=== PATIENT | female | born 1950 | race Caucasian/White ===

== ENCOUNTER 2022-10-18 10:18 | Emergency (ER) | payer MEDICARE, SELFPAY ==
[2022-10-18 10:34] VITALS: BP 179/65; PULSE 60; RESP 18; TEMP 36.6; O2SAT 99; BMI 28.8
--- NOTE | 2022-10-18 10:38 | PC.NURSE ---
72 y/o F pw concerns for elevated blood pressure this AM. pt with hx of HTN. VSS, aox3, santosh hudson recs
[2022-10-18 11:14] VITALS: BP 153/51; PULSE 51; RESP 16; TEMP 36.8; O2SAT 93
--- NOTE | 2022-10-18 11:55 | ECG_ITS ---
Test Reason : CP Blood Pressure : / mmHG Vent. Rate : 048 BPM Atrial Rate : 048 BPM P-R Int : 164 ms QRS Dur : 078 ms QT Int : 476 ms P-R-T Axes : 048 000 008 degrees QTc Int : 425 ms Sinus bradycardia Otherwise normal ECG No previous ECGs available Referred By: Romero Stokes Electronically Signed By:HARMONY LARRY MD
--- NOTE | 2022-10-18 11:56 | ED.GENADULT ---
HPI - General Adult General Chief complaint: General Medical Stated complaint: high bp lightheaded Time Seen by Provider: 10/18/22 11:22 Source: patient Mode of arrival: ambulatory Limitations: no limitations History of Present Illness HPI narrative: 72-year-old female with history of hypertension presents from dermatology office with elevated blood pressure. She has history of hypertension for which he takes triamterene-hydrochlorothiazide and atenolol. She denies any chest pain, shortness breath, palpitations. She does have intermittent lightheadedness. The symptoms started approximately 3 months ago. She has reported that her blood pressure has been more on the elevated side as of recent. She has been on her same medications for quite some time. This patient denies any headache, nausea, vomiting, vision changes or any additional other complaints at this time Related Data Home Medications Medication Instructions Recorded Confirmed ascorbate calcium (vitamin C) 500 500 mg PO DAILY 05/28/22 08/09/22 mg tablet cholecalciferol (vitamin D3) 25 25 mcg PO DAILY 05/28/22 08/09/22 mcg (1,000 unit) capsule citalopram 20 mg tablet 20 mg PO DAILY 05/28/22 08/09/22 docusate sodium 100 mg capsule 100 mg PO DAILY 05/28/22 08/09/22 (Colace) potassium citrate 10 mEq (1,080 10 meq PO DAILY 05/28/22 08/09/22 mg) tablet,extended release simvastatin 40 mg tablet 40 mg PO QPM 05/28/22 08/09/22 triamterene 75 1 tab PO DAILY 05/28/22 08/09/22 mg-hydrochlorothiazide 50 mg tablet Previous Rx's Medication Instructions Recorded blood pressure monitor (Blood #1 ea 05/28/22 Pressure Kit) triamcinolone acetonide 0.5 % 1 appl topical BID #15 grams 05/28/22 topical cream alprazolam 0.25 mg tablet 0.25 mg PO BEDTIME PRN sleep #10 08/09/22 tabs blood pressure monitor (Blood #1 ea 08/09/22 Pressure Kit) omeprazole 20 mg capsule,delayed 20 mg PO DAILY #30 caps 08/09/22 release cephalexin 500 mg capsule 500 mg PO BID #14 caps 10/18/22 lisinopril 10 mg tablet 10 mg PO DAILY #14 tabs 10/18/22 lisinopril 10 mg tablet 10 mg PO DAILY #30 tabs 10/18/22 Allergies Allergy/AdvReac Type Severity Reaction Status Date / Time Sulfa (Sulfonamide Allergy Severe Anaphylaxis Verified 08/09/22 14:54 Antibiotics) atenolol AdvReac Intermediate bradycardia Verified 10/18/22 13:18 Review of Systems Review of Systems: Yes all other systems are reviewed and are negative Constitutional: Constitutional: Reports no additional constitutional complaints Eyes: Eyes: Reports no additional eye complaints ENT: Reports system reviewed and no additional complaints, except as documented Cardiovascular: Cardiovascular: Reports no additional cardiovascular complaints and Reports lightheadedness Respiratory: Respiratory: Reports no additional respiratory complaints Gastrointestinal: Gastrointestinal: Reports no additional gastrointestinal complaints Genitourinary: Genitourinary: Reports no additional female genitourinary complaints Musculoskeletal: Musculoskeletal: Reports no additional musculoskeletal complaints Integumentary/Breasts: Skin/Breast: Reports system reviewed and no additional complaints, except as docu Neurologic: Reports system reviewed and no additional complaints, except as documented Psychiatric: Psychiatric: Reports no additional psychiatric complaints Endocrine: Endocrine: Reports no additional endocrine complaints Hematologic/Lymphatic: Hematologic/Lymphatic: Reports no additional hematologic/lymphatic complaints Allergic/Immunologic: Allergic/Immunologic: Reports no additional allergic/immunologic complaints REPLACED BY [facility] Past Medical History Attestation statement: The following information was validated with the patient. (Hypertension, squamous cell carcinoma) Surgical History H/O eye surgery H/O rectocele repair Hx of tonsillectomy Family History Family History Father No problems noted. Mother No problems noted. Sister No problems noted. Daughter No problems noted. Daughter No problems noted. Social History Social History Housing: House Alcohol intake: current Patient Tobacco Use Status: Former Tobacco user Tobacco use type: Cigarette Years Smoked: quit 1984 e-Cigarette/Vaping Use: Never Used Second Hand Smoke Exposure: No Advance Directives: No Current occupational status: retired Cognitive needs: No Hearing needs: No Vision needs: Yes Physical Exam ED Vital Signs: Vital Signs - 24 hr 10/18/22 10:34 10/18/22 11:14 Temperature 97.9 F 98.2 F Pulse Rate 60 51 Respiratory Rate 18 16 Blood Pressure 179/65 H 153/51 H Pulse Oximetry 99 93 Oxygen Delivery Method Room Air Room Air BMI result Body Mass Index 28.8 Const General: cooperative, healthy appearing, comfortable, no acute distress, well developed, alert, awake and Physically active Orientation/consciousness: oriented to person, oriented to place, oriented to time and patient oriented x3 HENMT Head: Yes normal to inspection Eyes General: appearance normal, both eyes and all related structures Neck Neck: Yes no JVD Resp Effort & Inspection: normal respiratory effort and able to speak in complete sentences Auscultation: clear to auscultation bilaterally Cardio Rate: regular rate Rhythm: regular rhythm Heart sounds: no gallops, no murmurs and no rubs GI Palpation (GI): nontender Skin Lesions: lesion noted (right leg) Neuro General: oriented to person, oriented to place, oriented to time, patient oriented x3, moves all extremities, no focal motor deficits and CN's II-XI intact bilaterally Psych Appearance: grossly normal Course Course Course Narrative: 72-year-old female with history of hypertension presents for evaluation of hypertension. She does have some intermittent lightheadedness over the past 3 months. Her examination is unremarkable. Obtain EKG, , CBC, metabolic panel, urinalysis. Differential diagnosis could include anemia, electrolyte abnormality, hypokalemia, hyponatremia, UTI with, central hypertension, renal insufficiency, under medication. Discussed plan with patient. She understands the reason for workup. Patient at this time does not require blood pressure management acutely. She is not hypertensive urgency or emergency. Patient can follow up with primary care provider for medication adjustments. Reevaluation(s) Reevaluation #1: Discussed results with patient as well as her primary care provider Dr. Jenkins. It is likely that she may be lightheaded from symptomatic bradycardia. Will stop her atenolol and we will start her on lisinopril 10 mg to follow-up with her primary care provider. In addition, she has slight evidence for urinary tract infection. Will put her on Keflex 500 mg twice a day for Time: 13:59 Medical Decision Making Medical Decision Making MDM Narrative: 72-year-old female presents for asymptomatic hypertension. Patient has a longstanding history of hypertension currently on 3 medications. She does report 3 month history of intermittent lightheadedness. Evaluation was unremarkable. She was mildly hypertensive. She is compliant with her medications. I suspect patient will be able to be discharged home following workup. I will obtain an EKG given her history of lightheadedness to rule out cardiac dysrhythmia. I will also obtain a laboratory analysis to rule out anemia, electrolyte abnormality. She does not need any cardiac enzymes as her symptoms have been going on for 3 months, denies any chest pain or other significant cardiac symptoms at this time. Patient was referred by her primary care doctor's office. Differential Diagnosis Differential Diagnoses: The differential diagnosis associated with the presentation includes (Hypertension, hypertensive urgency, hypertensive emergency, electrolyte abnormality, anemia, cardiac dysrhythmia, renal insufficiency) Hypertension Admission/Observation Consideration of admission/observation: Escalation of care including admission/observation considered (However, patient's blood pressure is appropriately controlled at this time that she could follow up for medication adjustment as an outpatient.) Consult Healthcare Provider Management of the patient was discussed with: Primary Care Provider (Dr. Winkler) Lab Data MDM Lab Attestation statement: I reviewed the patient's lab results. 10/18/22 12:08 10/18/22 12:08 Labs: Lab Results 10/18/22 10/18/22 10/18/22 Range/Units 12:08 12:08 13:07 WBC 8.5 (4.8-10.8) X10*3/uL RBC 4.58 (4.20-5.50) X10*6/uL Hgb 13.5 (12.0-16.0) g/dl Hct 40.6 (37.0-47.0) % MCV 88.6 (80.0-98.0) fL MCH 29.5 (27.0-33.0) pg MCHC 33.3 (31.0-35.0) g/dl RDW 12.7 (11.0-16.0) % Plt Count 277 (160-400) X10*3/uL MPV 9.7 (9.4-12.3) fL Immature Gran % (Auto) 0.4 (0.0-0.4) % Neut % (Auto) 69.0 (45-73) % Lymph % (Auto) 20.6 (20-40) % [place] % (Auto) 8.9 (2-11) % Eos % (Auto) 0.6 (0-4) % Baso % (Auto) 0.5 (0-2) % Lymph # (Auto) 1.8 (1.2-4.9) X10*3/uL [place] # (Auto) 0.8 (0.1-1.2) X10*3/uL Eos # (Auto) 0.1 (0.0-0.4) X10*3/uL Baso # (Auto) 0.0 (0.0-0.2) X10*3/uL Abs Immat Gran (auto) 0.03 (0.00-0.03) X10*3/uL Absolute Neuts (auto) 5.9 (2.0-8.3) x10*3/uL Absolute Nucleated RBC 0.000 (0.0-0.012) X10*3/uL Nucleated RBC % (auto) 0.0 (0.0-0.2) /100WBC Sodium 135 (135-145) mmol/L Potassium 4.1 (3.3-5.1) mmol/L Chloride 102 (96-108) mmol/L Carbon Dioxide 25 (22-29) mmol/L Anion Gap 12 (12-20) BUN 19 H (9-16) mg/dL Creatinine 0.79 (0.5-1.4) mg/dL Estim Creat Clear Calc 71.7 Estimated GFR > 60 Random Glucose 98 (60-115) mg/dL Calcium 9.3 (8.4-10.2) mg/dL Urine Color Yellow Urine Appearance Turbid Urine pH 8.0 (5.0-9.0) Ur Specific [place] 1.010 (1.005-1.025) Urine Protein Negative (Neg-Trace) mg/dL Urine Glucose (UA) Negative (Negative) mg/dL Urine Ketones Negative (Negative) mg/dL Urine Blood Negative (Negative) Urine Nitrite Negative (Negative) Ur Leukocyte Esterase Small (1+) H (Negative) Urine RBC 0-2 (0-2) /HPF Urine WBC 11-20 H (0-5) /HPF Ur Squamous Epith Cells >20 (0-2) /HPF Urine Bacteria 4+ (None Seen) Hyaline Casts 0-2 (0-2) /LPF Independent Interpretation I performed an independent interpretation of an: EKG (Sinus bradycardia heart rate 48, normal intervals, nonspecific T-wave changes, no acute ST elevations or depressions.) External Record Review External record reviewed: Office record ( Po) Tests considered The following testing was considered but not selected: Troponin, however, patient does not have any active ischemic symptoms her symptoms appear to be stable and chronic in nature. Doubt acute coronary syndrome. Chronic Conditions Patient?s care impacted by: Hypertension Core Measures Measure exclusions: not indicated Discharge Plan Discharge Clinical Impression: Hypertension, Acute UTI Patient Disposition: Home, Self-Care Instructions: Urinary Tract Infection in Women (ED), Hypertension (ED) Additional Instructions: Stop taking your atenolol until you speak with your primary care provider Prescriptions: New cephalexin 500 mg capsule 500 mg PO BID Qty: 14 0RF lisinopril 10 mg tablet 10 mg PO DAILY Qty: 14 0RF No Action lisinopril 10 mg tablet 10 mg PO DAILY Qty: 30 0RF simvastatin 40 mg tablet 40 mg PO QPM citalopram 20 mg tablet 20 mg PO DAILY triamterene-hydrochlorothiazid 75-50 mg tablet 1 tab PO DAILY docusate sodium [Colace] 100 mg capsule 100 mg PO DAILY (DME) blood pressure monitor [Blood Pressure Kit] Kit See Rx Instructions .ROUTE .MEDSUPPLY Qty: 1 0RF Rx Instructions: As directed cholecalciferol (vitamin D3) 25 mcg (1,000 unit) capsule 25 mcg PO DAILY potassium citrate 10 mEq (1,080 mg) tablet extended release 10 meq PO DAILY ascorbate calcium (vitamin C) 500 mg tablet 500 mg PO DAILY triamcinolone acetonide 0.5 % cream 1 appl topical BID Qty: 15 0RF alprazolam 0.25 mg tablet 0.25 mg PO BEDTIME PRN (Reason: sleep) Qty: 10 0RF omeprazole 20 mg capsule,delayed release(DR/EC) 20 mg PO DAILY Qty: 30 0RF (DME) blood pressure monitor [Blood Pressure Kit] Kit See Rx Instructions .ROUTE .MEDSUPPLY Qty: 1 0RF Rx Instructions: As directed Interventions: ED Discharge Assessment Last Done: 10/18/22 14:00 Discharge Date/Time: 10/18/22 14:01
[2022-10-18 12:18] LABS: MANUAL DIFF FLAG NO
[2022-10-18 12:20] LABS: Basophils Percent Auto 0.5 % (0-2); Eosinophils Absolute Auto 0.1 X10*3/uL (0.0-0.4); Eosinophils Percent Auto 0.6 % (0-4); Hematocrit 40.6 % (37.0-47.0); Hemoglobin 13.5 g/dl (12.0-16.0); Imm Gran Abs Auto 0.03 X10*3/uL (0.00-0.03); Imm Gran Pct Auto 0.4 % (0.0-0.4); Lymphocytes Absolute Auto 1.8 X10*3/uL (1.2-4.9); Lymphocytes Percent Auto 20.6 % (20-40); Mean Corpuscular HGB Conc 33.3 g/dl (31.0-35.0); Mean Corpuscular Hemoglobin 29.5 pg (27.0-33.0); Mean Corpuscular Volume 88.6 fL (80.0-98.0); Mean Platelet Volume 9.7 fL (9.4-12.3); Monocytes Absolute Auto 0.8 X10*3/uL (0.1-1.2); Monocytes Percent Auto 8.9 % (2-11); Neutrophils Absolute Auto 5.9 x10*3/uL (2.0-8.3); Platelet Count 277 X10*3/uL (160-400); Red Blood Count 4.58 X10*6/uL (4.20-5.50); Red Cell Distribution Width 12.7 % (11.0-16.0); White Blood Count 8.5 X10*3/uL (4.8-10.8)
[2022-10-18 12:44] LABS: Anion Gap 12 (12-20); Blood Urea Nitrogen 19 mg/dL (9-16); Calcium 9.3 mg/dL (8.4-10.2); Carbon Dioxide 25 mmol/L (22-29); Chloride 102 mmol/L (96-108); Creatinine Clr Calc Pharmacy 71.7; Estimated Glomerular Filt Rate > 60; Glucose Random 98 mg/dL (60-115); Potassium 4.1 mmol/L (3.3-5.1); Sodium 135 mmol/L (135-145)
[2022-10-18 13:18] LABS: Appearance Urine Turbid; Color Urine Yellow; Glucose Urine UA Negative (Negative); Leukocyte Esterase Urine Small (1+) (Negative); Nitrite Urine Negative (Negative); UMIC TRIGGER UACC YES; Urine Blood Negative (Negative); Urine Ketones Negative (Negative); Urine Protein Negative (Neg-Trace)
[2022-10-18 13:52] LABS: Bacteria Urine 4+ (None Seen); Hyaline Casts Urine 0-2 /LPF (0-2); RBC Urine 0-2 /HPF (0-2); Squamous Epithelial Cell Urine >20 /HPF (0-2); UACC Culture Trigger YES
== END 2022-10-18 14:01 | disposition home or self-care (01) ==
PROVIDERS: Emergency Provider Emergency Medicine; PCP Internal Medicine
DX: I10 Essential (primary) hypertension (principal); R42 Dizziness and giddiness; N39.0 Urinary tract infection, site not specified
CPT/HCPCS: 36415; 80048; 81001; 85025; 87086; 93005; 99283; 99284

== ENCOUNTER 2023-02-21 09:27 | Outpatient (REF) | payer MEDICARE, SELFPAY ==
[2023-02-21 11:23] LABS: MANUAL DIFF FLAG NO
[2023-02-21 11:37] LABS: Basophils Percent Auto 0.4 % (0-2); Eosinophils Absolute Auto 0.1 X10*3/uL (0.0-0.4); Eosinophils Percent Auto 1.2 % (0-4); Hematocrit 40.3 % (37.0-47.0); Hemoglobin 13.4 g/dl (12.0-16.0); Imm Gran Abs Auto 0.02 X10*3/uL (0.00-0.03); Imm Gran Pct Auto 0.4 % (0.0-0.4); Lymphocytes Absolute Auto 1.3 X10*3/uL (1.2-4.9); Lymphocytes Percent Auto 23.4 % (20-40); Mean Corpuscular HGB Conc 33.3 g/dl (31.0-35.0); Mean Corpuscular Hemoglobin 30.2 pg (27.0-33.0); Mean Platelet Volume 10.2 fL (9.4-12.3); Monocytes Absolute Auto 0.6 X10*3/uL (0.1-1.2); Monocytes Percent Auto 11.2 % (2-11); Neutrophils Absolute Auto 3.6 x10*3/uL (2.0-8.3); Neutrophils Percent Auto 63.4 % (45-73); Platelet Count 304 X10*3/uL (160-400); Red Blood Count 4.43 X10*6/uL (4.20-5.50); Red Cell Distribution Width 13.7 % (11.0-16.0); White Blood Count 5.7 X10*3/uL (4.8-10.8)
[2023-02-21 12:00] LABS: Alanine Aminotransferase 14 U/L (0-31); Albumin Level 4.3 g/dL (3.5-5.0); Alkaline Phosphatase 53 U/L (39-117); Anion Gap 14 (12-20); Aspartate Amino Transferase 18 U/L (5-31); Bilirubin Total 0.7 mg/dL (0.0-1.0); Blood Urea Nitrogen 20 mg/dL (9-16); Calcium 9.9 mg/dL (8.4-10.2); Carbon Dioxide 27 mmol/L (22-29); Chloride 102 mmol/L (96-108); Cholesterol 264 mg/dL; Estimated Glomerular Filt Rate > 60; Glucose Random 102 mg/dL (60-115); HDL Cholesterol 70 mg/dL; LDL Cholesterol Calculated 171 mg/dl; Potassium 3.9 mmol/L (3.3-5.1); Sodium 139 mmol/L (135-145); Triglycerides 118 mg/dL
[2023-02-21 12:31] LABS: Folate 9.4 ng/mL (> or = 4.0); Free T4 (Free Thyroxine) 1.12 ng/dL (0.71-1.85); Thyroid Stimulating Hormone 3.91 uIU/mL (0.32-4.0); Vitamin B12 276 pg/mL (200-900)
== END 2023-02-21 09:28 | disposition home or self-care (01) ==
LOC: HO.HMGCLDS 09:27
PROVIDERS: PCP Internal Medicine; Visit Provider Internal Medicine
DX: E78.00 Pure hypercholesterolemia, unspecified (principal); E55.9 Vitamin D deficiency, unspecified
CPT/HCPCS: 36415; 80053; 80061; 82306; 82607; 82746; 84439; 84443; 85025

== ENCOUNTER 2023-03-03 10:23 | Outpatient (REF) | payer MEDICARE, SELFPAY ==
[2023-03-03 12:27] LABS: Influenza A PCR NEGATIVE (Negative); Influenza B PCR NEGATIVE (Negative); Resp Syncy Virus RNA Qual PCR NEGATIVE (Negative); SARS COV2 PCR INHOUSE NEGATIVE (Negative)
== END 2023-03-03 10:24 | disposition home or self-care (01) ==
LOC: HO.LAB 10:23
PROVIDERS: Visit Provider Physician Assistant
DX: Z20.822 Contact with and (suspected) exposure to COVID-19 (principal); R09.89 Other specified symptoms and signs involving the circulatory and respiratory systems
CPT/HCPCS: 0241U

== ENCOUNTER 2023-03-13 07:40 | Emergency (ER) | payer MEDICARE, SELFPAY ==
--- NOTE | ~2023-03-13 | CT_ITS ---
EXAMINATION: CT ABDOMEN AND PELVIS WITH CONTRAST CLINICAL INFORMATION: Acute gastrointestinal bleeding. Suspect colitis. COMPARISON: None available. TECHNIQUE: Multidetector volumetric images were obtained from the superior aspect of the liver through the pubic symphysis following administration 85 mL of Isovue 370 intravenous contrast. Sagittal and coronal reformatted images were obtained on the technologist's workstation. Oral contrast: No This CT examination was performed using dose optimization techniques as appropriate, variously including the following: *Automated exposure control *Adjustment of mA and/or kV according to patient size (this includes techniques or standardized protocols for targeted exams where dose is matched to indication/reason for exam; i.e. extremities or head) *Use of iterative reconstruction technique DLP: 519 mGy-cm FINDINGS: LUNG BASES: Nonspecific distal esophageal wall thickening. Moderate hiatal hernia. LIVER, GALLBLADDER, AND BILIARY TREE: The liver is normal in size and contour. 2.9 cm posterior right hepatic cyst. Additional hypodensities are too small to characterize. No suspicious hepatic lesion or biliary ductal dilatation is present. The gallbladder is unremarkable with no evidence of radiopaque gallstones, gallbladder wall thickening, or obvious pericholecystic inflammatory changes. PANCREAS: No ductal dilatation. SPLEEN: Not enlarged. Few hypodensities too small to characterize. ADRENAL GLANDS: Nodular thickening at the apex of the left adrenal gland. KIDNEYS AND URETERS: The kidneys are symmetric in size. There is a lobulated contour to the kidneys. The kidneys enhance somewhat heterogeneously with possible striated nephrograms. No hydronephrosis or hydroureter. BLADDER: Unremarkable. GASTROINTESTINAL TRACT: Wall thickening of the rectosigmoid colon small and large bowel loops are of normal caliber. Inadequate distention of the hepatic flexure and proximal transverse colon limits evaluation. No small bowel obstruction. ABDOMINAL WALL: No significant hernia is appreciated. LYMPH NODES: No bulky abdominal or pelvic lymphadenopathy. VASCULAR: Marked atherosclerotic changes of the distal abdominal aorta. No abdominal aortic aneurysm. PELVIC VISCERA: The uterus and adnexa are unremarkable. OSSEOUS STRUCTURES: No destructive bone lesions. CT/CT abdomen pelvis w IV con IMPRESSION: Wall thickening of the rectosigmoid colon. Correlation should be made with direct visualization. Heterogeneous enhancement of bilateral kidneys with possible striated nephrograms. Advise correlation with urinalysis to exclude infection.
[2023-03-13 07:48] VITALS: BP 136/66; PULSE 80; RESP 16; TEMP 36.8; O2SAT 97; BMI 29.9
[2023-03-13 07:54] VITALS: BP 136/66; PULSE 80; RESP 16; TEMP 36.8; O2SAT 97
[2023-03-13 08:35] LABS: MANUAL DIFF FLAG NO
[2023-03-13] MEDS: 0.9 % Sodium Chloride 1,000 ML 999 ML IV (08:35)
[2023-03-13 08:37] LABS: Basophils Percent Auto 0.3 % (0-2); Eosinophils Absolute Auto 0.1 X10*3/uL (0.0-0.4); Eosinophils Percent Auto 0.8 % (0-4); Hematocrit 39.8 % (37.0-47.0); Hemoglobin 13.2 g/dl (12.0-16.0); Imm Gran Abs Auto 0.04 X10*3/uL (0.00-0.03); Imm Gran Pct Auto 0.4 % (0.0-0.4); Lymphocytes Absolute Auto 1.7 X10*3/uL (1.2-4.9); Lymphocytes Percent Auto 17.9 % (20-40); Mean Corpuscular HGB Conc 33.2 g/dl (31.0-35.0); Mean Corpuscular Hemoglobin 29.6 pg (27.0-33.0); Mean Corpuscular Volume 89.2 fL (80.0-98.0); Mean Platelet Volume 9.3 fL (9.4-12.3); Monocytes Absolute Auto 0.8 X10*3/uL (0.1-1.2); Monocytes Percent Auto 8.3 % (2-11); Neutrophils Absolute Auto 6.7 x10*3/uL (2.0-8.3); Neutrophils Percent Auto 72.3 % (45-73); Platelet Count 316 X10*3/uL (160-400); Red Blood Count 4.46 X10*6/uL (4.20-5.50); Red Cell Distribution Width 13.2 % (11.0-16.0); White Blood Count 9.3 X10*3/uL (4.8-10.8)
[2023-03-13 08:48] LABS: Prothrombin Time 10.9 SEC (10.0-13.1)
[2023-03-13 08:49] LABS: Anion Gap 14 (12-20); Blood Urea Nitrogen 32 mg/dL (9-16); C Reactive Protein 0.21 mg/dL (< or = 0.50); Calcium 9.6 mg/dL (8.4-10.2); Carbon Dioxide 25 mmol/L (22-29); Chloride 105 mmol/L (96-108); Creatinine Clr Calc Pharmacy 41.4; Estimated Glomerular Filt Rate 50; Glucose Random 106 mg/dL (60-115); Potassium 3.7 mmol/L (3.3-5.1); Sodium 140 mmol/L (135-145)
[2023-03-13 09:14] LABS: Erythrocyte Sedimentation Rate 20 MM/HR (0-20)
[2023-03-13] MEDS: iohexoL 350 MG/ML 75 ML INFUS..BTL 85 ML IV (09:37)
--- NOTE | 2023-03-13 10:06 | ED.GIBLEED ---
HPI - GI Bleed General Chief complaint: GI Bleed Stated complaint: bloody diarrhea Time Seen by Provider: 03/13/23 07:55 Source: patient Mode of arrival: ambulatory Limitations: no limitations History of Present Illness HPI Narrative: 72-year-old female presents with GI bleed. Symptoms started today. Her symptoms are preceded with 2 weeks of diarrhea. Patient's was been watery nonbloody, no melena. She denies any significant abdominal pain, fever chills. There is no relieving or exacerbating features. Yesterday she noted a small amount of blood on toilet tissue. Today, she had a dry a real episode with significant amount of blood in the stool. She feels slightly lightheaded but no nausea vomiting. Patient describes her symptoms as moderate to severe. She denies a history of this. Related Data Home Medications Medication Instructions Recorded Confirmed ascorbate calcium (vitamin C) 500 500 mg PO DAILY 05/28/22 02/06/23 mg tablet cholecalciferol (vitamin D3) 25 25 mcg PO DAILY 05/28/22 02/06/23 mcg (1,000 unit) capsule docusate sodium 100 mg capsule 100 mg PO DAILY 05/28/22 02/06/23 (Colace) potassium citrate 10 mEq (1,080 10 meq PO DAILY 05/28/22 02/06/23 mg) tablet,extended release Previous Rx's Medication Instructions Recorded triamcinolone acetonide 0.5 % 1 appl topical BID #15 grams 05/28/22 topical cream blood pressure monitor (Blood #1 ea 08/09/22 Pressure Kit) omeprazole 20 mg capsule,delayed 20 mg PO DAILY #30 caps 08/09/22 release citalopram 20 mg tablet 20 mg PO DAILY #90 tabs 12/18/22 alprazolam 0.5 mg tablet 0.25 mg PO BEDTIME PRN sleep #10 02/21/23 tabs azithromycin 250 mg tablet 250 mg PO DAILY 5 days #6 tabs 03/03/23 (Zithromax Z-Dylan) cetirizine 10 mg tablet (All Day 10 mg PO DAILY #90 tabs 03/12/23 Allergy (cetirizine)) lisinopril 10 mg tablet 10 mg PO DAILY 90 days #90 tabs 03/12/23 simvastatin 40 mg tablet 40 mg PO QPM #90 tabs 03/12/23 triamterene 75 1 tab PO DAILY 90 days #90 tabs 03/12/23 mg-hydrochlorothiazide 50 mg tablet Allergies Allergy/AdvReac Type Severity Reaction Status Date / Time Sulfa (Sulfonamide Allergy Severe Anaphylaxis Verified 03/03/23 09:57 Antibiotics) atenolol AdvReac Intermediate bradycardia Verified 03/03/23 09:57 Review of Systems Review of Systems: CONSTITUTIONAL: Denies weight loss, fever and chills. HEENT: Denies changes in vision and hearing. RESPIRATORY: Denies SOB and cough. CV: Denies palpitations no CP. GI: See HPI : Denies dysuria and urinary frequency. MSK: Denies myalgia and joint pain. SKIN: Denies rash and pruritus. NEUROLOGICAL: Denies headache and syncope. PSYCHIATRIC: Denies recent changes in mood. Denies anxiety and depression. All other ROS are negative unless in HPI PMFSH Past Medical History Surgical History H/O eye surgery H/O rectocele repair Hx of tonsillectomy Family History Family History Father No problems noted. Mother No problems noted. Sister No problems noted. Daughter No problems noted. Daughter No problems noted. Social History Social History Housing: House Alcohol intake: current Alcohol intake frequency: 0-2 drinks per day Patient Tobacco Use Status: Former Tobacco user Tobacco use type: Cigarette Years Smoked: quit 1985 Smoked in Last 30 Days: No e-Cigarette/Vaping Use: Never Used Second Hand Smoke Exposure: No Use of substances other than those prescribed or required for medical reasons: No Advance Directives: No Advance Directives Information Provided: Yes Current occupational status: retired Cognitive needs: No Hearing needs: No Vision needs: Yes Physical Exam Vital Signs: Vital Signs: Last Vital Signs Temp 98.3 F 03/13/23 07:54 Pulse 80 03/13/23 07:54 Resp 16 03/13/23 07:54 BP 136/66 03/13/23 07:54 Pulse Ox 97 03/13/23 07:54 O2 Del Method Room Air 03/13/23 07:54 BMI result Body Mass Index 29.9 GEN: Well developed, no acute distress, alert, oriented HEENT: Normocephalic, atraumatic, normal external ears, nose appears normal, no oropharyngeal edema or exudates Eyes: Normal to appearance Neck: Supple, no lymphadenopathy Respiratory: Talks in complete sentences, no respiratory distress, clear to auscultation bilaterally Cardiovascular: Regular rate and rhythm, no murmurs rubs or gallops Abdomen: Soft, nontender, nondistended, no guarding, no rebound Back: No CVA tenderness Extremities: No clubbing cyanosis or edema Neurologic: No focal neurologic deficits, cranial nerves 2-12 intact, strength is 5/5 bilaterally Skin: No rash Course Course Course Narrative: 72-year-old female presents with lower GI bleed. Examination was benign. She is not orthostatic. CT scan shows a focal area of colitis. Will treat with antibiotics. Gave strict return instructions pressure regarding the GI bleeding. Her hemoglobin hematocrit were stable. She has no evidence of bleeding diathesis. Patient understands all discharge instructions and all questions were addressed and answered. Medications Administered Discontinued Medications Generic Name Dose Route Start Last Admin Trade Name Freq PRN Reason Stop Dose Admin Sodium Chloride 1,000 mls @ 999 mls/hr 03/13/23 08:15 03/13/23 08:35 Ns IV 03/13/23 09:15 999 mls/hr .Q1H1M PREM Administration Iohexol 85 ml 03/13/23 09:36 03/13/23 09:37 Iohexol 350 Mg/Ml 75 Ml Infus..Btl IV 03/13/23 09:37 85 ml ONCE ONE Administration Medical Decision Making Medical Decision Making [facility] Narrative: 72-year-old female presents with lower GI bleed and diarrhea for 2 weeks. Differential diagnosis: Hemorrhoidal, diverticular, colitis, vascular Plan CT scan of the abdomen pelvis, laboratory analysis, orthostatic vital signs frequent re-evaluation. Doubt cause traffic pathology such as aorta enteric fistula, AAA, dissection, massive GI hemorrhage Differential Diagnosis Differential Diagnoses: The differential diagnosis associated with the presentation includes (See above) Colitis, GI bleed Lab Data 03/13/23 08:28 03/13/23 08:28 Labs: Lab Results 03/13/23 03/13/23 03/13/23 Range/Units 08:28 08:28 08:28 WBC 9.3 (4.8-10.8) X10*3/uL RBC 4.46 (4.20-5.50) X10*6/uL Hgb 13.2 (12.0-16.0) g/dl Hct 39.8 (37.0-47.0) % MCV 89.2 (80.0-98.0) fL MCH 29.6 (27.0-33.0) pg MCHC 33.2 (31.0-35.0) g/dl RDW 13.2 (11.0-16.0) % Plt Count 316 (160-400) X10*3/uL MPV 9.3 L (9.4-12.3) fL Immature Gran % (Auto) 0.4 (0.0-0.4) % Neut % (Auto) 72.3 (45-73) % Lymph % (Auto) 17.9 L (20-40) % [place] % (Auto) 8.3 (2-11) % Eos % (Auto) 0.8 (0-4) % Baso % (Auto) 0.3 (0-2) % Lymph # (Auto) 1.7 (1.2-4.9) X10*3/uL [place] # (Auto) 0.8 (0.1-1.2) X10*3/uL Eos # (Auto) 0.1 (0.0-0.4) X10*3/uL Baso # (Auto) 0.0 (0.0-0.2) X10*3/uL Abs Immat Gran (auto) 0.04 H (0.00-0.03) X10*3/uL Absolute Neuts (auto) 6.7 (2.0-8.3) x10*3/uL Absolute Nucleated RBC 0.000 (0.0-0.012) X10*3/uL Nucleated RBC % (auto) 0.0 (0.0-0.2) /100WBC ESR 20 (0-20) MM/HR PT 10.9 (10.0-13.1) SEC INR 1.0 (0.9-1.1) APTT 40.0 H (26.0-36.4) SEC Sodium (135-145) mmol/L Potassium (3.3-5.1) mmol/L Chloride (96-108) mmol/L Carbon Dioxide (22-29) mmol/L Anion Gap (12-20) BUN (9-16) mg/dL Creatinine (0.5-1.4) mg/dL Estim Creat Clear Calc Estimated GFR Random Glucose (60-115) mg/dL Calcium (8.4-10.2) mg/dL C-Reactive Protein (< or = 0.50) mg/dL 03/13/23 Range/Units 08:28 WBC (4.8-10.8) X10*3/uL RBC (4.20-5.50) X10*6/uL Hgb (12.0-16.0) g/dl Hct (37.0-47.0) % MCV (80.0-98.0) fL MCH (27.0-33.0) pg MCHC (31.0-35.0) g/dl RDW (11.0-16.0) % Plt Count (160-400) X10*3/uL MPV (9.4-12.3) fL Immature Gran % (Auto) (0.0-0.4) % Neut % (Auto) (45-73) % Lymph % (Auto) (20-40) % [place] % (Auto) (2-11) % Eos % (Auto) (0-4) % Baso % (Auto) (0-2) % Lymph # (Auto) (1.2-4.9) X10*3/uL [place] # (Auto) (0.1-1.2) X10*3/uL Eos # (Auto) (0.0-0.4) X10*3/uL Baso # (Auto) (0.0-0.2) X10*3/uL Abs Immat Gran (auto) (0.00-0.03) X10*3/uL Absolute Neuts (auto) (2.0-8.3) x10*3/uL Absolute Nucleated RBC (0.0-0.012) X10*3/uL Nucleated RBC % (auto) (0.0-0.2) /100WBC ESR (0-20) MM/HR PT (10.0-13.1) SEC INR (0.9-1.1) APTT (26.0-36.4) SEC Sodium 140 (135-145) mmol/L Potassium 3.7 (3.3-5.1) mmol/L Chloride 105 (96-108) mmol/L Carbon Dioxide 25 (22-29) mmol/L Anion Gap 14 (12-20) BUN 32 H (9-16) mg/dL Creatinine 1.08 (0.5-1.4) mg/dL Estim Creat Clear Calc 41.4 Estimated GFR 50 Random Glucose 106 (60-115) mg/dL Calcium 9.6 (8.4-10.2) mg/dL C-Reactive Protein 0.21 (< or = 0.50) mg/dL Independent Interpretation I performed an independent interpretation of an: CT Scan (Abdomen pelvis focal area of colitis) Radiology Impression Discussion of test interpretation with radiology: I have reviewed the radiologist's reading. Radiologist Impression: IMPRESSION: Wall thickening of the rectosigmoid colon. Correlation should be made with direct visualization. ? Heterogeneous enhancement of bilateral kidneys with possible striated nephrograms. Advise correlation with urinalysis to exclude infection. Dictated By: Ashley Baird MD Signed By: <Electronically signed by Ashley Baird MD in [place]> 03/13/23 0953 DD/ 0830 TD/TT:? [employer]: Prescription Management I considered prescription management with: Antibiotic Discharge Plan Discharge Clinical Impression: Lower gastrointestinal hemorrhage, Colitis Patient Disposition: Home, Self-Care Instructions: Gastrointestinal Bleeding (ED), Colitis (ED) Prescriptions: No Action citalopram 20 mg tablet 20 mg PO DAILY Qty: 90 1RF alprazolam 0.5 mg tablet 0.25 mg PO BEDTIME PRN (Reason: sleep) Qty: 10 0RF cetirizine [All Day Allergy (cetirizine)] 10 mg tablet 10 mg PO DAILY Qty: 90 0RF lisinopril 10 mg tablet 10 mg PO DAILY 90 Days Qty: 90 3RF triamterene-hydrochlorothiazid 75-50 mg tablet 1 tab PO DAILY 90 Days Qty: 90 3RF simvastatin 40 mg tablet 40 mg PO QPM Qty: 90 3RF docusate sodium [Colace] 100 mg capsule 100 mg PO DAILY cholecalciferol (vitamin D3) 25 mcg (1,000 unit) capsule 25 mcg PO DAILY potassium citrate 10 mEq (1,080 mg) tablet extended release 10 meq PO DAILY ascorbate calcium (vitamin C) 500 mg tablet 500 mg PO DAILY triamcinolone acetonide 0.5 % cream 1 appl topical BID Qty: 15 0RF omeprazole 20 mg capsule,delayed release(DR/EC) 20 mg PO DAILY Qty: 30 0RF (DME) blood pressure monitor [Blood Pressure Kit] Kit See Rx Instructions .ROUTE .MEDSUPPLY Qty: 1 0RF Rx Instructions: As directed azithromycin [Zithromax Z-Dylan] 250 mg tablet 250 mg PO DAILY 5 Days Qty: 6 0RF Rx Instructions: 2 pills day one then 1 pill per day x 4 days Referrals: Po,Jesenia Lawler MD [Primary Care Provider] - 5 days
[2023-03-13 10:27] VITALS: BP 127/52; PULSE 56
[2023-03-13 10:28] VITALS: BP 143/59; PULSE 59
[2023-03-13 10:31] VITALS: BP 154/64; PULSE 63
[2023-03-13 10:33] VITALS: BP 143/59; PULSE 59; RESP 16; TEMP 36.6; O2SAT 100
== END 2023-03-13 10:45 | disposition home or self-care (01) ==
PROVIDERS: Emergency Provider Emergency Medicine; PCP Internal Medicine
DX: K92.2 Gastrointestinal hemorrhage, unspecified (principal); K52.9 Noninfective gastroenteritis and colitis, unspecified; Z79.899 Other long term (current) drug therapy
CPT/HCPCS: 36415; 74177; 80048; 85025; 85610; 85652; 85730; 86140; 86850; 86900; 86901; 87507; 96360; 96361; 99284; 99285; Q9967

== ENCOUNTER 2023-04-28 09:24 | Outpatient (AMB) | payer MEDICARE, SELFPAY ==
--- NOTE | 2023-04-28 09:26 | MHC.PC.OV ---
Vital Signs 04/28/23 09:27 Height 5 ft 1 in Weight 157 lb BMI 29.7 BP 136/80 Blood Pressure Location Lt brachial Position Sitting Intake Visit Reasons: Dizziness Intake Note: Patient here for a follow up dizziness Manager Of Recruiting Required: No Accompanied by: Self / Same As Patient Allergies Sulfa (Sulfonamide Antibiotics) Allergy (Severe, Verified 04/28/23 09:30) Anaphylaxis atenolol Adverse Reaction (Intermediate, Verified 04/28/23 09:30) bradycardia Tobacco use date assessed: 11/04/22 Fall risk assessment: No Falls in past year Last assessed Fall Risk: 04/28/23 Dental Screening Dental Screen Date: 04/28/23 Did you have a dental visit in the last 12 months?: No Did you have a dental problem in the last 6 months where you did not have access to dental care?: No Was dental information given to patient?: Patient declined HPI HPI Comments History of Present Illness Details 72-year-old female past medical history significant for GERD, hypothyroidism,WILLY, hypercholesteremia, HTN. Patient Dr. Winkler presents today fro ER follow up. Patient reported [facility] ER in February for watery diarrhea denied melena denies significant abdominal pain and a small amount of blood noted on the toilet paper, on the day she presented to the ER at a significant amount of blood in the stool and felt slightly lightheaded. Denies any nausea or vomiting. H&H stable 13.2/39.8, abdominal CT showed colitis. IMPRESSION: Wall thickening of the rectosigmoid colon. Correlation should be made with direct visualization. ? Heterogeneous enhancement of bilateral kidneys with possible striated nephrograms. Advise correlation with urinalysis to exclude infection. Patient was treated with antibiotic and discharged home. Patient denies any abdominal pain, nausea, vomiting, diarrhea or blood in her stool. Patient reports that she started following a gluten free diet which has resolved her symptoms. Patient has an appointment set up to see gastroenterology in July. [facility] Surgical History H/O eye surgery H/O rectocele repair Hx of tonsillectomy Family History Father No problems noted. Mother No problems noted. Sister No problems noted. Daughter No problems noted. Daughter No problems noted. Social History Housing: House Alcohol intake: current Alcohol intake frequency: 0-2 drinks per day Patient Tobacco Use Status: Former Tobacco user Tobacco use type: Cigarette Years Smoked: quit 1985 e-Cigarette/Vaping Use: Never Used Second Hand Smoke Exposure: No service: No Current occupational status: retired Cognitive needs: No Hearing needs: No Vision needs: Yes Questionnaire PHQ-9 Over the last 2 weeks, how often have you been bothered by any of the following problems? 1. Little interest or pleasure in doing things: not at all 2. Feeling down, depressed, or hopeless: several days 3. Trouble falling or staying asleep, or sleeping too much: not at all 4. Feeling tired or having little energy: not at all 5. Poor appetite or overeating: not at all 6. Feeling bad about yourself - or that you are a failure or have let yourself or your family down: not at all 7. Trouble concentrating on things, such as reading the newspaper or watching television: not at all 8. Moving or speaking so slowly that other people could have noticed. Or the opposite - being so fidgety or restless that you have been moving around a lot more than usual: not at all 9. Thoughts that you would be better off or of hurting yourself in some way: not at all Total score: 1 Depression Screening Interpretation: Negative Source: Developed by Drs. Gopi Rodríguez, Estefani Diggs, Juancho Rivero and colleagues, with an educational marquis from [employer]. Thrive Questionnaire Date Thrive assessed: 11/04/22 WILLY-7 AMB Questionnaire WILLY-7 Date WILLY - 7 assessed: 04/28/23 Feeling nervous, anxious, or on edge: 1 = Several days Not being able to stop or control worryin = Not at all Worrying too much about different things: 0 = Not at all Trouble relaxin = Not at all Being so restless that it is hard to sit still: 0 = Not at all Becoming easily annoyed or irritable: 0 = Not at all Feeling afraid as if something awful might happen: 0 = Not at all Total WILLY-7 score (0-4 normal; 5-9 mild; 10-14 moderate; 15-21 severe): 1 Source: Developed by Drs. Gopi Rodríguez, Estefani Diggs, Juancho Rivero and colleagues, with an educational marquis from [employer]. Review of Systems Const Denies chills, Denies fatigue, Denies fever(s) and Denies poor appetite Eyes Denies no additional complaints ENT Reports Normal hearing present Card Denies chest pain, Denies syncope, Denies rapid heart rate and Denies dyspnea Resp Denies cough and Denies dyspnea GI Denies change in stool character, Denies constipation, Denies diarrhea, Denies nausea and Denies vomiting Denies urinary frequency, Denies dysuria and Denies urinary urgency Neuro Reports Normal hearing present, Denies confusion and Denies syncope Psych Denies confusion Endo Denies fatigue Physical exam (Primary Care) Vital Signs: Last Vital Signs BP 136/80 04/28/23 09:27 BMI result Body Mass Index 29.7 Tobacco/Smoking Status: Tobacco use Status Tobacco use date assessed 11/04/22 04/28/23 09:27 Patient Tobacco Use Status Former Tobacco user 04/28/23 09:27 Tobacco use type Cigarette 04/28/23 09:27 e-Cigarette/Vaping Use Never Used 04/28/23 09:27 PHQ-9: PHQ-9 Score PHQ-9: Total score 1 04/28/23 09:45 Depression Screening Interpretation: Negative Thrive Assessment: Date of Thrive Assessment Date Thrive assessed 11/04/22 04/28/23 09:27 Const General: No confusion Orientation/consciousness: No confusion HENMT Head: Yes normocephalic and Yes atraumatic Eyes Conjunctivae: conjunctivae normal Chest Chest palpation & inspection: normal inspection of the chest Resp Effort & Inspection: normal respiratory effort Auscultation: clear to auscultation bilaterally, no crackles, no rhonchi and no wheezes Cardio Rate: regular rate Rhythm: regular rhythm Heart sounds: S1 normal heart sound present and S2 normal heart sound present GI Inspection: Yes normal to inspection Neuro General: No confusion Cranial nerves: Yes Normal hearing present Extrem General: No edema Assessment and Plan Assessment & Plan (1) Colitis: Code(s): K52.9 - Noninfective gastroenteritis and colitis, unspecified Plan: Keep scheduled appointment with gastroenterology in July. Cotninue to follow GF diet since it improved her symptoms. (2) GERD (gastroesophageal reflux disease): Code(s): K21.9 - Gastro-esophageal reflux disease without esophagitis Plan: Continue on omeprazole 20 mg daily. (3) Hypertension: Code(s): I10 - Essential (primary) hypertension Plan: Continue on lisinopril 10 mg daily. Follow low-salt diet and exercise. Blood pressure goal less than 140/90. (4) Hypercholesterolemia: Code(s): E78.00 - Pure hypercholesterolemia, unspecified Plan: Continue on simvastatin 40 mg daily. Follow low-cholesterol diet. Plan Keep scheduled physical exam with PCP, follow up prn Coding Level of Care Code Est Pt Level 4 (45129) Diagnoses Colitis K52.9 GERD (gastroesophageal reflux disease) K21.9 Hypertension I10 Hypercholesterolemia E78.00
[2023-04-28 09:27] VITALS: BP 136/80; BMI 29.7
== END 2023-04-28 09:55 | disposition home or self-care (01) ==
PROVIDERS: PCP Internal Medicine; Visit Provider Nurse Practitioner Family
DX: K52.9 Noninfective gastroenteritis and colitis, unspecified (principal); K21.9 Gastro-esophageal reflux disease without esophagitis; I10 Essential (primary) hypertension; E78.00 Pure hypercholesterolemia, unspecified
CPT/HCPCS: 99214

== ENCOUNTER 2023-05-02 08:17 | Outpatient (REF) | payer MEDICARE, SELFPAY ==
--- NOTE | ~2023-05-02 | US_ITS ---
EXAMINATION: US RETROPERITONEAL LIMITED (RENAL ONLY). RENAL DOPPLER. CLINICAL INFORMATION: Essential hypertension. COMPARISON: CT abdomen and pelvis with IV contrast 03/13/2023 TECHNIQUE: Routine grayscale imaging of both kidneys was obtained. Subsequently color and renal Doppler imaging of the retroperitoneum was performed. FINDINGS: ULTRASOUND KIDNEYS: RIGHT KIDNEY: 10.6 x 3.8 x 4.3 cm (SAG x AP x TRV). The kidney is normal in size, contour, and echogenicity. Renal cortical thickness is normal. There is mild lobulated contour. No calculi or focal parenchymal lesions. No hydronephrosis. LEFT KIDNEY: 10.2 x 4.2 x 3.8. cm (SAG x AP x TRV). The kidney is normal in size, contour, and echogenicity. Renal cortical thickness is normal. There is a lobulated left renal contour. There is an echogenic stone versus calcification in the upper/midpole measuring 0.2 x 0.2 x 0.3). No additional echogenic calcification or calculi are seen. No focal parenchymal lesions. No hydronephrosis. RETROPERITONEAL DOPPLER: RIGHT KIDNEY: The peak renal artery velocity proximal segment measures 231 cm/second, midsegment measures 157 cm/second and distal segment measures 150 cm/second. Average resistive index measures 0.82). The RAR is nondiagnostic as the aortic velocity exceeds more than 100 cm/s . Peak aortic velocity measures 112 cm/second. LEFT KIDNEY: The peak renal artery velocity proximal segment measures 277 cm/second, midsegment measures 234 cm/second and distal segment measures 122 cm/second. Average resistive index measures 0.76 . The RAR is nondiagnostic as the aortic velocity exceeds 100 cm/s. Peak aortic velocity measures 112 cm/sec. US/US renal doppler IMPRESSION: Echogenic stone/calcification in upper pole left kidney. No caliectasis or hydronephrosis in either kidney. On renal Doppler imaging the peak systolic velocities in both kidneys are elevated with mild elevation of aortic velocity as well. The Doppler imaging is suspicious for renal artery disease; however, based on numeric Doppler values the exam is inconclusive.
== END 2023-05-02 08:18 | disposition home or self-care (01) ==
LOC: HO.HMGCX 08:17
PROVIDERS: PCP Internal Medicine; Visit Provider Internal Medicine
DX: I10 Essential (primary) hypertension (principal)
CPT/HCPCS: 76775; 93975

== ENCOUNTER 2023-08-13 10:07 | Outpatient (AMB) | payer MEDICARE, SELFPAY ==
[2023-08-13 10:20] VITALS: BP 134/72; PULSE 58; O2SAT 98; BMI 29.7
--- NOTE | 2023-08-13 10:20 | A.OFFPC_ITS ---
Vital Signs 08/13/23 10:20 Height 5 ft 1 in Weight 157 lb BMI 29.7 BP 134/72 Blood Pressure Location Lt brachial Position Sitting Pulse 58 Pulse Source Pulse Oximeter Pulse Oximetry (%) 98 Oxygen Delivery Method Room Air Intake Visit Reasons: Annual Physical Allergies Sulfa (Sulfonamide Antibiotics) Allergy (Severe, Verified 08/13/23 10:20) Anaphylaxis atenolol Adverse Reaction (Intermediate, Verified 08/13/23 10:20) bradycardia Medication List - Last Reconciled 08/13/23 by Jesenia Winkler MD alprazolam 0.25 mg (1/2 x 0.5 mg) PO BEDTIME PRN ascorbate calcium (vitamin C) 500 mg PO DAILY blood pressure monitor (Blood Pressure Kit) As directed cetirizine (All Day Allergy (cetirizine)) 10 mg PO DAILY cholecalciferol (vitamin D3) 25 mcg PO DAILY citalopram 20 mg PO DAILY docusate sodium (Colace) 100 mg PO DAILY lisinopril 10 mg PO DAILY 90 days omeprazole 20 mg PO DAILY potassium citrate ER 10 mEq PO DAILY simvastatin 40 mg PO QPM triamcinolone acetonide 0.5% 1 appl topical BID triamterene-hydrochlorothiazid 75-50 mg 1 tab PO DAILY 90 days zinc gluconate 50 mg PO DAILY Tobacco use date assessed: 11/04/22 Fall risk assessment: No Falls in past year Last assessed Fall Risk: 08/13/23 Dental Screening Dental Screen Date: 08/13/23 Did you have a dental visit in the last 12 months?: Yes Did you have a dental problem in the last 6 months where you did not have access to dental care?: No Was dental information given to patient?: Patient has dentist HPI Annual Physical HPI Details 73-year-old overweight female with a his tory of GERD hypertension hypercholesterolemia and colitis last seen in March 2023. Patient's colonoscopy is due, mammogram due.. Patient had an ultrasound of the kidney April 2023 showing left upper pole stone 2 x 3 mm suspicious for renal artery disease but the test is inconclusive. Patient was seen by the nurse practitioner in on March 2023 for dizziness. Had an ER visit February 2023 for GI bleed [address] scan showing wall thickening of the rectosigmoid. Patient was also seen in February 28 the patient sent will be seeing Dr. Olsen [facility] Surgical History H/O eye surgery H/O rectocele repair Hx of tonsillectomy Family History Father No problems noted. Mother No problems noted. Sister No problems noted. Daughter No problems noted. Daughter No problems noted. Social History (Updated 08/13/23 @ 11:09 by Jesenia Winkler MD) Housing: House Alcohol intake: current Alcohol intake frequency: 0-2 drinks per day Patient Tobacco Use Status: Former Tobacco user Tobacco use type: Cigarette Years Smoked: quit 1984 e-Cigarette/Vaping Use: Never Used Second Hand Smoke Exposure: No service: No Current occupational status: retired Cognitive needs: No Hearing needs: No Vision needs: Yes Questionnaire PHQ-9 Over the last 2 weeks, how often have you been bothered by any of the following problems? 1. Little interest or pleasure in doing things: several days 2. Feeling down, depressed, or hopeless: several days 3. Trouble falling or staying asleep, or sleeping too much: not at all 4. Feeling tired or having little energy: not at all 5. Poor appetite or overeating: not at all 6. Feeling bad about yourself - or that you are a failure or have let yourself or your family down: not at all 7. Trouble concentrating on things, such as reading the newspaper or watching television: not at all 8. Moving or speaking so slowly that other people could have noticed. Or the opposite - being so fidgety or restless that you have been moving around a lot more than usual: not at all 9. Thoughts that you would be better off or of hurting yourself in some way: not at all Total score: 2 Depression Screening Interpretation: Negative Depression Screening Done: Yes Source: Developed by Drs. Gopi Rodríguez, Estefani Diggs, Juancho Rivero and colleagues, with an educational marquis from [employer]. Thrive Questionnaire Date Thrive assessed: 11/04/22 AUDIT C Alcohol Use Questionnaire (AUDIT-C) 1. How often do you have a drink containing alcohol?: 4 or more times a week 2. How many drinks containing alcohol do you have on a typical day when you are drinking?: 1 or 2 3. How often do you have six or more drinks on one occasion?: Never Total Score: 4 WILLY-7 AMB Questionnaire WILLY-7 Date WILLY - 7 assessed: 04/28/23 Source: Developed by Drs. Gopi Rodríguez, Estefani Diggs, Juancho Rivero and colleagues, with an educational marquis from [employer]. Review of Systems Const Denies poor appetite and Denies weakness Eyes Denies no additional complaints ENT Reports Normal hearing present, Denies dizziness, Denies nasal congestion, Denies tinnitus and Denies sore throat Card Denies chest pain, Denies syncope, Denies rapid heart rate and Denies dyspnea Resp Denies cough and Denies dyspnea GI Denies change in stool character, Reports constipation, Denies diarrhea, Denies nausea and Denies vomiting Denies urinary frequency, Denies difficulty voiding and Denies dysuria Neuro Reports Normal hearing present, Denies confusion, Denies dizziness, Denies syncope and Denies weakness Psych Denies confusion Physical exam (Primary Care) Vital Signs: Last Vital Signs Pulse 58 08/13/23 10:20 BP 134/72 08/13/23 10:20 Pulse Ox 98 08/13/23 10:20 Oxygen Delivery Method Room Air 08/13/23 10:20 BMI result Body Mass Index 29.7 Tobacco/Smoking Status: Tobacco use Status Tobacco use date assessed 11/04/22 08/13/23 10:28 Patient Tobacco Use Status Former Tobacco user 08/13/23 10:28 Tobacco use type Cigarette 08/13/23 10:28 e-Cigarette/Vaping Use Never Used 08/13/23 10:28 PHQ-9: PHQ-9 Score PHQ-9: Total score 2 08/13/23 10:28 Depression Screening Interpretation: Negative Thrive Assessment: Date of Thrive Assessment Date Thrive assessed 11/04/22 08/13/23 10:28 Const General: alert and awake; No confusion Orientation/consciousness: No confusion HENMT Head: Yes normocephalic Ears: external ears normal and TM's normal bilaterally Face and sinus: Yes normal facial exam Mouth: moist mucous membranes Throat: Yes tonsils normal Eyes Conjunctivae: conjunctivae normal Pupils: Equal, round and reactive pupils present and Pupil accommodation reflex normal Direct Ophthalmoscopy: normal light reflex Neck Neck: No lymphadenopathy Thyroid: Thyroid normal Chest Chest palpation & inspection: normal inspection of the chest Resp Effort & Inspection: normal respiratory effort and no audible wheezes Auscultation: clear to auscultation bilaterally, no crackles, no wheezes and lung sounds not diminished Cardio Rate: regular rate Rhythm: regular rhythm Peripheral pulses: radial pulses present and dorsalis pedis present GI Palpation (GI): no masses Auscultation: normal bowel sounds and normoactive bowel sounds Rectal Exam - Female: deferred Skin General skin exam: no rashes or lesions noted Rashes: no rashes Neuro General: deep tendon reflexes 2+ bilaterally and No confusion Cranial nerves: Yes Equal, round and reactive pupils present, Yes Midline tongue present, Yes Normal hearing present and Yes Ability to bilaterally elevate shoulders present Cognition (Neuro): normal cognition Gait exam (Neuro): Normal gait present Motor exam (neuro): 5/5 motor strength present throughout Deep tendon reflexes (DTR's): Right brachioradialis reflex intensity grade: 2+, Left brachioradialis reflex intensity grade: 2+, Right patellar reflex intensity grade: 2+ and Left patellar reflex intensity grade: 2+ Extrem General: No edema Assessment and Plan Assessment & Plan (1) Annual physical exam: Code(s): Z00.00 - Encounter for general adult medical examination without abnormal findings (2) Hypertension: Code(s): I10 - Essential (primary) hypertension Plan: Continue with blood pressure medication. Decrease salt intake and exercise patient on lisinopril 10 mg once a day and triamterene hydrochlorothiazide (3) Hypercholesterolemia: Code(s): E78.00 - Pure hypercholesterolemia, unspecified Plan: Avoid fried foods, chicken skin, eggs, butter margarine, pastries and meat. Be it pork or beef they have a lot of cholesterol patient takes simvastatin 40 mg once a day LDL goal of less than 130 and triglyceride of less than 150 february 18 blood work LDL 170 will have to retest (4) Generalized anxiety disorder: Comment: decline counselling Code(s): F41.1 - Generalized anxiety disorder Plan: Continue with citalopram and alprazolam as needed (5) Hypothyroidism: Code(s): E03.9 - Hypothyroidism, unspecified Plan: Continue to monitor (6) GERD (gastroesophageal reflux disease): Code(s): K21.9 - Gastro-esophageal reflux disease without esophagitis Plan: Avoid the foods that causes that usually spicy foods, tomato products, juices, coffee, soda and foods that your sensitive to. After eating do not lie down, allow 3-4 hours before in lie down. And keep the head of bed above 30 degrees to avoid the acid from going up. (7) Colon cancer screening: Code(s): Z12.11 - Encounter for screening for malignant neoplasm of colon Plan: Reminded about colon test (8) Breast cancer screening by mammogram: Code(s): Z12.31 - Encounter for screening mammogram for malignant neoplasm of breast Plan: Reminded about mammogram but would like to hold off (9) Hearing difficulty: Code(s): H91.90 - Unspecified hearing loss, unspecified ear Plan: Hearing test requested (10) Renal calculi: Comment: Left upper pole April 2023 2 mm Code(s): N20.0 - Calculus of kidney Plan: Increase oral fluid Orders: Orders Comprehensive Met. Panel Today E78.00 - Pure hypercholesterolemia, unspecified Lipid Panel Today E78.00 - Pure hypercholesterolemia, unspecified Thyroid Stimulating Hormone Today E78.00 - Pure hypercholesterolemia, unspecified Free T4 (Free Thyroxine) Today E78.00 - Pure hypercholesterolemia, unspecified Complete Blood Count Auto Diff Today E78.00 - Pure hypercholesterolemia, unspecified Vitamin B12 and Folate Today E78.00 - Pure hypercholesterolemia, unspecified Vitamin D 25-OH Total Today E78.00 - Pure hypercholesterolemia, unspecified Referrals Speech and Hearing Referral H91.90 - Unspecified hearing loss, unspecified ear Coding Level of Care Code Est Pt Prev Care >65y(68546) Diagnoses Annual physical exam Z00.00 Hypertension I10 Hypercholesterolemia E78.00 Generalized anxiety disorder F41.1 Hypothyroidism E03.9 GERD (gastroesophageal reflux disease) K21.9 Colon cancer screening Z12.11 Breast cancer screening by mammogram Z12.31 Hearing difficulty H91.90 Renal calculi N20.0
== END 2023-08-13 11:33 | disposition home or self-care (01) ==
PROVIDERS: Visit Provider Internal Medicine
DX: Z00.00 Encounter for general adult medical examination without abnormal findings (principal); I10 Essential (primary) hypertension; E78.00 Pure hypercholesterolemia, unspecified; F41.1 Generalized anxiety disorder; E03.9 Hypothyroidism, unspecified; K21.9 Gastro-esophageal reflux disease without esophagitis; Z12.11 Encounter for screening for malignant neoplasm of colon; Z12.31 Encounter for screening mammogram for malignant neoplasm of breast; H91.90 Unspecified hearing loss, unspecified ear; N20.0 Calculus of kidney
CPT/HCPCS: 99397

== ENCOUNTER 2024-02-07 07:09 | Outpatient (REF) | payer MEDICARE, SELFPAY ==
[2024-02-07 11:08] LABS: MANUAL DIFF FLAG NO
[2024-02-07 11:12] LABS: Basophils Percent Auto 0.4 % (0-2); Eosinophils Absolute Auto 0.1 X10*3/uL (0.0-0.4); Eosinophils Percent Auto 1.5 % (0-4); Hematocrit 40.2 % (37.0-47.0); Hemoglobin 13.3 g/dl (12.0-16.0); Imm Gran Abs Auto 0.01 X10*3/uL (0.00-0.03); Imm Gran Pct Auto 0.2 % (0.0-0.4); Lymphocytes Absolute Auto 1.5 X10*3/uL (1.2-4.9); Lymphocytes Percent Auto 28.5 % (20-40); Mean Corpuscular HGB Conc 33.1 g/dl (31.0-35.0); Mean Corpuscular Hemoglobin 30.2 pg (27.0-33.0); Mean Corpuscular Volume 91.2 fL (80.0-98.0); Mean Platelet Volume 10.2 fL (9.4-12.3); Monocytes Absolute Auto 0.6 X10*3/uL (0.1-1.2); Neutrophils Percent Auto 57.4 % (45-73); Platelet Count 287 X10*3/uL (160-400); Red Blood Count 4.41 X10*6/uL (4.20-5.50); Red Cell Distribution Width 12.6 % (11.0-16.0); White Blood Count 5.2 X10*3/uL (4.8-10.8)
[2024-02-07 11:43] LABS: Alanine Aminotransferase 17 U/L (0-31); Albumin Level 4.1 g/dL (3.5-5.0); Alkaline Phosphatase 49 U/L (39-117); Anion Gap 15 (12-20); Aspartate Amino Transferase 22 U/L (5-31); Bilirubin Total 0.4 mg/dL (0.0-1.0); Blood Urea Nitrogen 21 mg/dL (9-16); Calcium 9.6 mg/dL (8.4-10.2); Carbon Dioxide 27 mmol/L (22-29); Chloride 103 mmol/L (96-108); Cholesterol 209 mg/dL (<200); Estimated Glomerular Filt Rate > 60; Glucose Random 104 mg/dL (60-115); HDL Cholesterol 67 mg/dL (>40); LDL Cholesterol Calculated 123 mg/dL (<100); Sodium 141 mmol/L (135-145); Total Protein 7.1 g/dL (6.5-8.0); Triglycerides 99 mg/dL (<150)
[2024-02-07 12:00] LABS: Folate 5.9 ng/mL (> or = 4.0); Vitamin B12 281 pg/mL (200-900)
[2024-02-07 12:01] LABS: Free T4 (Free Thyroxine) 0.96 ng/dL (0.71-1.85); Thyroid Stimulating Hormone 4.39 uIU/mL (0.32-4.0); Vitamin D 25-OH Total 61.1 ng/mL (>30)
== END 2024-02-07 07:10 | disposition home or self-care (01) ==
LOC: HO.HMGCLDS 07:09
PROVIDERS: PCP Internal Medicine; Visit Provider Internal Medicine
DX: E78.00 Pure hypercholesterolemia, unspecified (principal)
CPT/HCPCS: 36415; 80053; 80061; 82306; 82607; 82746; 84439; 84443; 85025

== ENCOUNTER 2024-02-11 09:45 | Outpatient (AMB) | payer MEDICARE, SELFPAY ==
[2024-02-11 09:46] VITALS: BP 140/86; PULSE 55; O2SAT 99; BMI 29.7
--- NOTE | 2024-02-11 09:47 | MHC.PC.OV ---
Vital Signs 02/11/24 09:46 Height 5 ft 1 in Weight 157 lb BMI 29.7 BP 140/86 H Blood Pressure Location Lt brachial Position Sitting Pulse 55 Pulse Source Pulse Oximeter Pulse Oximetry (%) 99 Oxygen Delivery Method Room Air Intake Visit Reasons: Hypertension Allergies Sulfa (Sulfonamide Antibiotics) Allergy (Severe, Verified 02/11/24 09:47) Anaphylaxis atenolol Adverse Reaction (Intermediate, Verified 02/11/24 09:47) bradycardia Tobacco use date assessed: 02/11/24 Fall risk assessment: No Falls in past year Last assessed Fall Risk: 02/11/24 Dental Screening Dental Screen Date: 02/11/24 Did you have a dental visit in the last 12 months?: Yes Did you have a dental problem in the last 6 months where you did not have access to dental care?: No Was dental information given to patient?: Patient has dentist HPI Hypertension HPI Details 73-year-old overweight female with a history of hypertension hypercholesterolemia hypothyroidism GERD and generalized anxiety disorder last seen in July 2023. Has been reminded about colonoscopy and mammogram. problematic about family stress and discussed medications. Patient declined mammogram in already. As for colonoscopy she has a schedule February 2024. [facility] Surgical History Hx of tonsillectomy H/O eye surgery H/O rectocele repair Family History Father No problems noted. Mother No problems noted. Sister No problems noted. Daughter No problems noted. Daughter No problems noted. Social History (Updated 08/13/23 @ 11:09 by Jesenia Winkler MD) Housing: House Alcohol intake: current Alcohol intake frequency: 0-2 drinks per day Patient Tobacco Use Status: Former Tobacco user Tobacco use type: Cigarette Years Smoked: quit 1984 e-Cigarette/Vaping Use: Never Used Second Hand Smoke Exposure: No service: No Current occupational status: retired Cognitive needs: No Hearing needs: No Vision needs: Yes Questionnaire PHQ-9 Over the last 2 weeks, how often have you been bothered by any of the following problems? 1. Little interest or pleasure in doing things: not at all 2. Feeling down, depressed, or hopeless: not at all 3. Trouble falling or staying asleep, or sleeping too much: not at all 4. Feeling tired or having little energy: not at all 5. Poor appetite or overeating: not at all 6. Feeling bad about yourself - or that you are a failure or have let yourself or your family down: not at all 7. Trouble concentrating on things, such as reading the newspaper or watching television: not at all 8. Moving or speaking so slowly that other people could have noticed. Or the opposite - being so fidgety or restless that you have been moving around a lot more than usual: not at all 9. Thoughts that you would be better off or of hurting yourself in some way: not at all Total score: 0 Depression Screening Interpretation: Negative Depression Screening Done: Yes Source: Developed by Drs. Gopi Rodríguez, Estefani Diggs, Juancho Rivero and colleagues, with an educational marquis from [employer]. Thrive Questionnaire Date Thrive assessed: 02/11/24 I am a: Patient What is your living situation today?: I have a steady place to live Within the past 12 months, did the food you bought not last and you didn't have the money to get more?: Never true Within the past 12 months, did you worry whether your food would run out before you got money to buy more?: Never true Do you have trouble paying for medicines?: No Do you have trouble getting transportation to medical appointments?: No Do you have trouble paying your heating and electricity bill?: No Do you have trouble taking care of your child, family member or friend?: No Do you have trouble with day-to-day activities such as bathing, preparing meals, shopping, managing finances, etc.?: No Are you currently unemployed and looking for a job?: No Are you interested in more education?: No Please select the resources that you would like help with: None THRIVE Score: 0 AUDIT C Alcohol Use Questionnaire (AUDIT-C) 1. How often do you have a drink containing alcohol?: 4 or more times a week 2. How many drinks containing alcohol do you have on a typical day when you are drinking?: 1 or 2 3. How often do you have six or more drinks on one occasion?: Never Total Score: 4 WILLY-7 AMB Questionnaire WILLY-7 Date WILLY - 7 assessed: 02/11/24 Feeling nervous, anxious, or on edge: 1 = Several days Not being able to stop or control worryin = Several days Worrying too much about different things: 2 = More than half the days Trouble relaxin = More than half the days Being so restless that it is hard to sit still: 2 = More than half the days Becoming easily annoyed or irritable: 1 = Several days Feeling afraid as if something awful might happen: 2 = More than half the days Total WILLY-7 score (0-4 normal; 5-9 mild; 10-14 moderate; 15-21 severe): 11 Source: Developed by Drs. Gopi Rodríguez, Estefani Diggs, Juancho Rivero and colleagues, with an educational marquis from [employer]. Physical exam (Primary Care) Vital Signs: Last Vital Signs Pulse 55 02/11/24 09:46 BP 140/86 H 02/11/24 09:46 Pulse Ox 99 02/11/24 09:46 Oxygen Delivery Method Room Air 02/11/24 09:46 BMI result Body Mass Index 29.7 Tobacco/Smoking Status: Tobacco use Status Tobacco use date assessed 02/11/24 02/11/24 09:48 Patient Tobacco Use Status Former Tobacco user 02/11/24 09:48 Tobacco use type Cigarette 02/11/24 09:48 e-Cigarette/Vaping Use Never Used 02/11/24 09:48 PHQ-9: PHQ-9 Score PHQ-9: Total score 0 02/11/24 10:10 Depression Screening Interpretation: Negative Thrive Assessment: Date of Thrive Assessment Date Thrive assessed 02/11/24 02/11/24 09:48 Const General: alert; No acute distress Eyes Conjunctivae: conjunctivae normal Resp Auscultation: clear to auscultation bilaterally Cardio Rate: regular rate Rhythm: regular rhythm GI Inspection: Yes normal to inspection Extrem General: Yes normal to inspection and No edema Assessment and Plan Assessment & Plan (1) Hypertension: Code(s): I10 - Essential (primary) hypertension Plan: Continue with blood pressure medication. Decrease salt intake and exercise presently on lisinopril 10 mg once a day and triamterene hydrochlorothiazide. Patient's blood pressure in the office is elevated and discussed concerns about this advised to get a blood pressure monitor and check the blood pressure . Advised to check and record 2 to 3 times a week and for her to sit down for about 3-5 minutes before checking the blood pressure. (2) Hypercholesterolemia: Code(s): E78.00 - Pure hypercholesterolemia, unspecified Plan: Avoid fried foods, chicken skin, eggs, butter margarine, pastries and meat. Be it pork or beef they have a lot of cholesterol LDL goal of less than 130 and triglyceride of less than 150 on simvastatin 40 mg at bedtime (3) Generalized anxiety disorder: Comment: decline counselling Code(s): F41.1 - Generalized anxiety disorder Plan: Continue with present medication on citalopram 20 mg once a day and alprazolam as needed (4) Colon cancer screening: Code(s): Z12.11 - Encounter for screening for malignant neoplasm of colon Plan: Cologuard testing has and not been done. Will be doing Colonosocpy March 01, 2024 (5) GERD (gastroesophageal reflux disease): Code(s): K21.9 - Gastro-esophageal reflux disease without esophagitis Plan: Avoid the foods that causes that usually spicy foods, tomato products, juices, coffee, soda and foods that your sensitive to. After eating do not lie down, allow 3-4 hours before in lie down. And keep the head of bed above 30 degrees to avoid the acid from going up. On omeprazole 20 mg once a day (6) Mammogram declined: Code(s): Z53.20 - Procedure and treatment not carried out because of patient's decision for unspecified reasons Medications: Changed From citalopram 20 mg PO DAILY 90 tabs 1RF To citalopram 30 mg (1.5 x 20 mg) PO DAILY 90 days 135 tabs 1RF Refilled alprazolam 0.25 mg (1/2 x 0.5 mg) PO BEDTIME PRN 20 tabs 0RF sleep Coding Level of Care Code Est Pt Level 4 (09308) Diagnoses Hypertension I10 Hypercholesterolemia E78.00 Generalized anxiety disorder F41.1 Colon cancer screening Z12.11 GERD (gastroesophageal reflux disease) K21.9 Mammogram declined Z53.20
== END 2024-02-11 10:26 | disposition home or self-care (01) ==
PROVIDERS: PCP Internal Medicine; Visit Provider Internal Medicine
DX: I10 Essential (primary) hypertension (principal); E78.00 Pure hypercholesterolemia, unspecified; F41.1 Generalized anxiety disorder; Z12.11 Encounter for screening for malignant neoplasm of colon; K21.9 Gastro-esophageal reflux disease without esophagitis; Z53.20 Procedure and treatment not carried out because of patient's decision for unspecified reasons
CPT/HCPCS: 99214

== ENCOUNTER 2024-02-12 09:09 | Outpatient (AMB) | payer MEDICARE, SELFPAY ==
[2024-02-12 09:10] VITALS: BP 130/90; PULSE 61; TEMP 36.1; O2SAT 96; BMI 29.9
--- NOTE | 2024-02-12 09:10 | MHC.OFFWIV ---
Intake Vital Signs 02/12/24 09:10 Height 5 ft 1 in Weight 158 lb BMI 29.9 BP 130/90 H Blood Pressure Location Lt brachial Position Sitting Pulse 61 Pulse Source Pulse Oximeter Temp 97.0 F Temp Source Temporal Artery Scan Pulse Oximetry (%) 96 Oxygen Delivery Method Room Air Intake Visit Reasons: EP Infected Toe Intake Note: pt is here today for infected toe started yesterday Patient Tobacco Use Status: Former Tobacco user Allergies Sulfa (Sulfonamide Antibiotics) Allergy (Severe, Verified 02/12/24 09:35) Anaphylaxis atenolol Adverse Reaction (Intermediate, Verified 02/12/24 09:35) bradycardia Do you need a note to return to daycare/school/sports/work: No PFSH Surgical History Hx of tonsillectomy H/O eye surgery H/O rectocele repair Family History Father No problems noted. Mother No problems noted. Sister No problems noted. Daughter No problems noted. Daughter No problems noted. Social History (Updated 08/13/23 @ 11:09 by Jesenia Winkler MD) Housing: House Alcohol intake: current Alcohol intake frequency: 0-2 drinks per day Patient Tobacco Use Status: Former Tobacco user Tobacco use type: Cigarette Years Smoked: quit 1985 e-Cigarette/Vaping Use: Never Used Second Hand Smoke Exposure: No service: No Current occupational status: retired Cognitive needs: No Hearing needs: No Vision needs: Yes Physical Exam Vital Signs: Last Vital Signs Temp 97.0 F 02/12/24 09:10 Pulse 61 02/12/24 09:10 BP 130/90 H 02/12/24 09:10 Pulse Ox 96 02/12/24 09:10 Oxygen Delivery Method Room Air 02/12/24 09:10 BMI result Body Mass Index 29.9 Const General: comfortable and no acute distress Orientation/consciousness: patient oriented x3 Skin Nails: other (Thickened and hard, with painted toes) Neuro General: patient oriented x3, gait normal and moves all extremities Extrem Right lower extremity: foot (Big toe with a large blister at the Tip, redness and tender) Details: normal capillary refill, tenderness Location: of the great toe and toes with normal ROM Left lower extremity: foot Details: normal capillary refill and normal to inspection Psych Speech and movement: Normal speech and movement present Assessment & Plan Assessment & Plan (1) Paronychia of great toe of right foot: Code(s): L03.031 - Cellulitis of right toe Plan: - Take medications as directed - NSAIDs for pain relief - Wrapped the toe with xeroform Medications: New cephalexin 500 mg PO BID 7 days 14 caps 0RF L03.031 - Cellulitis of right toe ibuprofen 600 mg PO Q6H PRN 30 tabs 0RF pain L03.031 - Cellulitis of right toe Coding Level of Care Code Est Pt Level 3 (01388) Diagnoses Paronychia of great toe of right foot L03.031 Time Spent (min) 15
== END 2024-02-12 10:22 | disposition home or self-care (01) ==
PROVIDERS: PCP Internal Medicine; Visit Provider Nurse Practitioner Family
DX: L03.031 Cellulitis of right toe (principal)
CPT/HCPCS: 99213

== ENCOUNTER 2024-03-01 08:13 | Day surgery (SDC) | payer MEDICARE, SELFPAY ==
[2024-03-01 09:02] VITALS: BP 131/60; PULSE 62; RESP 16; TEMP 36.9; O2SAT 99; BMI 30.2
--- NOTE | 2024-03-01 09:31 | HO.ANESPROP2 ---
[facility] Active Problems Active Problems: All Active Problems Mammogram declined (Acute) Renal calculi (Acute) Hearing difficulty (Acute) Colitis (Acute) Colon cancer screening (Acute) GERD (gastroesophageal reflux disease) (Acute) Breast cancer screening by mammogram (Acute) RLS (restless legs syndrome) (Acute) Hypothyroidism (Acute) Annual physical exam (Acute) Eczema (Acute) Constipation (Acute) Generalized anxiety disorder (Acute) Hypercholesterolemia (Acute) Hypertension (Acute) Past Medical History Medical History (Updated 02/27/24 @ 08:16 by Alivia Blanco RN) Anxiety HTN (hypertension) GERD (gastroesophageal reflux disease) Family History Family History Father No problems noted. Mother No problems noted. Sister No problems noted. Daughter No problems noted. Daughter No problems noted. Family history of problems with anesthesia: No Surgical History Surgical History (Updated 02/27/24 @ 08:16 by Alivia Blanco RN) H/O colonoscopy Hx of tonsillectomy H/O eye surgery H/O rectocele repair History of Problems with Anesthesia: No Social History Social History (Updated 08/13/23 @ 11:09 by Jesenia Winkler MD) Housing: House Alcohol intake: current Alcohol intake frequency: 0-2 drinks per day Patient Tobacco Use Status: Former Tobacco user Tobacco use type: Cigarette Years Smoked: quit 1984 e-Cigarette/Vaping Use: Never Used Second Hand Smoke Exposure: No Use of substances other than those prescribed or required for medical reasons: No Are you DNR?: No Advance Directives: No Advance Directives Information Provided: Yes service: No Current occupational status: retired Cognitive needs: No Hearing needs: No Vision needs: Yes Meds Allergies Allergy/AdvReac Type Severity Reaction Status Date / Time Sulfa (Sulfonamide Allergy Severe Anaphylaxis Verified 02/12/24 09:35 Antibiotics) atenolol AdvReac Intermediate bradycardia Verified 02/12/24 09:35 Active Medications: Current Medications Lactated Ringer's (Lr) 1,000 mls @ 80 mls/hr IVCONT .[id number] PREM Sodium Biphosphate/Sodium Phosphate (Sodium Phosphate,Charlotte-Dibasic 133 Ml Enema) 133 ml AK ONCE PRN PRN Reason: Poor Colonoscopy Prep Results Home Medications ?Medication ?Instructions ?Recorded ?Confirmed ?Last Taken ?Type ascorbate calcium (vitamin C) 500 500 mg PO DAILY 05/28/22 08/13/23 Unknown History mg tablet cholecalciferol (vitamin D3) 25 25 mcg PO DAILY 05/28/22 08/13/23 Unknown History mcg (1,000 unit) capsule docusate sodium 100 mg capsule 100 mg PO DAILY 05/28/22 08/13/23 Unknown History (Colace) potassium citrate 10 mEq (1,080 10 meq PO DAILY 05/28/22 08/13/23 Unknown History mg) tablet,extended release zinc gluconate 50 mg tablet 50 mg PO DAILY 08/13/23 08/13/23 Unknown History Exam Height,Weight and Vital Signs: Height 5 ft 1 in Weight 72.393 kg Last Vital Signs Temp 98.4 F 03/01/24 09:02 Pulse 62 03/01/24 09:02 Resp 16 03/01/24 09:02 BP 131/60 03/01/24 09:02 Pulse Ox 99 03/01/24 09:02 O2 Del Method Room Air 03/01/24 09:02 Airway Mallampati Class: III TM Dist: <=3cm Denture: Upper and Lower Loose/Missing/Broken Teeth: No Heart: rrr Lungs: cta Assessment and Plan Assessment Anesthesia Assessment: Anesthesia Plan Discussed and Chart Reviewed Final Anesthetic Review Family History of Problems with Anesthesia: No History of Problems with Anesthesia: No NPO: Yes ASA Class: II Final Preanesthetic Review: No Changes in Pt Med Stat, Meds/Allgs Chart Reviewed, Consent Obtained/Reviewed and Anes Risks/Benef Reviewed Patient Risk: Intermediate Procedure Risk: Intermediate Anesthetic Plan Anesthetic Plan: TIVA Disposition: Standard PACU
[2024-03-01] MEDS: Lactated Ringers 1,000 ML 80 ML IVCONT (09:46)
[2024-03-01 10:31] VITALS: BP 94/40; PULSE 71; RESP 16; TEMP 36.3; O2SAT 97
--- NOTE | 2024-03-01 10:34 | P.BOP_ITS ---
Brief Operative Note Date of Service: 03/01/24 Pre-op diagnosis: Screening Post-op diagnosis: other (Colon polyp) Procedure: Colonoscopy to the cecum with bx/removal of polyp Surgeon: Gopi Zavaleta MD Anesthesia: MAC Was an Packaging Machine Supplies Distributor used for this Procedure?: No Estimated blood loss (mL): 2.0 Pathology: other (A. Cecal polyp) Condition: stable Disposition: PACU
[2024-03-01 10:45] VITALS: BP 119/60; PULSE 57; RESP 16; TEMP 36.5; O2SAT 97
--- NOTE | 2024-03-01 10:51 | OP_ITS ---
DATE OF SERVICE: 03/01/2024 SURGEON: Gopi Zavaleta MD INDICATIONS: The patient presents for evaluation of colorectal cancer screening. Full consent has been obtained from her for this, including risks of bleeding and perforation. PREOPERATIVE DIAGNOSIS: Colorectal cancer screening. POSTOPERATIVE DIAGNOSIS: PROCEDURE PERFORMED: Colonoscopy to the cecum. ESTIMATED BLOOD LOSS: COMPLICATIONS: ANESTHESIA: Monitored anesthesia care. ASSISTANTS: SPECIMENS: POSTOPERATIVE DIAGNOSES: Colorectal cancer screening, small colon polyp, diverticulosis, and internal hemorrhoids. DESCRIPTION OF PROCEDURE: The patient was placed in the left lateral decubitus position. The digital rectal exam revealed external hemorrhoids. The Olympus video pediatric colonoscope was then entered into the rectum and advanced easily to the cecum. Once in the cecum, I did identify normal-appearing cecal pouch other than an approximately 4 mm polyp, which was biopsied and completely removed with the cold biopsy forceps. The remainder of the cecum appeared completely normal including the appendiceal orifice. The scope was slowly withdrawn assessing all mucosal surfaces carefully. Preparation was excellent. I did not visualize any other polyps, colitis, nor angiodysplasia. There was a mild amount of sigmoid diverticulosis. In the rectum, scope was retroflexed, visualizing small internal hemorrhoids, but no other pathology. The rectal mucosa appeared normal. The scope was straightened and withdrawn from the patient. She tolerated the procedure well and was returned to the recovery area in stable condition. IMPRESSION: 1. Small colon polyp. 2. Diverticulosis. 3. Internal and external hemorrhoids. PLAN: The results of the biopsy will be checked. Given this minimal finding and her age, I do not think she would need any further screening colonoscopies even if there is a tubular adenoma. She will see me on a p.r.n. basis. This has been discussed with her . MD MADAY Roy/JENNIFERL / [id number]
[2024-03-01 11:00] VITALS: BP 123/51; PULSE 55; RESP 18; TEMP 36.5; O2SAT 99
== END 2024-03-01 12:13 | disposition home or self-care (01) ==
PROVIDERS: PCP Internal Medicine; Visit Provider Internal Medicine
PROC: 0DJD8ZZ Inspection of Lower Intestinal Tract, Via Natural or Artificial Opening Endoscopic (ICD-10-PCS; CPT 45378; principal; 2024-03-01 09:40)
DX: Z12.11 Encounter for screening for malignant neoplasm of colon (principal); D12.0 Benign neoplasm of cecum; K57.30 Diverticulosis of large intestine without perforation or abscess without bleeding; K64.8 Other hemorrhoids; Z86.010 Personal history of colon polyps; I10 Essential (primary) hypertension; Z79.899 Other long term (current) drug therapy
CPT/HCPCS: 45380; 88305; J2704

== ENCOUNTER 2024-06-29 09:27 | Outpatient (AMB) | payer MEDICARE, SELFPAY ==
[2024-06-29 09:30] VITALS: BP 152/78; PULSE 53; O2SAT 98; BMI 28.5
--- NOTE | 2024-06-29 09:30 | A.OFFPC_ITS ---
Vital Signs 06/29/24 09:30 Height 5 ft 1 in Weight 151 lb BMI 28.5 BP 152/78 H Blood Pressure Location Lt brachial Position Sitting Pulse 53 Pulse Source Pulse Oximeter Pulse Oximetry (%) 98 Oxygen Delivery Method Room Air Intake Visit Reasons: Hypertension Intake Note: Pt reports having anxiety attacks more often lately and overall feeling more anxious on a daily basis. 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 Patient had colonoscopy done in 03/18/2024 having tubular adenoma. Patient has declined mammogram. [facility] Medical History (Updated 06/29/24 @ 09:57 by Jesenia Winkler MD) Colon cancer screening Anxiety HTN (hypertension) GERD (gastroesophageal reflux disease) Surgical History (Updated 02/27/24 @ 08:16 by Alivia Blanco RN) H/O colonoscopy Hx of tonsillectomy H/O eye surgery H/O rectocele repair Family History Father No problems noted. Mother No problems noted. Sister No problems noted. Daughter No problems noted. Daughter No problems noted. Social History (Updated 08/13/23 @ 11:09 by Jesenia Winkler MD) Housing: House Alcohol intake: current Alcohol intake frequency: 0-2 drinks per day Patient Tobacco Use Status: Former Tobacco user Tobacco use type: Cigarette Years Smoked: quit 1984 e-Cigarette/Vaping Use: Never Used Second Hand Smoke Exposure: No service: No Current occupational status: retired Cognitive needs: No Hearing needs: No Vision needs: Yes Questionnaire PHQ-9 Over the last 2 weeks, how often have you been bothered by any of the following problems? 1. Little interest or pleasure in doing things: not at all 2. Feeling down, depressed, or hopeless: not at all 3. Trouble falling or staying asleep, or sleeping too much: not at all 4. Feeling tired or having little energy: not at all 5. Poor appetite or overeating: not at all 6. Feeling bad about yourself - or that you are a failure or have let yourself or your family down: not at all 7. Trouble concentrating on things, such as reading the newspaper or watching television: not at all 8. Moving or speaking so slowly that other people could have noticed. Or the opposite - being so fidgety or restless that you have been moving around a lot more than usual: not at all 9. Thoughts that you would be better off or of hurting yourself in some way: not at all Total score: 0 Depression Screening Interpretation: Negative Depression Screening Done: Yes Source: Developed by Drs. Gopi Rodríguez, Estefani Diggs, Juancho Rivero and colleagues, with an educational marquis from [employer]. Thrive Questionnaire Date Thrive assessed: 02/11/24 Are you currently unemployed and looking for a job?: No AUDIT C Alcohol Use Questionnaire (AUDIT-C) 1. How often do you have a drink containing alcohol?: 4 or more times a week 2. How many drinks containing alcohol do you have on a typical day when you are drinking?: 1 or 2 3. How often do you have six or more drinks on one occasion?: Never Total Score: 4 WILLY-7 AMB Questionnaire WILLY-7 Date WILLY - 7 assessed: 02/11/24 Source: Developed by Drs. Gopi Rodríguez, Estefani Diggs, Juancho Rivero and colleagues, with an educational marquis from [employer]. Physical exam (Primary Care) Vital Signs: Last Vital Signs Pulse 53 06/29/24 09:30 BP 152/78 H 06/29/24 09:30 Pulse Ox 98 06/29/24 09:30 Oxygen Delivery Method Room Air 06/29/24 09:30 BMI result Body Mass Index 28.5 Tobacco/Smoking Status: Tobacco use Status Tobacco use date assessed 02/11/24 06/29/24 09:36 Patient Tobacco Use Status Former Tobacco user 06/29/24 09:36 Tobacco use type Cigarette 06/29/24 09:36 e-Cigarette/Vaping Use Never Used 06/29/24 09:36 PHQ-9: PHQ-9 Score PHQ-9: Total score 0 06/29/24 09:37 Depression Screening Interpretation: Negative Thrive Assessment: Date of Thrive Assessment Date Thrive assessed 02/11/24 06/29/24 09:36 Const General: alert; No acute distress Eyes Conjunctivae: conjunctivae normal Resp Auscultation: clear to auscultation bilaterally Cardio Rate: regular rate Rhythm: regular rhythm GI Inspection: Yes normal to inspection Extrem General: Yes normal to inspection and No edema Coding Level of Care Code Est Pt Level 4 (91745) Diagnoses Hypertension I10 Hypercholesterolemia E78.00 Hypothyroidism E03.9 Generalized anxiety disorder F41.1 GERD (gastroesophageal reflux disease) K21.9 Tubular adenoma of colon D12.6 Assessment & Plan Assessment & Plan (1) Hypertension: Code(s): I10 - Essential (primary) hypertension Category: Medical Plan: Continue with blood pressure medication. Decrease salt intake and exercise on lisinopril 10 mg once a day triamterene hydrochlorothiazide 75/50 mg once a day (2) Hypercholesterolemia: Code(s): E78.00 - Pure hypercholesterolemia, unspecified Category: Medical Plan: Avoid fried foods, chicken skin, eggs, butter margarine, pastries and meat. Be it pork or beef they have a lot of cholesterol on simvastatin 40 mg once a day LDL goal of less than 130 and triglyceride of less than 150 (3) Hypothyroidism: Code(s): E03.9 - Hypothyroidism, unspecified Category: Medical Plan: Will need follow-up on the thyroid test (4) Generalized anxiety disorder: Comment: decline counselling Code(s): F41.1 - Generalized anxiety disorder Category: Medical Plan: Continue with present medication as needed (5) GERD (gastroesophageal reflux disease): Code(s): K21.9 - Gastro-esophageal reflux disease without esophagitis Category: Medical Plan: Avoid the foods that causes that usually spicy foods, tomato products, juices, coffee, soda and foods that your sensitive to. After eating do not lie down, allow 3-4 hours before in lie down. And keep the head of bed above 30 degrees to avoid the acid from going up. (6) Tubular adenoma of colon: Comment: February 2024 Code(s): D12.6 - Benign neoplasm of colon, unspecified Category: Medical Plan: No need for further colonoscopy Orders: Orders Complete Blood Count Auto Diff 2 Months E78.00 - Pure hypercholesterolemia, unspecified Free T4 (Free Thyroxine) 2 Months E78.00 - Pure hypercholesterolemia, unspecified Thyroid Stimulating Hormone 2 Months E78.00 - Pure hypercholesterolemia, unspecified Vitamin B12 and Folate 2 Months E78.00 - Pure hypercholesterolemia, unspecified Comprehensive Met. Panel 2 Months E78.00 - Pure hypercholesterolemia, unspecified Lipid Panel 2 Months E78. - Pure hypercholesterolemia, unspecified Hemoglobin A1c 2 Months E78.00 - Pure hypercholesterolemia, unspecified Referrals Psychiatry Outpatient Consultation Service F41.1 - Generalized anxiety disorder Medications: New pantoprazole 40 mg PO DAILY 90 tabs 0RF K21.9 - Gastro-esophageal reflux disease without esophagitis Changed From citalopram 30 mg (1.5 x 20 mg) PO DAILY 90 days 135 tabs 1RF To citalopram 40 mg PO DAILY 90 days 90 tabs 1RF From alprazolam 0.25 mg (1/2 x 0.5 mg) PO BEDTIME PRN 20 tabs 0RF sleep F41.1 - Generalized anxiety disorder To alprazolam 0.5 mg PO BEDTIME PRN 30 tabs 0RF sleep F41.1 - Generalized a nxiety disorder Refilled citalopram 40 mg PO DAILY 90 days 90 tabs 1RF F41.1 - Generalized anxiety disorder Discontinued cephalexin Discontinued Reason: Doctor's Order 500 mg PO BID 7 days 14 caps 0RF L03.031 - Cellulitis of right toe
== END 2024-06-29 10:17 | disposition home or self-care (01) ==
PROVIDERS: PCP Internal Medicine; Visit Provider Internal Medicine
DX: I10 Essential (primary) hypertension (principal); E78.00 Pure hypercholesterolemia, unspecified; E03.9 Hypothyroidism, unspecified; F41.1 Generalized anxiety disorder; K21.9 Gastro-esophageal reflux disease without esophagitis; D12.6 Benign neoplasm of colon, unspecified

== ENCOUNTER → 2024-06-29 09:27 | Outpatient (BNVA) | payer MEDICARE, SELFPAY | PROVIDERS: PCP Internal Medicine; Visit Provider Internal Medicine | DX: I10 Essential (primary) hypertension (principal); F41.1 Generalized anxiety disorder; K21.9 Gastro-esophageal reflux disease without esophagitis; L03.031 Cellulitis of right toe | CPT/HCPCS: 99212 ==

== ENCOUNTER 2024-08-14 09:12 | Outpatient (REF) | payer MEDICARE, SELFPAY ==
[2024-08-14 11:12] LABS: MANUAL DIFF FLAG NO
[2024-08-14 11:28] LABS: Basophils Percent Auto 0.6 % (0-2); Eosinophils Absolute Auto 0.1 X10*3/uL (0.0-0.4); Eosinophils Percent Auto 2.5 % (0-4); Hematocrit 40.8 % (37.0-47.0); Hemoglobin 13.6 g/dl (12.0-16.0); Imm Gran Abs Auto 0.01 X10*3/uL (0.00-0.03); Imm Gran Pct Auto 0.2 % (0.0-0.4); Lymphocytes Absolute Auto 1.7 X10*3/uL (1.2-4.9); Lymphocytes Percent Auto 35.4 % (20-40); Mean Corpuscular HGB Conc 33.3 g/dl (31.0-35.0); Mean Corpuscular Hemoglobin 30.3 pg (27.0-33.0); Mean Corpuscular Volume 90.9 fL (80.0-98.0); Mean Platelet Volume 10.1 fL (9.4-12.3); Monocytes Absolute Auto 0.5 X10*3/uL (0.1-1.2); Monocytes Percent Auto 10.8 % (2-11); Neutrophils Absolute Auto 2.4 x10*3/uL (2.0-8.3); Neutrophils Percent Auto 50.5 % (45-73); Platelet Count 254 X10*3/uL (160-400); Red Blood Count 4.49 X10*6/uL (4.20-5.50); Red Cell Distribution Width 12.3 % (11.0-16.0); White Blood Count 4.7 X10*3/uL (4.8-10.8)
[2024-08-14 11:33] LABS: Estimated Average Glucose 114 mg/dL; Hemoglobin A1C 133.3462 umol/L; Hemoglobin A1c % 5.6 % (<6.0); Total Hemoglobin (HGBA1C) 3557.4049 umol/L
[2024-08-14 12:18] LABS: Folate 8.6 ng/mL (> or = 4.0); Vitamin B12 727 pg/mL (200-900)
[2024-08-14 12:19] LABS: Alanine Aminotransferase 24 U/L (0-31); Albumin Level 4.3 g/dL (3.5-5.0); Alkaline Phosphatase 55 U/L (39-117); Anion Gap 11 (12-20); Aspartate Amino Transferase 24 U/L (5-31); Bilirubin Total 0.4 mg/dL (0.0-1.0); Blood Urea Nitrogen 19 mg/dL (9-16); Calcium 9.5 mg/dL (8.4-10.2); Carbon Dioxide 29 mmol/L (22-29); Chloride 103 mmol/L (96-108); Cholesterol 213 mg/dL (<200); Estimated Glomerular Filt Rate > 60; Free T4 (Free Thyroxine) 0.85 ng/dL (0.71-1.85); Glucose Random 101 mg/dL (60-115); HDL Cholesterol 62 mg/dL (>40); LDL Cholesterol Calculated 118 mg/dL (<100); Potassium 4.1 mmol/L (3.3-5.1); Sodium 138 mmol/L (135-145); Thyroid Stimulating Hormone 2.84 uIU/mL (0.32-4.0); Total Protein 7.2 g/dL (6.5-8.0); Triglycerides 166 mg/dL (<150)
== END 2024-08-14 09:13 | disposition home or self-care (01) ==
LOC: HO.HMGCLDS 09:12
PROVIDERS: PCP Internal Medicine; Visit Provider Internal Medicine
DX: E78.00 Pure hypercholesterolemia, unspecified (principal); Z13.1 Encounter for screening for diabetes mellitus
CPT/HCPCS: 36415; 80053; 80061; 82607; 82746; 83036; 84439; 84443; 85025

== ENCOUNTER 2024-08-19 08:52 | Outpatient (AMB) | payer MEDICARE, SELFPAY ==
--- NOTE | 2024-08-19 09:09 | MHC.PC.OV ---
Vital Signs 08/19/24 09:10 Height 5 ft 1 in Weight 152 lb BMI 28.7 BP 138/68 Blood Pressure Location Lt brachial Position Sitting Pulse 74 Pulse Source Pulse Oximeter Pulse Oximetry (%) 97 Oxygen Delivery Method Room Air Intake Visit Reasons: Annual Exam Allergies Sulfa (Sulfonamide Antibiotics) Allergy (Severe, Verified 08/19/24 09:10) Anaphylaxis atenolol Adverse Reaction (Intermediate, Verified 08/19/24 09:10) bradycardia pantoprazole Adverse Reaction (Intermediate, Verified 08/19/24 09:10) Diarrhea Medication List - Last Reconciled 08/19/24 by Jesenia Winkler MD alprazolam 0.5 mg PO BEDTIME PRN ascorbate calcium (vitamin C) 500 mg PO DAILY blood pressure monitor (Blood Pressure Kit) As directed cetirizine (All Day Allergy (cetirizine)) 10 mg PO DAILY cholecalciferol (vitamin D3) 25 mcg PO DAILY citalopram 40 mg PO DAILY 90 days famotidine (Pepcid) 40 mg PO BEDTIME lisinopril 10 mg PO DAILY 90 days polydextrose (Childrens Fiber Gummy Bear) grams PO simvastatin 40 mg PO QPM triamcinolone acetonide 0.5% 1 appl topical BID triamterene-hydrochlorothiazid 75-50 mg 1 tab PO DAILY 90 days zinc gluconate 50 mg PO DAILY [zinc magnesium and calcium PO .QD] Tobacco use date assessed: 02/11/24 Fall risk assessment: No Falls in past year Last assessed Fall Risk: 08/19/24 Dental Screening Dental Screen Date: 02/11/24 HPI Annual Exam HPI Details 74-year-old overweight female with a history of hypertension hypercholesterolemia generalized anxiety disorder hypothyroidism and GERD last seen [facility] Medical History (Updated 08/19/24 @ 09:48 by Jesenia Winkler MD) Colon cancer screening Anxiety HTN (hypertension) GERD (gastroesophageal reflux disease) Surgical History (Updated 02/27/24 @ 08:16 by Alivia Blanco RN) H/O colonoscopy Hx of tonsillectomy H/O eye surgery H/O rectocele repair Family History Father No problems noted. Mother No problems noted. Sister No problems noted. Daughter No problems noted. Daughter No problems noted. Social History (Updated 08/19/24 @ 09:34 by Jesenia Winkler MD) Housing: House Alcohol intake: current Alcohol intake frequency: 0-2 drinks per day Comment: Q day glass of wine Patient Tobacco Use Status: Former Tobacco user Tobacco use type: Cigarette Years Smoked: quit 1984 e-Cigarette/Vaping Use: Never Used Second Hand Smoke Exposure: No service: No Current occupational status: retired Cognitive needs: No Hearing needs: No Vision needs: Yes Questionnaire PHQ-9 Over the last 2 weeks, how often have you been bothered by any of the following problems? 1. Little interest or pleasure in doing things: not at all 2. Feeling down, depressed, or hopeless: not at all 3. Trouble falling or staying asleep, or sleeping too much: not at all 4. Feeling tired or having little energy: not at all 5. Poor appetite or overeating: not at all 6. Feeling bad about yourself - or that you are a failure or have let yourself or your family down: not at all 7. Trouble concentrating on things, such as reading the newspaper or watching television: not at all 8. Moving or speaking so slowly that other people could have noticed. Or the opposite - being so fidgety or restless that you have been moving around a lot more than usual: not at all 9. Thoughts that you would be better off or of hurting yourself in some way: not at all Total score: 0 Source: Developed by Drs. Gopi Rodríguez, Estefani Diggs, Juancho Rivero and colleagues, with an educational marquis from [employer]. Thrive Questionnaire Date Thrive assessed: 02/11/24 I am a: Patient What is your living situation today?: I have a steady place to live Within the past 12 months, did the food you bought not last and you didn't have the money to get more?: Never true Within the past 12 months, did you worry whether your food would run out before you got money to buy more?: Never true Do you have trouble paying for medicines?: No Do you have trouble getting transportation to medical appointments?: No Do you have trouble paying your heating and electricity bill?: No Do you have trouble taking care of your child, family member or friend?: No Do you have trouble with day-to-day activities such as bathing, preparing meals, shopping, managing finances, etc.?: No Are you interested in more education?: Yes Please select the resources that you would like help with: None Currently or been in a relationship where the following occur: No concerns reported THRIVE Score: 0 AUDIT C Alcohol Use Questionnaire (AUDIT-C) 1. How often do you have a drink containing alcohol?: 2-3 times a week 2. How many drinks containing alcohol do you have on a typical day when you are drinking?: 1 or 2 3. How often do you have six or more drinks on one occasion?: Less than monthly Total Score: 4 WILLY-7 AMB Questionnaire WILLY-7 Date WILLY - 7 assessed: 02/11/24 Feeling nervous, anxious, or on edge: 0 = Not at all Not being able to stop or control worryin = Not at all Worrying too much about different things: 0 = Not at all Trouble relaxin = Not at all Being so restless that it is hard to sit still: 0 = Not at all Becoming easily annoyed or irritable: 0 = Not at all Feeling afraid as if something awful might happen: 0 = Not at all Total WILLY-7 score (0-4 normal; 5-9 mild; 10-14 moderate; 15-21 severe): 0 Source: Developed by Drs. Gopi Rodríguez, Estefani Diggs, Juancho Rivero and colleagues, with an educational marquis from [employer]. Review of Systems Const Denies poor appetite and Denies weakness Eyes Denies no additional complaints ENT Reports Normal hearing present, Denies dizziness, Denies nasal congestion, Denies tinnitus and Denies sore throat Card Denies chest pain, Denies syncope, Denies rapid heart rate and Denies dyspnea Resp Denies cough and Denies dyspnea GI Denies change in stool character, Reports constipation, Denies diarrhea, Denies nausea and Denies vomiting Denies urinary frequency, Denies difficulty voiding and Denies dysuria Neuro Reports Normal hearing present, Denies confusion, Denies dizziness, Denies syncope and Denies weakness Psych Denies confusion Physical exam (Primary Care) Vital Signs: Last Vital Signs Pulse 74 08/19/24 09:10 BP 138/68 08/19/24 09:10 Pulse Ox 97 08/19/24 09:10 Oxygen Delivery Method Room Air 08/19/24 09:10 BMI result Body Mass Index 28.7 Tobacco/Smoking Status: Tobacco use Status Tobacco use date assessed 02/11/24 08/19/24 09:15 Patient Tobacco Use Status Former Tobacco user 08/19/24 09:34 Tobacco use type Cigarette 08/19/24 09:34 e-Cigarette/Vaping Use Never Used 08/19/24 09:34 PHQ-9: PHQ-9 Score PHQ-9: Total score 0 08/19/24 09:27 Thrive Assessment: Date of Thrive Assessment Date Thrive assessed 02/11/24 08/19/24 09:15 Currently or been in a relationship where the following occur: No concerns reported Const General: No confusion Orientation/consciousness: No confusion HENMT Head: Yes normocephalic Ears: external ears normal and TM's normal bilaterally Face and sinus: Yes normal facial exam Mouth: moist mucous membranes Throat: Yes tonsils normal Eyes Conjunctivae: conjunctivae normal Pupils: Equal, round and reactive pupils present and Pupil accommodation reflex normal Direct Ophthalmoscopy: normal light reflex Neck Neck: No lymphadenopathy Thyroid: Thyroid normal Chest Chest palpation & inspection: normal inspection of the chest Resp Effort & Inspection: normal respiratory effort and no audible wheezes Auscultation: clear to auscultation bilaterally, no crackles, no wheezes and lung sounds not diminished Cardio Rate: regular rate Rhythm: regular rhythm Peripheral pulses: radial pulses present and dorsalis pedis present GI Palpation (GI): no masses Auscultation: normal bowel sounds and normoactive bowel sounds Rectal Exam - Female: deferred Skin General skin exam: no rashes or lesions noted Rashes: no rashes Neuro General: No confusion Cranial nerves: Yes Equal, round and reactive pupils present and Yes Normal hearing present Cognition (Neuro): normal cognition Gait exam (Neuro): Normal gait present Motor exam (neuro): 5/5 motor strength present throughout Deep tendon reflexes (DTR's): Right brachioradialis reflex intensity grade: 2+, Left brachioradialis reflex intensity grade: 2+, Right patellar reflex intensity grade: 2+ and Left patellar reflex intensity grade: 2+ Extrem General: No edema Office Procedures Flu Questionnaire Does the patient have a severe egg allergy?: No Does the patient have severe life threatening allergies?: No Does the patient have a fever or illness today?: No Has the patient ever had Guillain-[place] Varina Syndrome?: No Has the patient ever had any past reaction to a flu shot?: No Immunizations Fluarix Triv 9031-6735 (PF) 45 mcg (15 mcg x 3)/0.5 mL IM syringe Performing Provider: Jesenia Winkler MD [facility] [facility] [facility] [place] [facility] Administered by: Ana Ardon CMA on 08/19/24 09:17 Dose Route Admin Location Dispensed Lot Number Expiration Date NDC [place] 0.5 mL IM Right Deltoid 0.5 mL [id number] 03/28/25 [id number] [employer] VIS Given Date VIS Provided VIS Publication Date 08/19/24 Single Vaccine 21 Eligibility Eligibility Date Funding Source Not [facility] Eligible 08/19/24 Private Coding Level of Care Code Est Pt Prev Care >65y(67318) Diagnoses Annual physical exam Z00.00 Primary hypertension I10 Hypertension type: primary hypertension Hypercholesterolemia E78.00 Generalized anxiety disorder F41.1 Acquired hypothyroidism E03.9 Hypothyroidism type: acquired Gastroesophageal reflux disease without esophagitis K21.9 Esophagitis presence: without esophagitis Osteopenia of multiple sites M85.89 Osteopenia location: multiple sites Hearing difficulty, unspecified laterality H91.90 Laterality: unspecified laterality Assessment & Plan Assessment & Plan (1) Annual physical exam: Code(s): Z00.00 - Encounter for general adult medical examination without abnormal findings Category: Medical Plan: Patient is advised to eat healthy, keep well hydrated, keep active and have adequate sleep. (2) Hypertension: Code(s): I10 - Essential (primary) hypertension Category: Medical Qualifiers: Hypertension type: primary hypertension Qualified Code(s): I10 - Essential (primary) hypertension Plan: Continue with blood pressure medication. Decrease salt intake and exercise patient is on triamterene hydrochlorothiazide and lisinopril (3) Hypercholesterolemia: Code(s): E78.00 - Pure hypercholesterolemia, unspecified Category: Medical Plan: Avoid fried foods, chicken skin, eggs, butter margarine, pastries and meat. Be it pork or beef they have a lot of cholesterol LDL goal of less than 130 and triglyceride of less than 150 on simvastatin 40 mg once a day (4) Generalized anxiety disorder: Comment: decline counselling Code(s): F41.1 - Generalized anxiety disorder Category: Medical Plan: Continue with present medication (5) Hypothyroidism: Code(s): E03.9 - Hypothyroidism, unspecified Category: Medical Qualifiers: Hypothyroidism type: acquired Qualified Code(s): E03.9 - Hypothyroidism, unspecified Plan: Continue with thyroid medication (6) GERD (gastroesophageal reflux disease): Code(s): K21.9 - Gastro-esophageal reflux disease without esophagitis Category: Medical Qualifiers: Esophagitis presence: without esophagitis Qualified Code(s): K21.9 - Gastro-esophageal reflux disease without esophagitis Plan: Avoid the foods that causes that usually spicy foods, tomato products, juices, coffee, soda and foods that your sensitive to. After eating do not lie down, allow 3-4 hours before in lie down. And keep the head of bed above 30 degrees to avoid the acid from going up. (7) Osteopenia: Comment: 2021 Code(s): M85.80 - Other specified disorders of bone density and structure, unspecified site Category: Medical Qualifiers: Osteopenia location: multiple sites Qualified Code(s): M85.89 - Other specified disorders of bone density and structure, multiple sites Plan: Discussed about bone density. Calcium vitamin-D continue (8) Hearing difficulty: Code(s): H91.90 - Unspecified hearing loss, unspecified ear Category: Medical Qualifiers: Laterality: unspecified laterality Qualified Code(s): H91.90 - Unspecified hearing loss, unspecified ear Plan: hearing test advised Orders: Orders Influenza [id number] Immunization Today Z23 - Encounter for immunization XR DEXA axial skeleton Today M81.0 - Age-related osteoporosis without current pathological fracture, M85.80 - Other specified disorders of bone density and structure, unspecified site Referrals Speech and Hearing Referral H91.90 - Unspecified hearing loss, unspecified ear
[2024-08-19 09:10] VITALS: BP 138/68; PULSE 74; O2SAT 97; BMI 28.7
== END 2024-08-19 09:52 | disposition home or self-care (01) ==
PROVIDERS: PCP Internal Medicine; Visit Provider Internal Medicine
DX: Z00.00 Encounter for general adult medical examination without abnormal findings (principal); I10 Essential (primary) hypertension; E78.00 Pure hypercholesterolemia, unspecified; F41.1 Generalized anxiety disorder; E03.9 Hypothyroidism, unspecified; K21.9 Gastro-esophageal reflux disease without esophagitis; M85.89 Other specified disorders of bone density and structure, multiple sites; H91.90 Unspecified hearing loss, unspecified ear; Z23 Encounter for immunization

== ENCOUNTER → 2024-08-19 08:52 | Outpatient (BNVA) | payer MEDICARE, SELFPAY | PROVIDERS: PCP Internal Medicine; Visit Provider Internal Medicine | DX: Z00.00 Encounter for general adult medical examination without abnormal findings (principal); Z23 Encounter for immunization; I10 Essential (primary) hypertension; E78.00 Pure hypercholesterolemia, unspecified; F41.1 Generalized anxiety disorder; E03.9 Hypothyroidism, unspecified; K21.9 Gastro-esophageal reflux disease without esophagitis; M85.89 Other specified disorders of bone density and structure, multiple sites; H91.90 Unspecified hearing loss, unspecified ear | CPT/HCPCS: 90471; 90656; 96127; 99397 ==

== ENCOUNTER 2024-09-14 14:27 | Outpatient (AMB) | payer MEDICARE, SELFPAY ==
--- OUTSIDE RECORDS SUMMARY | 2024-09-14 14:29 | XMS_ITS ---
Author Organization [facility] Address [address] [place] [address] Care Team Providers Care Slubber Tender Name Role Phone Po Jesenia JACKSON Primary Care Provider Gopi Nolan [phone] REASON FOR VISIT recall colonoscopy Encounters Encounter Location Date Provider Diagnosis [facility] [address] [place] [address] 08/08/2023 Gopi Zavaleta PLAN OF TREATMENT No Information
--- OUTSIDE RECORDS SUMMARY | 2024-09-14 14:29 | XMS_ITS ---
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 Saw Operator Name Role Phone Po Jesenia JACKSON Primary Care Provider Gopi Nolan Unavailable [phone] REASON FOR VISIT screening, hx polyps PROBLEMS Problem Type ICD Code Onset Dates Problem Status W/U Status Risk SNOMED Code Notes Problem Diverticulosis of large intestine without perforation or abscess without bleeding (K57.30) Active confirmed Diverticul ar disease of colon ([id number]) Encounters Encounter Location Date Provider Diagnosis [facility] Outpatient [address] [place] [address] [phone] 03/01/2024 Gopi Zavaleta Encounter for scre ening colonoscopy Z12.11 ; Colon polyps K63.5 ; Diverticulosis of large intestine without perforation or abscess without bleeding K57.30 and Internal hemorrhoids K64.8 ASSESSMENTS Encounter Date Diagnosis Assessment Notes Treatment Notes Treatment Clinical Notes 03/01/2024 Encounter for screening colonoscopy (ICD-10 - Z12.11) 03/01/2024 Colon polyps (ICD-10 - K63.5) 03/01/2024 Diverticulosis of large intestine without perforation or abscess without bleeding (ICD-10 - K57.30) 03/01/2024 Internal hemorrhoids (ICD-10 - K64.8) PLAN OF TREATMENT No Information
--- OUTSIDE RECORDS SUMMARY | 2024-09-14 14:29 | XMS_ITS | Patient Health Record ---
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 Role Phone Jesenia Winkler MD Primary Care Provider Gopi Nolan [phone] ALLERGIES Allergen (clinical drug ingredient) Drug/Non Drug Allergy documented on EMR Reaction Allergy Type Onset Date Status Pollen Pollen Unknown Allergy Active Mold Unknown Allergy Active Substance with sulfonamide structure and antibacterial mechanism of action (substance) Sulfa (uncoded) Unknown Allergy Active RESULTS Component Value Reference Range Notes Pathology (Not yet reviewed by provider) Interpretation: Performing Lab:[facility], [address] [place] [id number] Notes/Report: REASON FOR REFERRAL No Information MEDICATIONS Medication SIG (Take, Route, Frequency, Duration) Notes Start Date End Date Status Vitamin D Active Zinc Active Calcium Active potassium Active Simvastatin Active Citalopram Hydrobromide 20 MG TAKE 1 TABLET BY MOUTH DAILY Oral for 90 Active Triamterene-HCTZ 75-50 MG 1 TABLET BY MO UTH DAILY FOR 90 DAYS Oral for 90 Active SOCIAL HISTORY Sex Assigned At : Social History Observation Description Sex Assigned At Unknown PROBLEMS Problem Type ICD Code Onset Dates Problem Status W/U Status Risk SNOMED Code Notes Problem Colon cancer screening (Z12.11) Active confirmed Colon can cer screening (265833472) Problem History of adenomatous polyp of colon (Z86.010) Active confirmed History o f adenomatous polyp of colon (339169206) Problem Personal history of colonic polyps (Z86.010) Active confirmed History of polyp of colon (situation) (406171783) Problem Encounter for other preprocedural examination (Z01.818) Active confirmed Pre-procedure evaluation check (952398510) Problem Diverticulosis of large intestine without perforation or abscess without bleeding (K57.30) Active confirmed Diverticul ar disease of colon (912581230) VITAL SIGNS Temperature 97.4 degrees Fahrenheit 12/02/2023 Blood pressure diastolic 00 mm Hg 12/02/2023 Height 62 in 12/02/2023 Blood pressure systolic 00 mm Hg 12/02/2023 Weight 159 lbs 12/02/2023 BMI 29.08 kg/m2 12/02/2023 Encounters Encounter Location Date Provider Diagnosis [facility] [place] [facility] [address] [place], [place] [id number] 03/01/2024 Gopi Zavaleta Encounter for screen ing colonoscopy Z12.11 ; Colon polyps K63.5 ; Diverticulosis of large intestine without perforation or abscess without bleeding K57.30 and Internal hemorrhoids K64.8 [facility] [address] [place] [address] 12/02/2023 Gopi Zavaleta Colon cancer screeni ng Z12.11 ; Encounter for other preprocedural examination Z01.818 ; Personal history of colonic polyps Z86.010 and History of adenomatous polyp of colon Z86.010 ASSESSMENTS Encounter Date Diagnosis Assessment Notes Treatment Notes Treatment Clinical Notes 03/01/2024 Encounter for screening colonoscopy (ICD-10 - Z12.11) 03/01/2024 Colon polyps (ICD-10 - K63.5) 12/02/2023 Colon cancer screening (ICD-10 - Z12.11) Do not take the Triamterene-Starr chlorothiazide the day before nor on the day of the colonoscopy 12/02/2023 Encounter for other preprocedural examination (ICD-10 - Z01.818) 03/01/2024 Diverticulosis of large intestine without perforation or abscess without bleeding (ICD-10 - K57.30) 12/02/2023 Personal history of colonic polyps (ICD-10 - Z86.010) 03/01/2024 Internal hemorrhoids (ICD-10 - K64.8) 12/02/2023 History of adenomatous polyp of colon (ICD-10 - Z86.010) PLAN OF TREATMENT Pending Test Test Name Order Date Pathology 03/01/2024 Future Test Test Name Order Date COLONOSCOPY 10/14/2012 COLONOSCOPY 12/02/2023 Insurance Providers Payer Name Payer Address Payer Phone Subscriber Number Group Number Insured Name Patient Relationship to Insured Coverage Start Date Coverage End Date [employer] [address] [place] [address] [id number] MALISSA TABARES Self - patient is the insured MEDICAL (GENERAL) HISTORY Medical History History ICD Code Colonoscopy 05/18/2007-with removal of a tubular adenoma Anxiety HTN Hyperlipidemia Denies ID,DM,CVA,Lung disease,renal dise ase Negative screening colonoscopy in 2012 Surgical History Surgery Date(Month/Year) Rectocele surgery Left Eye surgery for lazy eye
--- OUTSIDE RECORDS SUMMARY | 2024-09-14 14:29 | XMS_ITS ---
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 Role Phone Jesenia Winkler MD Primary Care Provider Gopi Nolan [phone] ALLERGIES Allergen (clinical drug ingredient) Drug/Non Drug Allergy documented on EMR Reaction Allergy Type Onset Date Status Pollen Pollen Unknown Allergy Active Mold Unknown Allergy Active Substance with sulfonamide structure and antibacterial mechanism of action (substance) Sulfa (uncoded) Unknown Allergy Active REASON FOR VISIT Patient presents today for a recall colonoscopy MEDICATIONS Medication SIG (Take, Route, Frequency, Duration) Notes Start Date End Date Status potassium Active Simvastatin Active Citalopram Hydrobromide 20 MG TAKE 1 TABLET BY MOUTH DAILY Oral for 90 Active Triamterene-HCTZ 75-50 MG 1 TABLET BY MO UTH DAILY FOR 90 DAYS Oral for 90 Active Vitamin D Active Zinc Active Calcium Active SOCIAL HISTORY Tobacco Use: Social History Observation Description Date Details (start date - stop date) Never Smoker NA - NA Sex Assigned At : Social History Observation Description Sex Assigned At Unknown Tobacco Use/Smoking Question Answer Notes Patient is a nonsmoker Alcohol Screen Question Answer Notes Did you have a drink contain ing alcohol in the past year? Yes Points 3 Interpretation Positive How often did you have 6 or more drinks on one occasion in the past year? Never (0 point) How many drinks did you have on a typical day when you were drinking in the past year? 1 or 2 drinks (0 point) How often did you have a dri nk containing alcohol in the past year? 2 to 3 times a week (3 points) PROBLEMS Problem Type ICD Code Onset Dates Problem Status W/U Status Risk SNOMED Code Notes Problem Colon cancer screening (Z12.11) Active confirmed Colon cancer screening (084016649) Problem Personal history of colonic polyps (Z86.010) Active confirmed History of polyp of colon (situation) (322304067) Problem History of adenomatous polyp of colon (Z86.010) Active confirmed History of adenomatous polyp of colon (546571168) Problem Encounter for other preprocedural examination (Z01.818) Active confirmed Pre-procedure evaluation check (799650743) VITAL SIGNS BMI 29.08 kg/m2 12/02/2023 Blood pressure systolic 00 mm Hg 12/02/19 24 Blood pressure diastolic 00 mm Hg 024 Height 62 in 12/02/2023 Temperature 97.4 degrees Fahrenheit 12/02/19 24 Weight 159 lbs 12/02/2023 Encounters Encounter Location Date Provider Diagnosis [facility] [address] [place] [address] 12/02/2023 Gopi Zavaleta Colon cancer screeni ng Z12.11 ; Encounter for other preprocedural examination Z01.818 ; Personal history of colonic polyps Z86.010 and History of adenomatous polyp of colon Z86.010 ASSESSMENTS Encounter Date Diagnosis Assessment Notes Treatment Notes Treatment Clinical Notes 12/02/2023 Colon cancer screening (ICD-10 - Z12.11) Do not take the Triamterene-Hydroc hlorothiazide the day before nor on the day of the colonoscopy 12/02/2023 Encounter for other preprocedural examination (ICD-10 - Z01.818) 12/02/2023 Personal history of colonic polyps (ICD-10 - Z86.010) 12/02/2023 History of adenomatous polyp of colon (ICD-10 - Z86.010) PLAN OF TREATMENT Treatment Notes Assessment Notes Colon cancer screening Do not take the T riamterene-Hydrochlorothiazide the day before nor on the day of the colonoscopy Future Test Test Name Order Date COLONOSCOPY 12/02/2023 Next Appt Details Follow Up: prn, Reason: Progress Notes * Examination Category Sub-Category Detail Notes General Examination GENERAL APPEARANCE: pleasant , well nourished, well developed, in no acute distress EYES: sclera non-icteric NECK/THYROID: no cervical lymphade nopathy, neck supple HEART: S1, S2 normal LUNGS: clear to auscultatio n bilaterally ABDOMEN: normal bowel sounds, no guarding or rigidity, no hepatosplenomegaly, no masses palpable, soft, nontender, nondistended. NEUROLOGIC: alert and oriented SKIN: nonjaundiced, no spi rome angiomata. EXTREMITIES: no edema ORAL CAVITY: mucosa moist
[2024-09-14 15:17] VITALS: BP 110/76; PULSE 52; O2SAT 98
--- NOTE | 2024-09-14 15:17 | AM.OFFWIN_ITS ---
Intake Vital Signs 09/14/24 15:17 Weight 153 lb 6 oz BP 110/76 Blood Pressure Location Rt brachial Position Sitting Pulse 52 Pulse Source Pulse Oximeter Pulse Oximetry (%) 98 Oxygen Delivery Method Room Air Intake Visit Reasons: EP-pain in dorsal spine Intake Note: Patient here for right sided mid back pain that radiates to the side and has been present for a couple of weeks. Patient Tobacco Use Status: Former Tobacco user Allergies Sulfa (Sulfonamide Antibiotics) Allergy (Severe, Verified 09/14/24 15:32) Anaphylaxis atenolol Adverse Reaction (Intermediate, Verified 09/14/24 15:32) bradycardia pantoprazole Adverse Reaction (Intermediate, Verified 09/14/24 15:32) Diarrhea Medication List - Last Reconciled 09/14/24 by Fab Dukes MD alprazolam 0.5 mg PO BEDTIME PRN ascorbate calcium (vitamin C) 500 mg PO DAILY blood pressure monitor (Blood Pressure Kit) As directed cetirizine (All Day Allergy (cetirizine)) 10 mg PO DAILY cholecalciferol (vitamin D3) 25 mcg PO DAILY citalopram 40 mg PO DAILY 90 days famotidine (Pepcid) 40 mg PO BEDTIME lisinopril 10 mg PO DAILY 90 days polydextrose (Childrens Fiber Gummy Bear) grams PO simvastatin 40 mg PO QPM triamcinolone acetonide 0.5% 1 appl topical BID triamterene-hydrochlorothiazid 75-50 mg 1 tab PO DAILY 90 days zinc gluconate 50 mg PO DAILY [zinc magnesium and calcium PO .QD] Do you need a note to return to daycare/school/sports/work: No HPI EP-pain in dorsal spine HPI Details 74-year-old female presents to the offic for a sick visit. Patient is complaining of a sharp painful spot in her upper back. Symptoms have been present for the last 10 days. She has been vigorously using her upper extremity lifting boxes etcetera. Pain is worse on lifting the left arm. No relation to breathing. No fevers or chills. [facility] Medical History (Updated 09/14/24 @ 15:33 by Fab Dukes MD) Colon cancer screening Anxiety HTN (hypertension) GERD (gastroesophageal reflux disease) Surgical History (Updated 02/27/24 @ 08:16 by Alivia Blanco RN) H/O colonoscopy Hx of tonsillectomy H/O eye surgery H/O rectocele repair Family History Father No problems noted. Mother No problems noted. Sister No problems noted. Daughter No problems noted. Daughter No problems noted. Social History (Updated 08/19/24 @ 09:34 by Jesenia Winkler MD) Housing: House Alcohol intake: current Alcohol intake frequency: 0-2 drinks per day Comment: Q day glass of wine Patient Tobacco Use Status: Former Tobacco user Tobacco use type: Cigarette Years Smoked: quit 1984 e-Cigarette/Vaping Use: Never Used Second Hand Smoke Exposure: No service: No Current occupational status: retired Cognitive needs: No Hearing needs: No Vision needs: Yes Physical Exam Vital Signs: Last Vital Signs Pulse 52 09/14/24 15:17 BP 110/76 09/14/24 15:17 Pulse Ox 98 09/14/24 15:17 Oxygen Delivery Method Room Air 09/14/24 15:17 Const General: cooperative and healthy appearing Nutritional Appearance: well nourished Orientation/consciousness: patient oriented x3 Limitations: no limitations HEENT Head: Yes normal to inspection Eyes General: appearance normal, both eyes and all related structures Neck Neck: Yes normal visual inspection Chest Chest palpation & inspection: normal palpation of entire chest wall Resp Effort & Inspection: normal respiratory effort Back/Spine/Pelvis Other: No visible rash. No spinal tenderness or paraspinal spasm. Neuro General: patient oriented x3 Assessment & Plan Assessment & Plan (1) Upper back pain: Code(s): M54.9 - Dorsalgia, unspecified Plan: X-ray images personally reviewed by me. Most likely symptoms muscular etiology. Anti-inflammatory and muscle relaxant called in. Orders: Orders XR chest 2V Today R05.9 - Cough, unspecified Coding Level of Care Code Est Pt Level 4 (25282) Diagnoses Upper back pain M54.9
== END 2024-09-14 15:38 | disposition home or self-care (01) ==
PROVIDERS: PCP Internal Medicine; Visit Provider Internal Medicine
DX: M54.9 Dorsalgia, unspecified (principal)

== ENCOUNTER 2024-09-14 14:27 | Outpatient (REF) | payer MEDICARE, SELFPAY ==
--- NOTE | ~2024-09-14 | XR_ITS ---
EXAMINATION: XR CHEST CLINICAL INFORMATION: Cough, unspecified R05.9. COMPARISON: None available TECHNIQUE: 2 views of the chest were obtained. FINDINGS: Cardiomediastinal silhouette is normal in size. The lungs appear hyperexpanded with flattening of the diaphragms. There is no consolidation, pleural effusion or pneumothorax. Spondylitic changes in the visualized spine. XR/XR chest 2V IMPRESSION: 1. No acute cardiopulmonary process. 2. Hyperexpanded lungs. Electronically signed by: Gopi Swan MD 10/27/2024 12:48 PM [facility]
== END 2024-09-14 14:28 | disposition home or self-care (01) ==
LOC: HO.HMGCX 14:27
PROVIDERS: PCP Internal Medicine; Visit Provider Internal Medicine
DX: R05.9 Cough, unspecified (principal); M54.9 Dorsalgia, unspecified
CPT/HCPCS: 71046; 99212

== ENCOUNTER 2024-12-01 09:55 | Outpatient (AMB) | payer MEDICARE, SELFPAY ==
[2024-12-01 10:01] VITALS: BP 126/80; PULSE 66; O2SAT 92; BMI 28.7
--- NOTE | 2024-12-01 10:01 | MHC.PC.OV ---
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 Required: No Accompanied by: Self / Same As Patient Allergies Sulfa (Sulfonamide Antibiotics) Allergy (Severe, Verified 12/01/24 10:14) Anaphylaxis atenolol Adverse Reaction (Intermediate, Verified 12/01/24 10:14) bradycardia pantoprazole Adverse Reaction (Intermediate, Verified 12/01/24 10:14) Diarrhea Medication List - Last Reconciled 12/01/24 by Brittaney Ackerman PA-C alprazolam 0.5 mg PO BEDTIME PRN ascorbate calcium (vitamin C) 500 mg PO DAILY blood pressure monitor (Blood Pressure Kit) As directed cetirizine (All Day Allergy (cetirizine)) 10 mg PO DAILY cholecalciferol (vitamin D3) 25 mcg PO DAILY citalopram 40 mg PO DAILY 90 days cyclobenzaprine 10 mg PO BEDTIME famotidine (Pepcid) 40 mg PO BEDTIME lisinopril 10 mg PO DAILY 90 days meloxicam 15 mg PO DAILY polydextrose (Childrens Fiber Gummy Bear) grams PO simvastatin 40 mg PO QPM triamcinolone acetonide 0.5% 1 appl topical BID triamterene-hydrochlorothiazid 75-50 mg 1 tab PO DAILY 90 days zinc gluconate 50 mg PO DAILY [zinc magnesium and calcium PO .QD] Tobacco use date assessed: 12/01/24 Fall risk assessment: No Falls in past year Last assessed Fall Risk: 12/01/24 Dental Screening Dental Screen Date: 12/01/24 Did you have a dental visit in the last 12 months?: No Did you have a dental problem in the last 6 months where you did not have access to dental care?: No Was dental information given to patient?: No HPI headaches and ?sinus infection HPI Details 74-year-old female with past medical history of hypertension, hypercholesterolemia, generalized anxiety disorder, hypothyroidism and GERD last seen 07/2024 coming in for acute problem. Presenting with sinus pressure and headache [id number]-11 infection. She experienced earaches, sinus pressure, and congestion approximately three weeks after COVID-19 infection, with sinus tenderness radiating into the head. Relieves symptoms temporarily with Tylenol and Flonase, though with transient effects. Reports tenderness and ache on the right side of the head, extending into the neck, with hair sensitivity. The pain sometimes emanates behind the eyes and descends along the side of the head. No pronounced rash detected, yet some scalp tenderness. [facility] Medical History Colon cancer screening Anxiety HTN (hypertension) GERD (gastroesophageal reflux disease) Surgical History H/O colonoscopy Hx of tonsillectomy H/O eye surgery H/O rectocele repair Family History Father No problems noted. Mother No problems noted. Sister No problems noted. Daughter No problems noted. Daughter No problems noted. Social History Housing: House Alcohol intake: current Alcohol intake frequency: 0-2 drinks per day Comment: Q day glass of wine Patient Tobacco Use Status: Former Tobacco user Tobacco use type: Cigarette Years Smoked: quit 1984 e-Cigarette/Vaping Use: Never Used Second Hand Smoke Exposure: No service: No Current occupational status: retired Cognitive needs: No Hearing needs: No Vision needs: Yes Questionnaire PHQ-9 Over the last 2 weeks, how often have you been bothered by any of the following problems? 1. Little interest or pleasure in doing things: not at all 2. Feeling down, depressed, or hopeless: not at all 3. Trouble falling or staying asleep, or sleeping too much: not at all 4. Feeling tired or having little energy: not at all 5. Poor appetite or overeating: not at all 6. Feeling bad about yourself - or that you are a failure or have let yourself or your family down: not at all 7. Trouble concentrating on things, such as reading the newspaper or watching television: not at all 8. Moving or speaking so slowly that other people could have noticed. Or the opposite - being so fidgety or restless that you have been moving around a lot more than usual: not at all 9. Thoughts that you would be better off or of hurting yourself in some way: not at all Total score: 0 Source: Developed by Drs. Gopi Rodríguez, Estefani Diggs, Juancho Rivero and colleagues, with an educational marquis from [employer]. Thrive Questionnaire Date Thrive assessed: 12/01/24 I am a: Patient What is your living situation today?: I have a steady place to live Within the past 12 months, did the food you bought not last and you didn't have the money to get more?: Never true Within the past 12 months, did you worry whether your food would run out before you got money to buy more?: Never true Do you have trouble paying for medicines?: No Do you have trouble getting transportation to medical appointments?: No Do you have trouble paying your heating and electricity bill?: No Do you have trouble taking care of your child, family member or friend?: No Do you have trouble with day-to-day activities such as bathing, preparing meals, shopping, managing finances, etc.?: No Are you currently unemployed and looking for a job?: No Are you interested in more education?: Yes Please select the resources that you would like help with: None Currently or been in a relationship where the following occur: No concerns reported THRIVE Score: 0 AUDIT C Alcohol Use Questionnaire (AUDIT-C) 1. How often do you have a drink containing alcohol?: Monthly or less 2. How many drinks containing alcohol do you have on a typical day when you are drinking?: 1 or 2 3. How often do you have six or more drinks on one occasion?: Never Total Score: 1 WILLY-7 AMB Questionnaire WILLY-7 Date WILLY - 7 assessed: 12/01/24 Feeling nervous, anxious, or on edge: 0 = Not at all Not being able to stop or control worryin = Not at all Worrying too much about different things: 0 = Not at all Trouble relaxin = Not at all Being so restless that it is hard to sit still: 0 = Not at all Becoming easily annoyed or irritable: 0 = Not at all Feeling afraid as if something awful might happen: 0 = Not at all Total WILLY-7 score (0-4 normal; 5-9 mild; 10-14 moderate; 15-21 severe): 0 Source: Developed by Drs. Gopi Rodríguez, Estefani Diggs, Juancho Rivero and colleagues, with an educational marquis from [employer]. Review of Systems Const Denies body aches, Denies chills, Denies fever(s), Reports headache(s) and Denies poor appetite Eyes Reports no additional complaints ENT Reports Normal hearing present, Denies dysphagia, Denies dizziness, Reports headache(s), Reports nasal congestion, Reports nasal discharge and Denies odynophagia Card Denies chest pain, Denies lightheadedness and Denies dyspnea Resp Denies cough and Denies dyspnea GI Reports no additional complaints, Denies dysphagia and Denies odynophagia Reports no additional complaints Musc Reports no additional complaints and Denies abnormal gait Skin/Breast Reports system reviewed and no additional complaints, except as documented Neuro Reports Normal hearing present, Denies abnormal gait, Denies dizziness and Reports headache(s) Psych Reports no additional complaints Physical exam (Primary Care) Vital Signs: Last Vital Signs Pulse 66 12/01/24 10:01 BP 126/80 12/01/24 10:01 Pulse Ox 92 12/01/24 10:01 Oxygen Delivery Method Room Air 12/01/24 10:01 BMI result Body Mass Index 28.7 Tobacco/Smoking Status: Tobacco use Status Tobacco use date assessed 12/01/24 12/01/24 10:08 Patient Tobacco Use Status Former Tobacco user 12/01/24 10:08 Tobacco use type Cigarette 12/01/24 10:08 e-Cigarette/Vaping Use Never Used 12/01/24 10:08 PHQ-9: PHQ-9 Score PHQ-9: Total score 0 12/01/24 10:14 Thrive Assessment: Date of Thrive Assessment Date Thrive assessed 12/01/24 12/01/24 10:08 Currently or been in a relationship where the following occur: No concerns reported Const General: cooperative, healthy appearing, comfortable and no acute distress Orientation/consciousness: patient oriented x3 HENMT Other: No visible rashes on the scalp but tenderness to palpation over right side of the head. Sinus tenderness Head: Yes normocephalic Ears: hearing grossly normal bilaterally, TM's normal bilaterally and EAC's normal General nose exam: Normal external nose present Mouth: Normal oral and palatal mucosa present and oropharynx normal Throat: Yes posterior oropharynx normal Eyes General: appearance normal, both eyes and all related structures Conjunctivae: conjunctivae normal Pupils: Equal, round and reactive pupils present EOM: No Nystagmus present Neck Neck: Yes full ROM and Yes no lymphadenopathy Resp Effort & Inspection: normal respiratory effort Auscultation: clear to auscultation bilaterally, no crackles, no rales, no rhonchi and no wheezes Cardio Rate: regular rate Rhythm: regular rhythm Skin General skin exam: no rashes or lesions noted Neuro General: patient oriented x3 Cranial nerves: Yes CN's II-XII intact bilaterally, Yes Facial sensation intact/muscles of mastication intact, Yes Equal, round and reactive pupils present, Yes Bilaterally intact EOM present, Yes Normal facial strength present, Yes Midline tongue present, Yes Normal hearing present, Yes Ability to bilaterally rotate head present, Yes Ability to bilaterally elevate shoulders present and No Nystagmus present Gait exam (Neuro): Normal gait present Extrem General: Yes normal to inspection, Yes full ROM and No edema Psych Affect: normal affect Attitude: cooperative Insight: Good insight present (Psych) Judgement: Good judgement present (Psych) Coding Level of Care Code Est Pt Level 3 (80090) Diagnoses Primary hypertension I10 Hypertension type: primary hypertension Sinusitis J32.9 Headache R51.9 Assessment & Plan Assessment & Plan (1) Hypertension: Code(s): I10 - Essential (primary) hypertension Category: Medical Qualifiers: Hypertension type: primary hypertension Qualified Code(s): I10 - Essential (primary) hypertension Plan: Continue on current blood pressure medication. Avoid salt intake and encourage healthy diet and regular exercise. (2) Sinusitis: Code(s): J32.9 - Chronic sinusitis, unspecified Category: Medical Plan: Initiate treatment with amoxicillin for suspected sinusitis following COVID-19 infection, considering her lack of penicillin allergy. Additionally, a short course of steroids may assist with reducing inflammation. Saline nasal spray and Flonase are recommended to address sinus clearing. (3) Headache: Code(s): R51.9 - Headache, unspecified Category: Medical Plan: Patient is neurologically intact on exam today. Monitor for rash development suggestive of shingles, due to reported scalp sensitivity and bumps, even though rash was not evident during examination. Patient advised to observe any changes and pursue prompt medical attention if symptoms develop. Persistent headaches following antibiotic and steroid treatment may necessitate reevaluation, considering alternative diagnoses such as shingles or other sinus complications. Can consider additional blood work such as inflammatory markers if scalp tenderness persists Plan Patient was informed and verbally consented to the use of an ambient scribe for clinic note documentation during this visit. This note was constructed using voice recognition software. While every effort has been made to ensure accuracy and beating machine operator, still areas may have been included sometimes these areas may affect the content or meeting of the given symptoms. Total time spent caring for the patient today was 20 minutes. This includes time spent before the visit reviewing the chart, time spent during the visit, and time spent after the visit and documentation. Medications: New amoxicillin 875 mg PO BID 14 tabs 0RF prednisone 10 mg PO DAILY 5 tabs 0RF
--- OUTSIDE RECORDS SUMMARY | 2024-12-01 11:29 | XMS_ITS ---
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 Name Role Phone Po Jesenia JACKSON Primary Care Provider Gopi Nolan [phone] REASON FOR VISIT screening, hx polyps Problems Problem Type SNOMED Code ICD Code Onset Dates Problem Status W/U Status Risk Notes Problem Diverticular disease of colon (769129733) Diverticulosis of large intestine without perforation or abscess without bleeding (K57.30) Active confirmed Encounters Encounter Location Date Provider Diagnosis [facility] [place] Outpatient [address] [place] [phone] 03/01/2024 Gopi Zavaleta Encounter for scre ening [...] No Information Progress Notes * MALISSA TABARESDOB:1950 (74 yo F)Acc No.[id number]:03/01/2024 COLON WITH MAC Patient:?MALISSA TABARES Provider:?Gopi Zavaleta MD :1950???Age:73 Y???Sex:Female D ate:03/01/2024 Address:[address] [facility] Pcp:Jesenia Winkler MD Subjective: * Chief Complaints: * ???1. Screening, hx polyps. * Medical History:? Objective: * Vitals:? Assessment: * Assessment: 1.?Encounter for screening c olonoscopy - Z12.11 (Primary)???2.?Colon polyps - K63.5???3.?Diverticulosis of large intestine without perforation or abscess without bleeding - K57.30???4.?Internal hemorrhoids - K64.8??? Plan: * Treatment: * Procedure Codes:?92491 COLON OSCOPY AND BIOPSY, Modifiers: PT * * The named appointment provid er may or may not be the originator of this progress note, and it is not deemed complete until electronically signed by the appointment provider. Sign off status: Pending * Provider:?Gopi Zavaleta MD Date:? 024 Generated for Savanna brown/Ophelia/eTransmitting on:?12/01/2024 11:29 AM EST
--- OUTSIDE RECORDS SUMMARY | 2024-12-01 11:29 | XMS_ITS ---
Author Organization [facility] Address [address] [place] [phone] Care Team Providers Care Spool Tender Name Role Phone eJsenia Winkler MD Primary Care Provider Gopi Nolan [phone] REASON FOR VISIT recall colonoscopy Encounters Encounter Location Date Provider Diagnosis [facility] [address] [place] [phone] 08/08/2023 Gopi Zavaleta Plan Of Treatment No Information Progress Notes * MALISSA TABARESDOB:1950 (74 yo F)Acc No.[id number]:08/08/2023 Progress Notes Patient:MALISSA POWELL Provider:?Gopi Zavaleta MD :1950???Age:73 Y???Sex:Female D ate:08/08/2023 [facility] Pcp:Jesenia Winkler MD Subjective: * Chief Complaints: * ???1. Recall colonoscopy. * Medical History:? Objective: * Vitals:? Assessment: Plan: * Treatment: * * The named appointment provid er may or may not be the originator of this progress note, and it is not deemed complete until electronically signed by the appointment provider. Sign off status: Pending * Provider:?Gopi Zavaleta MD Date:? 023 Generated for Savanna brown/Ophelia/eTransmitting on:?12/01/2024 11:29 AM EST
--- OUTSIDE RECORDS SUMMARY | 2024-12-01 11:29 | XMS_ITS | Patient Health Record ---
Author Organization [facility] Address [address] [place] [address] Care Team Providers Care Retail Management Keyholder Name Role Phone Jesenia Winkler MD Primary Care Provider Gopi Nolan Unavailable [phone] Allergies Allergen (clinical drug ingredient) Drug/Non Drug Allergy documented on EMR Reaction Allergy Type Onset Date Status Pollen Pollen Unknown Allergy Active Mold Unknown Allergy Active Substance with sulfonamide structure and antibacterial mechanism of action (substance) Sulfa (uncoded) Unknown Allergy Active Results Component Value Reference Range Notes Pathology (Not yet reviewed by provider) Interpretation: Performing Lab:[facility], [address] [place] [phone] Notes/Report: Name: Malissa Tabares Age/Sex: 73/F : 1950 Unit#: [id number] Attend Dr: Gopi Zavaleta Re03/01/24 Status : [facility] Location: [facility] Disch: SPEC : [id number] RECD : 03/01/24 STATUS: YAHAIRA SALCEDO NUM: [id number] DMITRI: 03/01/24-1010 [facility] DR: Gopi Zavaleta ENTERED: 03/01/24-11 41 SP TYPE: Surgical OTHR DR: Jesenia Winkler MD ORDERED: HE Stain/3, Gross Micro L4 Diagnosis Colon, cecum, polype ctomy: Tubular adenoma; negative for high-grade dysplasia. Clinical History Pre-Op Dx: Screening Post-Op Dx: Divertic ulosis, polyp, hemorrhoids Microscopic Description Microscopic sections reviewed. Material Received Cecal polyp Gross Description Received in formalin labeled ?cecal polyp? are 3 thompson irregular and rectangular tissue fragments ranging fr om 0.1-0.3 cm, submitted in toto in a cassette labeled A. CEDS Copies To: Jesenia Winkler MD [address] [place] [address] [address] [place] [address] Gopi Zavaleta [address] [place] [address] [address] [place] [address] Signed (si gnature on file) Liane Cunningham MD 03/02/24 1421 END OF REPORT Reason For Referral No Information Medications Medication SIG (Take, Route, Frequency, Duration) Notes Start Date End Date Status Vitamin D Active Zinc Active Calcium Active potassium Active Simvastatin Active Citalopram Hydrobromide 20 MG TAKE 1 TABLET BY MOUTH DAILY Oral for 90 Active Triamterene-HCTZ 75-50 MG 1 TABLET BY MO UT DAILY FOR 90 DAYS Oral for 90 Active Problems Problem Type SNOMED Code ICD Code Onset Dates Problem Status W/U Status Risk Notes Problem Colon cancer screening (198813599) Colon cancer screening (Z12.11) Active confirmed Problem History of adenomatous polyp of colon (534562225) History of adenomatous polyp of colon (Z86.010) Active confirmed Problem History of polyp of colon (situation) (499043715) Personal history of colonic polyps (Z86.010) Active confirmed Problem Pre-procedure evaluation check (812912523) Encounter for other preprocedural examination (Z01.818) Active confirmed Problem Diverticular disease of colon (571504588) Diverticulosis of large intestine without perforation or abscess without bleeding (K57.30) Active confirmed Vital Signs Temperature 97.4 degrees Fahrenheit 12/02/2023 Blood pressure diastolic 00 mm Hg 12/02/2023 Height 62 in 12/02/2023 Blood pressure systolic 00 mm Hg 12/02/2023 Weight 159 lbs 12/02/2023 BMI 29.08 kg/m2 12/02/2023 Encounters Encounter Location Date Provider Diagnosis [facility] [place] [address] [place], [place] [id number] 03/01/2024 Gopi Zavaleta Encounter for screen ing colonoscopy Z12.11 ; Colon polyps K63.5 ; Diverticulosis of large intestine without perforation or abscess without bleeding K57.30 and Internal hemorrhoids K64.8 [facility] [address] [place] [address] 12/02/2023 Gopi Zavaleta Colon cancer screeni ng Z12.11 ; Encounter for other preprocedural examination Z01.818 ; Personal history of colonic polyps Z86.010 and History of adenomatous polyp of colon Z86.010 Assessments Encounter Date Diagnosis (ICD Code) Assessment Notes Treatment Notes Treatment Clinical Notes Section Notes 03/01/2024 Encounter for screening colonoscopy (ICD-10 - Z12.11) 03/01/2024 Colon polyps (ICD-10 - K63.5) 12/02/2023 Colon cancer screening (ICD-10 - Z12.11) Do not take the Triamterene-Hy drochlorothiaz blessing the day before nor on the day of the colonoscopy Overall, Malissa appears quite well. Given her age, excellent clinical appearance, and her last colonoscopy over 10 years ago, he did recommend a followup colonoscopy for further screening purposes. We did review the rationale for this in regard to colon cancer prevention. Full consent is obtained for this, including risks of bleeding and perforation. The procedure will be done with monitored anesthesia care. She was given the below instructions regarding adjustment of her medication for the procedure. Malissa was comfortable with this plan. Thank you again for allowing me to participate in Malissa's care. I shall continue to keep you advised of her progress. 12/02/2023 Encounter for other preprocedural examination (ICD-10 - Z01.818) Overall, Malissa appears quite well. Given her age, excellent clinical appearance, and her last colonoscopy over 10 years ago, he did recommend a followup colonoscopy for further screening purposes. We did review the rationale for this in regard to colon cancer prevention. Full consent is obtained for this, including risks of bleeding and perforation. The procedure will be done with monitored anesthesia care. She was given the below instructions regarding adjustment of her medication for the procedure. Malissa was comfortable with this plan. Thank you again for allowing me to participate in Malissa's care. I shall continue to keep you advised of her progress. 03/01/2024 Diverticulosis of large intestine without perforation or abscess without bleeding (ICD-10 - K57.30) 12/02/2023 Personal history of colonic polyps (ICD-10 - Z86.010) Overall, Malissa appears quite well. Given her age, excellent clinical appearance, and her last colonoscopy over 10 years ago, he did recommend a followup colonoscopy for further screening purposes. We did review the rationale for this in regard to colon cancer prevention. Full consent is obtained for this, including risks of bleeding and perforation. The procedure will be done with monitored anesthesia care. She was given the below instructions regarding adjustment of her medication for the procedure. Malissa was comfortable with this plan. Thank you again for allowing me to participate in Malissa's care. I shall continue to keep you advised of her progress. 03/01/2024 Internal hemorrhoids (ICD-10 - K64.8) 12/02/2023 History of adenomatous polyp of colon (ICD-10 - Z86.010) Overall, Malissa appears quite well. Given her age, excellent clinical appearance, and her last colonoscopy over 10 years ago, he did recommend a followup colonoscopy for further screening purposes. We did review the rationale for this in regard to colon cancer prevention. Full consent is obtained for this, including risks of bleeding and perforation. The procedure will be done with monitored anesthesia care. She was given the below instructions regarding adjustment of her medication for the procedure. Malissa was comfortable with this plan. Thank you again for allowing me to participate in Malissa's care. I shall continue to keep you advised of her progress. Plan Of Treatment Pending Test Test Name Order Date Pathology 03/01/2024 Future Test Test Name Order Date COLONOSCOPY 10/14/2012 COLONOSCOPY 12/02/2023 Insurance Providers Payer Name Payer Address Payer Phone Subscriber Number Group Number Insured Name Patient Relationship to Insured Coverage Start Date Coverage End Date [employer] [address] [place] [address] [id number] MALISSA TABARES Self - patient is the insured Medical (General) History Medical History History ICD Code Colonoscopy 05/18/2007-with removal of a tubular adenoma Anxiety HTN Hyperlipidemia Denies ND,DM,CVA,Lung disease,renal dise ase Negative screening colonoscopy in 2012 Surgical History Surgery Date(Month/Year) Rectocele surgery Left Eye surgery for lazy eye
--- OUTSIDE RECORDS SUMMARY | 2024-12-01 11:30 | XMS_ITS ---
Author Organization [facility] Address [address] [place] [id number] Care Team Providers Care Licensed Psychologist Name Role Phone Jesenia Winkler MD Primary Care Provider Gopi Nolan [phone] Allergies Allergen (clinical drug ingredient) Drug/Non Drug Allergy documented on EMR Reaction Allergy Type Onset Date Status Pollen Pollen Unknown Allergy Active Mold Unknown Allergy Active Substance with sulfonamide structure and antibacterial mechanism of action (substance) Sulfa (uncoded) Unknown Allergy Active REASON FOR VISIT Patient presents today for a recall colonoscopy Medications Medication SIG (Take, Route, Frequency, Duration) Notes Start Date End Date Status potassium Active Simvastatin Active Citalopram Hydrobromide 20 MG TAKE 1 TABLET BY MOUTH DAILY Oral for 90 Active Triamterene-HCTZ 75-50 MG 1 TABLET BY MO UTH DAILY FOR 90 DAYS Oral for 90 Active Vitamin D Active Zinc Active Calcium Active Social History Tobacco Use: Social History Observation Description Date Details (start date - stop date) Never Smoker NA - NA Tobacco Use/Smoking Question Answer Notes Patient is [...] to 3 times a week (3 points) Section Notes: Nonsmoker; 1 glass of wine w ith dinner Problems Problem Type SNOMED Code ICD Code Onset Dates Problem Status W/U Status Risk Notes Problem Colon cancer screening (970248510) Colon cancer screening (Z12.11) Active confirmed Problem History of polyp of colon (situation) (151613852) Personal history of colonic polyps (Z86.010) Active confirmed Problem History of adenomatous polyp of colon (578321985) History of adenomatous polyp of colon (Z86.010) Active confirmed Problem Pre-procedure evaluation check (076566079) Encounter for other preprocedural examination (Z01.818) Active confirmed Vital Signs Temperature 97.4 degrees Fahrenheit 12/02/19 24 Blood pressure systolic 00 mm Hg 12/02/19 24 Blood pressure diastolic 00 mm Hg 024 Height 62 in 12/02/2023 Weight 159 lbs 12/02/2023 BMI 29.08 kg/m2 12/02/2023 Encounters Encounter Location Date Provider Diagnosis [facility] [address] [place] [address] 12/02/2023 Gopi Zavaleta Colon cancer screeni ng Z12.11 ; Encounter for other preprocedural examination Z01.818 ; Personal history of colonic polyps Z86.010 and History of adenomatous polyp of colon Z86.010 Assessments Encounter Date Diagnosis (ICD Code) Assessment Notes Treatment Notes Treatment Clinical Notes Section Notes 12/02/2023 Colon cancer screening (ICD-10 - [...] keep you advised of her progress. 12/02/2023 Personal history of colonic polyps (ICD-10 [...] keep you advised of her progress. 12/02/2023 History of adenomatous polyp of colon [...] advised of her progress. Plan Of Treatment Treatment Notes Assessment Notes Colon cancer screening Do not take the T riamterene-Hydrochlorothiazide the day before nor on the day of the colonoscopy Future Test Test Name Order Date COLONOSCOPY 12/02/2023 Next Appt Details Follow Up: prn, Reason: Progress Notes * MALISSA TABARESDOB:1950 (73 yo F)Acc No.[id number]:12/02/2023 Progress Notes Patient:?MALISSA TABARES Provider:?Gopi Zavaleta MD :1950???Age:73 Y???Sex:Female D ate:12/02/2023 Address: [id number] Pcp:Jesenia Winkler MD Subjective: * Chief Complaints: * ???Patient presents today fo r a recall colonoscopy * HPI: ???incontinence:? I saw Malissa in the office today for evaluation of colorectal cancer screening and a previous history of a tubular adenoma of the colon. ?I last saw Malissa in 2012, at which time she underwent a negative followup screening colonoscopy. She presently feels very well. She enjoys a good appetite, without any significant heartburn or dysphagia. Her bowel movements have been regular and without any signs of bleeding. She denies any abdominal pain, jaundice, nor weight loss. She denies any known family history of colon cancer. * ROS:?General/Constitutional:?Change in appetite?denies.?Chills?denies.?Fatigue?denies.?Ophthalmologic:?Patient denies? Negative..?ENT:?Patient denies?Negative..?Respiratory:?Patient denies?No coughing/hemoptysis..?Cardiovascular:?Patient denies? No chest pain/orthopnea..?Gastrointestinal:?Comments?See HPI for details.?Genitourinary:?Patient denies? No dysuria/hematuria..?Musculoskeletal:?Patient denies? No specific arthralgias/myalgias..?Skin:?Patient denies?No rash/pruritus..?Neurologic:?Patient denies? No headaches/seizures..?Psychiatric:?Patient denies?Negative..? * Medical History:? * Surgical History:?Rectocele surgery Left Eye surgery for lazy eye * Hospitalization/Major Diagno stic Procedure:?No Hospitalization History. * Family History:?Father: dece ased.?Mother: .? She denies any known family history of colorectal cancer or polyps. * Social History:?Tobacco Use:?Tobacco Use/Smoking?Patient is a?nonsmoker.?Drugs/Alcohol:?Alcohol Screen?Did you have a drink containing alcohol in the past year??Yes,?How often did you have 6 or more drinks on one occasion in the past year??Never (0 point),?How many drinks did you have on a typical day when you were drinking in the past year??1 or 2 drinks (0 point),?How often did you have a drink containing alcohol in the past year??2 to 3 times a week (3 points),?Points?3,?Interpretation?Positive.?Miscellaneous:?Marital status: . 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 ???Nonsmoker; 1 glass of wine with dinner. * Medications:?TakingVitamin D Zinc Calcium potassium Simvastatin Citalopram Hydrobromide 20 MG Tablet TAKE 1 TABLET BY MOUTH DAILY Oral Triamterene-HCTZ 75- 50 MG Tablet 1 TABLET BY MOUTH DAILY FOR 90 DAYS Oral Taking Vitamin D Taking Zinc Taking Calcium Taking potassium Taking Simvastatin Taking Citalopram Hydrobromide 20 MG Tablet TAKE 1 TABLET BY MOUTH DAILY Oral Taking Triamterene-HCTZ 75-50 MG Tablet 1 TABLET BY MOUTH DAILY FOR 90 DAYS Oral DiscontinuedMaxzide Atenolol CeleXA Xanax Baby Aspirin Suprep Bowel Prep 17.5g/3.13g/1.6g per 6 oz Solution as directed Orally onceMedication List reviewed and reconciled with the patientDiscontinued Maxzide Discontinued Atenolol Discontinued CeleXA Discontinued Xanax Discontinued Baby Aspirin Discontinued Suprep Bowel Prep 17.5g/3.13g/1.6g per 6 oz Solution as directed Orally onceMedication List reviewed and reconciled with the patient * Allergies:?Essence rosales[Allergies Verified] Objective: * Vitals:?Wt: 159 lbs, Ht: 62 in, BMI:29.08 Index, BP: 00/00 mm Hg, Temp: 97.4. * Examination: ???General Examination: ?GENERAL APPEARANCE:?pleasant, well nourished, well developed, in no acute distress.?EYES:?sclera non-icteric.?ORAL CAVITY:?mucosa moist.?NECK/THYROID:?no cervical lymphadenopathy, neck supple.?SKIN:?nonjaundiced, no spider angiomata..?HEART:?S1, S2 normal.?LUNGS:?clear to auscultation bilaterally.?ABDOMEN:?normal bowel sounds, no guarding or rigidity, no hepatosplenomegaly, no masses palpable, soft, nontender, nondistended..?EXTREMITIES:?no edema.?NEUROLOGIC:?alert and oriented.? Assessment: * Assessment: 1.?Encounter for other prepr ocedural examination - Z01.818 (Primary)?2.?Colon cancer screening - Z12.11?3.?Personal history of colonic polyps - Z86.010?4.?History of adenomatous polyp of colon - Z86.010? Overall, Malissa appears quit e well. Given her age, excellent clinical appearance, [...] to keep you advised of her progress. Plan: * Treatment: Notes: Do not take the Triamterene-Hydrochlorothiazide the day before nor on the day of the colonoscopy??2.?Personal history of colonic polyps?Procedure: COLONOSCOPY (Ordered for 12/02/2023)* with MACsched for 03/01/24 at 10:00 ammiralax 3.?History of adenomatous polyp of colon?Procedure: COLONOSCOPY (Ordered for 12/02/2023)* with MACsched for 03/01/24 at 10:00 ammiralax * Procedure Codes:?3017F COLOR ECTAL CA SCREEN DOC [id number] TOBACCO [id number] BP SCR NOT PRFRM REC REASON NOS * Preventive Medicine:? ??Counseling:?Care goal follow-up plan:?Above Normal BMI Follow-up?Giving encouragement to exercise,?BMI management provided?Yes.? ??Urinary Incontinence:?Urinary Incontinence?Assessment:?Present,?Plan of care documented:?Yes,?Type of plan of care:?Lifestyle interventions.? * Follow Up:?prn * * Sign off status: Completed true * Provider:?Gopi Zavaleta MD Date:? 024 Generated for Savanna brown/Ophelia/Luitting on:?12/01/2024 11:29 AM EST History and Physical Notes * HPI (History of Present Illness) Category Sub-Category Detail Notes Category Not es incontinence I saw Malissa in the office today for evaluation of colorectal cancer screening and a previous history of a tubular adenoma of the colon. I last saw Malissa in 2012, at which time she underwent a negative followup screening colonoscopy. She presently feels very well. She enjoys a good appetite, without any significant heartburn or dysphagia. Her bowel movements have been regular and without any signs of bleeding. She denies any abdominal pain, jaundice, nor weight loss. She denies any known family history of colon cancer. Examination Category Sub-Category Detail Notes Category Not es General Examination GENERAL APPEARANCE: pleasant , well [...]
--- OUTSIDE RECORDS SUMMARY | 2024-12-01 11:30 | XMS_ITS | Clinical Summary ---
Author Organization [facility] Address [address] [place] [address] Care Team Providers Care Refrigerated Company Driver Name Role Phone Sendy Conley MD Primary Care Provider [phone] Allergies Active Allergy Reactions Criticality Noted Date Comments Sulfacetamide Sodium 08/21/2005 Medications multivitamin (MULTIPLE VITAMINS ORAL) Take 1 tablet by mouth 1 (one) time each day. Active POTASSIUM ORAL Take 1 tablet by mouth 1 (one) time each day. Active ALPRAZolam (XANAX) 0.25 mg tablet Take 1 tablet (0.25 mg total) by mouth 1 (one) time each day if needed for anxiety. Max Daily Amount: 0.25 mg 2 Active atenoloL (TENORMIN) 25 mg tablet Take 1 tablet (25 mg total) by mouth 1 (one) time each day. 2 Active citalopram (CeleXA) 20 mg tablet Take 1 tablet (20 mg total) by mouth 1 (one) time each day. 2 Active fluticasone propionate (FLONASE) 50 mcg/actuation nasal spray Administer 2 sprays into each nostril 1 (one) time each day. 2 Active simvastatin (ZOCOR) 40 mg tablet Take 1 tablet (40 mg total) by mouth at bedtime. 2 Active triamterene-hyd roCHLOROthiazid e (MAXZIDE) 75-50 mg per tablet Take 1 tablet by mouth 1 (one) time each day. 2 Active Active Problems Problem Noted Date Diagnosed Date Osteopenia 11/29/2021 Obesity (BMI 30.0-34.9) 12/18/2020 Restless legs syndrome 05/22/2020 Subclinical hypothyroidism 05/02/2016 Overview (09/24/2024): TSH 4.21, 05/01/2016. Adjustment disorder with mixed anxiety and depre ssed mood 01/16/2016 CKD (chronic kidney disease) stage 3, GFR 30-59 ml/min 05/16/2015 Diverticulosis 04/21/2013 Overview (09/24/2024): Seen at colonoscopy along with internal and external hemorrhoids 02/18/2013 Benign neoplasm of colon 06/08/2007 Overview (09/24/2024): tubular adenoma of colon, Dr. Zavaleta, 06/02/2007, follow-up recommended in 5 years Anxiety state 08/21/2005 Essential hypertension, benign 08/21/2005 Pure hypercholesterolemia 08/21/2005 Immunizations Name Administration Dates Next Due Influenza trivalent, 0.5mL ( Fluzone High-dose) 65yo and older 08/31/2021,08/09/2020,07/10/2017,07/09 Influenza trivalent, with pr eservative (Fluzone; Afluria) 6mo and older 07/19/2015,07/12/2014,09/09/2011,10/17,11/14/2008,11/10/2007,08/27/2006 Influenza, Unspecified 07/19/2019,07/23/2018 Moderna SARS-CoV-2 COVID-19, mRNA, LNP-S, preservative free 07/23/2021 Pneumococcal conjugate 13 va lent (Prevnar 13, PCV13) 2mo and older 05/01/2016 Pneumococcal polysaccharide 23 valent (Pneumovax 23) 2yo and older 07/12/2014 Td Tetanus diptheria (Tdvax) 7yo and older 04/05/2017 Tdap Tetanus diptheria acell ular pertussis (Boostrix; Adacel) 7yo and older 02/16/2007 Zoster Live 07/19/2015 Surgical History Surgery Date Site/Laterality Comments OTHER SURGICAL HISTORY 1960 PROCEDURE: IA UNLISTED PROCEDURE EXTRAOCULAR MUSCLE OTHER SURGICAL HISTORY 1970 PROCEDURE: IA REPAIR RECTOCELE SEPARATE PROCEDURE TONSILLECTOMY 1951 PROCEDURE: HISTORICAL TONSILLECTOMY COLONOSCOPY 02/18/13 PROCEDURE: HISTORICAL COLONOSCOPY MULTIPLE TOOTH EXTRACTIONS PROCEDURE: HISTORICAL DENTAL EXTRACTION OTHER SURGICAL HISTORY 11/2018 PROCEDURE: MAMMOGRAM Medical History Medical History Date Comments Essential hypertension, benign D X:Essential hypertension, benign Pure hypercholesterolemia DX:Pur e hypercholesterolemia 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/13/2012 DX:Otitis ladle liner a History of malignant neoplas m of large intestine DX:History of malignant neop lasm of large intestine Restless legs syndrome 05/22/2020 DX:Restle ss legs syndrome Family History Medical History Relation Name Comments Other: biologic father unknown Father Breast cancer Maternal Grandmother 80's Other: HIP FRACTURE Mother age 90, heart problems Colon cancer Neg Hx Ovarian cancer Neg Hx Relation Name Status Comments Father Maternal Grandmother 80's Mother Alive Social History Tobacco Use Types Packs/Day Years Used Date Smoking Tobacco: Former Cigarettes 1 18 0 09/29/1967 - 09/29/1985 Smokeless Tobacco: Former Alcohol Use Standard Drinks/Week Comments Yes 0 (1 standard drink = 0.6 oz pur e alcohol) Comments Unknown Sex and Gender Information Value Date Recorded Sex Assigned at Not on file Legal Sex Female 10:17 PM EST Gender Identity Not on file Sexual Orientation Not on file Obstetrics History Last Filed Vital Signs Vital Sign Reading Time Taken Comments Blood Pressure 124/71 11/06/2022 8:16 AM EST Pulse 93 11/06/2022 8:16 AM EST Temperature - - Respiratory Rate - - Oxygen Saturation - - Inhaled Oxygen Concentration - - Weight 73.8 kg (162 lb 12.8 oz) 11/06/2022 8:16 AM EST Height 154.9 cm (5' 1 ) 11/06/2022 8:16 AM EST Body Mass Index 30.76 11/06/2022 8:16 AM EST Plan of Treatment Health Maintenance Due Date Last Done Comments Zoster Vaccines (2 of 3) 09/13/2015 07/19/2015 Depression Screening 09/07/2022 Falls Risk Assessment 09/07/2022 Social Influencers of Health Screening 09/07/2022 Hypertension/CHF/CAD Annual BMP Blood Test 03/18/2023 03/18/2022 RSV Immunization Patients 60+ Years Old (1 - 1-dose 75+ series) 2023 COVID-19 Vaccine (4 - season) 2024 07/23/2021, 01/10/2021, 12/13/2020 Influenza Vaccine (#1) 2024 , 08/09/2020, 07/19/2019, Additional history exists Cholesterol Screening (Lipid Panel) 02/18/2027 02/18/2022 DTaP,Tdap,and Td Vaccines (3 - Td or Tdap) 04/05/2027 04/05/2017, 02/16/2007 Osteoporosis Screening (Bone Density Screening) 11/30/2031 11/29/2021, 11/27/2017 Hepatitis C Screening Completed 08/04/2013 Pneumococcal Vaccine: 50+ Years Completed 05/01/2016, 07/12/2014 Breast Cancer Screening Discontinued 07/21/2021, 12/17 HIB Vaccines Aged Out No longer eligi ble based on patient's age to complete this topic HPV Vaccines Aged Out No longer eligi ble based on patient's age to complete this topic Hepatitis A Vaccines Aged Out No long er eligible based on patient's age to complete this topic Hepatitis B Vaccines Aged Out No long er eligible based on patient's age to complete this topic IPV Vaccines Aged Out No longer eligi ble based on patient's age to complete this topic MMR Vaccines Aged Out No longer eligi ble based on patient's age to complete this topic Meningococcal ACWY Vaccine Aged Out N o longer eligible based on patient's age to complete this topic Meningococcal B Vacine Aged Out No lo nger eligible based on patient's age to complete this topic RSV Immunization Patients Under 20 months Aged Out No longer eligible based on patient's age to complete this topic Varicella Vaccines Aged Out No longer eligible based on patient's age to complete this topic Procedures Procedure Name Priority Date/Time Associated Diagnosis Comments HM ANNUAL BMP BLOOD TEST Routine 03/18/2022 LIPID PANEL Routine 02/18/2022 DXA BONE DENSITY STUDY 1+ SITS AXIAL SKEL Routine 11/29/2021 10:20 AM EST Other specified disorders of bone density and structure, unspecified site SCREENING MAMMOGRAPHY BI 2-VIEW BREAST INC CAD Routine 07/21/2021 9:44 AM EDT Encounter for screening mammogram for malignant neoplasm of breast HEPATITIS C SCREENING Routine 08/04/2013 from Last 3 Months or Most Recently Relevant to Health Maintenance Results * Annual BMP Blood Test (03/18/2022) Annual BMP Blood Test Abstracted Historical Provider MD HEALTH MAINTENANCE Final Result * (ABNORMAL) Lipid panel (02/18/2022) LDL/HDL Ratio 3 0 - 4 Triglycerides 172(A) 0 - 150 mg/dL Cholesterol 214(A) 0 - 200 mg/dL HDL 63 >=40 mg/dL LDL Cholesterol 117(A) 0 - 100 mg/dL Blood Venous blood specimen / Unknown Historical Provider LAB BLOOD ORDERABLES Lety l Result * DXA BONE DENSITY STUDY 1+ SITS AXIAL SKEL (11/29/2021 10:20 AM EST) Anatomical Region Laterality Modality Bone Densitometr y 12/18/2020 10:2 0 AM EDT Narrative 11/29/2021 10:39 AM EST BONE DENSITY (DEXA) ? Lumbar Spine T-score is -0.6. ?? (SD relative to 20-29 y/o adult) Z-score is 1.7. ??(SD relative to age matched peers) This is considered normal by WHO criteria. Left Hip T-score is -1.3. Z-score is 0.7. This is considered osteopenia by WHO criteria. IMPRESSION: This patient is considered have osteopenia by WHO criteria. This patient has a 9.7% risk of major osteoporotic fracture and a 1.4% risk of hip fracture over the next 10 years. (World Health Organization Fracture Risk Assessment) [facility] Department of Internal Medicine recommends using National Osteoporosis Foundation (NOF) guidelines in treatment decisions related to osteoporosis. NOF guidelines suggest considering treatment for postmenopausal women and men aged 50 or older presenting with the following: History of hip or vertebral fracture. T-score = -2.5 (DXA) at the femoral neck, total hip, or spine, after appropriate evaluation to exclude secondary causes. Low bone mass (T-score between -1.0 and -2.5 at the femoral neck or spine) AND a 10-year probability of a hip fracture = 3% OR a 10-year probability of a major osteoporosis-related fracture = 20% based on the [place]-adapted WHO algorithm Please note that all treatment decisions require clinical judgment and consideration of individual patient factors, including patient preferences, co-morbidities, previous drug use, risk factors not captured in the FRAX model (e.g., frailty, falls, vitamin D deficiency, increased bone turnover, interval significant decline in bone density) and possible under- or over-estimation of fracture risk by FRAX. Optional alternative screening schedule based on [place]., [facility] October 17, 2011 for patients with osteopenia (based on hip BMD T-score) is as follows: * ??advanced osteopenia (T scores -2.00 to -2.49), BMD testing every year * ??moderate osteopenia (T scores -1.50 to -1.99), BMD testing every 5 years mild osteopenia or normal BMD (T scores -1.50 and higher), BMD testing every 15 years Procedure Note Laverne Jones MD - 09/17/2022 BONE DENSITY (DEXA) Lumbar Spine T-score is -0.6. (SD relative to 20-29 y/o adult) Z-score is 1.7. (SD relative to age matched peers) This is considered normal by WHO criteria. Left Hip T-score is -1.3. Z-score is 0.7. This is considered osteopenia by WHO criteria. IMPRESSION: This patient is considered have osteopenia by WHO criteria. This patienthas a 9.7% risk of major osteoporotic fracture and a 1.4% risk of hip fracture over the next10 years. (World Health Organization Fracture Risk Assessment) [facility] Department of Internal Medicine recommendsusing National Osteoporosis Foundation (NOF) guidelines in treatment decisions related toosteoporosis. NOF guidelines suggest considering treatment for postmenopausal women and menaged 50 or older presenting with the following: History of hip or vertebral fracture. T-score = -2.5 (DXA) at the femoral neck, total hip, or spine, afterappropriate evaluation to exclude secondary causes. Low bone mass (T-score between -1.0 and -2.5 at the femoral neck or spine)AND a 10-year probability of a hip fracture = 3% OR a 10-year probability of a majorosteoporosis-related fracture = 20% based on the [place]-adapted WHO algorithm Please note that all treatment decisions require clinical judgment andconsideration of individual patient factors, including patient preferences, co- morbidities,previous drug use, risk factors not captured in the FRAX model (e.g., frailty, falls, vitaminD deficiency, increased bone turnover, interval significant decline in bone density) andpossible under- or over-estimation of fracture risk by FRAX. Optional alternative screening schedule based on [place] al., NEJMJanuary 2011 for patients with osteopenia (based on hip BMD T-score) is as follows: * advanced osteopenia (T scores -2.00 to -2.49), BMD testing every year * moderate osteopenia (T scores -1.50 to -1.99), BMD testing every 5years mild osteopenia or normal BMD (T scores -1.50 and higher), BMD testingevery 15 years Sarah VAUGHAN IMG DXA PROCEDURES Final Resu lt * SCREENING MAMMOGRAPHY BI 2-VIEW BREAST INC CAD (07/21/2021 9:44 AM EDT) Anatomical Region Laterality Modality Radiographic Sonia ging 07/18/2021 9:45 AM EDT Narrative 07/21/2021 4:32 PM EDT This is a summary report. The complete report is available in the patient's medical record. If you cannot access the medical record, please contact the sending organization for a detailed fax or copy. Exam: Screening mammogram Findings: Digital bilateral full-field screening mammography is performed with tomosynthesis and interpreted with the aid of computer-aided detection. ??Comparison is made with 12/17/2018. Breast parenchyma is composed of scattered fibroglandular densities. ??No new suspicious mass, architectural distortion, or suspicious calcifications. Impression: No mammographic evidence of malignancy. BI-RADS 1 - negative Procedure Note Cassandra Roberto MD - 09/17/2022 This is a summary report. The complete report is available in thepatient's medical record. If you cannot access the medical record, pleasecontact the sending organization for a detailed fax or copy. Exam: Screening mammogram Findings: Digital bilateral full-field screening mammography is performedwith tomosynthesis and interpreted with the aid of computer-aideddetection. Comparison is made with 12/17/2018. Breast parenchyma is composed of scattered fibroglandular densities. Nonew suspicious mass, architectural distortion, or suspiciouscalcifications. Impression: No mammographic evidence of malignancy. BI-RADS 1 - negative Sendy Conley MD IMG XR PROCEDURES Final Result * Hepatitis C Screening (08/04/2013) Hepatitis C Screening Abstracted Historical Provider HEALTH MAINTENANCE Final Result from Last 3 Months or Most Recently Relevant to Health Maintenance Care Teams Refrigerated Company Driver Relationship Specialty Start Date End Date Sendy Conley MD [address] [place] [address] PCP - General Internal Medicine 04/24/20
--- OUTSIDE RECORDS SUMMARY | 2024-12-01 11:30 | XMS_ITS | Patient Health Record ---
Author Organization [facility] Address [address] [facility] [place] [address] Care Team Providers Care Pitching Coach Name Role Phone Chapito Mena MD Primary Care Provider Unavail able Black, Maribel Unavailable [phone] Allergies Allergen (clinical drug ingredient) Drug/Non Drug Allergy documented on EMR Reaction Allergy Type Onset Date Status sulfamethoxazole / trimethoprim Bactrim Unknown Drug Allergy Active Reason For Referral No Information Medications Medication SIG (Take, Route, Frequency, Duration) Notes Start Date End Date Status Aspirin 81 MG 1 tablet Orally Once a day for 30 day(s) Active Triamterene-HCTZ 37.5-25 MG 1 tablet in the morning Orally Once a day for 30 day(s) Active CeleXA 20 MG 1 tablet Orally Once a day for 30 day(s) Active Atenolol 25 MG 1 tablet Orally Once a day for 30 day(s) Active Simvastatin 40 MG 1 tablet every eveni ng Orally Once a day for 30 day(s) Active Social History Tobacco use other than smoking: Question Answer Notes Are you an other tobacco user? No Problems No Known Problems Plan Of Treatment Pending Test Test Name Order Date [id number] NAIL, 6 OR MORE 04/29/2014 [id number] NAIL, 6 OR MORE 08/31/2015 [id number] NAIL, 6 OR MORE 02/29/2016 [id number] NAIL, 6 OR MORE 09/05/2016 [id number] Plate 04/29/2014 [id number] Plate Each Additional 09/2013 Insurance Providers Payer Name Payer Address Payer Phone Subscriber Number Group Number Insured Name Patient Relationship to Insured Coverage Start Date Coverage End Date [employer] Medicare [id number] [address] [address] [place] [address] [id number] Geraldine Best Self - patient is the insured Medical (General) History Medical History History ICD Code anxiety high blood pressure scarlet fever measles chicken pox Mumps Surgical History Surgery Date(Month/Year) eye surgery
== END 2024-12-01 10:28 | disposition home or self-care (01) ==
PROVIDERS: PCP Internal Medicine
DX: I10 Essential (primary) hypertension (principal); J32.9 Chronic sinusitis, unspecified; R51.9 Headache, unspecified

== ENCOUNTER → 2024-12-01 09:55 | Outpatient (BNVA) | payer MEDICARE, SELFPAY | PROVIDERS: PCP Internal Medicine | DX: I10 Essential (primary) hypertension (principal); J32.9 Chronic sinusitis, unspecified; R51.9 Headache, unspecified | CPT/HCPCS: 99212 ==

== ENCOUNTER 2025-02-16 09:35 | Outpatient (AMB) | payer MEDICARE, SELFPAY ==
--- NOTE | 2025-02-16 09:38 | MHC.PC.OV ---
Vital Signs 02/16/25 09:39 Height 5 ft 1 in Weight 153 lb BMI 28.9 BP 122/62 Blood Pressure Location Lt brachial Position Sitting Pulse 65 Pulse Source Pulse Oximeter Pulse Oximetry (%) 99 Oxygen Delivery Method Room Air Intake Visit Reasons: 6mth f/u Allergies Sulfa (Sulfonamide Antibiotics) Allergy (Severe, Verified 02/16/25 09:40) Anaphylaxis atenolol Adverse Reaction (Intermediate, Verified 02/16/25 09:40) bradycardia pantoprazole Adverse Reaction (Intermediate, Verified 02/16/25 09:40) Diarrhea Medication List - Last Reconciled 02/16/25 by Jesenia Winkler MD alprazolam 0.5 mg PO BEDTIME PRN ascorbate calcium (vitamin C) 500 mg PO DAILY blood pressure monitor (Blood Pressure Kit) As directed cetirizine (All Day Allergy (cetirizine)) 10 mg PO DAILY cholecalciferol (vitamin D3) 25 mcg PO DAILY citalopram 20 mg PO DAILY cyclobenzaprine 10 mg PO BEDTIME famotidine (Pepcid) 40 mg PO BEDTIME lisinopril 10 mg PO DAILY 90 days meloxicam 15 mg PO DAILY polydextrose (Childrens Fiber Gummy Bear) grams PO simvastatin 40 mg PO QPM triamcinolone acetonide 0.5% 1 appl topical BID triamterene-hydrochlorothiazid 75-50 mg 1 tab PO DAILY 90 days zinc gluconate 50 mg PO DAILY [zinc magnesium and calcium PO .QD] Tobacco use date assessed: 12/01/24 Fall risk assessment: No Falls in past year Last assessed Fall Risk: 02/16/25 Dental Screening Dental Screen Date: 12/01/24 [facility] Medical History Colon cancer screening Anxiety HTN (hypertension) GERD (gastroesophageal reflux disease) Surgical History H/O colonoscopy Hx of tonsillectomy H/O eye surgery H/O rectocele repair Family History Father No problems noted. Mother No problems noted. Sister No problems noted. Daughter No problems noted. Daughter No problems noted. Social History Housing: House Alcohol intake: current Alcohol intake frequency: 0-2 drinks per day Comment: Q day glass of wine Patient Tobacco Use Status: Former Tobacco user Tobacco use type: Cigarette Years Smoked: quit 1984 e-Cigarette/Vaping Use: Never Used Second Hand Smoke Exposure: No service: No Current occupational status: retired Cognitive needs: No Hearing needs: No Vision needs: Yes Questionnaire PHQ-9 Over the last 2 weeks, how often have you been bothered by any of the following problems? 1. Little interest or pleasure in doing things: not at all 2. Feeling down, depressed, or hopeless: not at all 3. Trouble falling or staying asleep, or sleeping too much: not at all 4. Feeling tired or having little energy: not at all 5. Poor appetite or overeating: not at all 6. Feeling bad about yourself - or that you are a failure or have let yourself or your family down: not at all 7. Trouble concentrating on things, such as reading the newspaper or watching television: not at all 8. Moving or speaking so slowly that other people could have noticed. Or the opposite - being so fidgety or restless that you have been moving around a lot more than usual: not at all 9. Thoughts that you would be better off or of hurting yourself in some way: not at all Total score: 0 Depression Screening Interpretation: Negative Depression Screening Done: Yes Source: Developed by Drs. Gopi Rodríguez, Estefani Diggs, Juancho Rivero and colleagues, with an educational marquis from [employer]. Thrive Questionnaire Date Thrive assessed: 02/09/25 I am a: Patient What is your living situation today?: I have a steady place to live Within the past 12 months, did the food you bought not last and you didn't have the money to get more?: Never true Within the past 12 months, did you worry whether your food would run out before you got money to buy more?: Never true Do you have trouble paying for medicines?: No Do you have trouble getting transportation to medical appointments?: No Do you have trouble paying your heating and electricity bill?: No Do you have trouble taking care of your child, family member or friend?: No Do you have trouble with day-to-day activities such as bathing, preparing meals, shopping, managing finances, etc.?: No Are you currently unemployed and looking for a job?: No Are you interested in more education?: No Please select the resources that you would like help with: None Currently or been in a relationship where the following occur: No concerns reported THRIVE Score: 0 AUDIT C Alcohol Use Questionnaire (AUDIT-C) 1. How often do you have a drink containing alcohol?: 4 or more times a week 2. How many drinks containing alcohol do you have on a typical day when you are drinking?: 1 or 2 3. How often do you have six or more drinks on one occasion?: Weekly Total Score: 7 WILLY-7 AMB Questionnaire WILLY-7 Date WILLY - 7 assessed: 02/16/25 Feeling nervous, anxious, or on edge: 1 = Several days Not being able to stop or control worryin = Not at all Worrying too much about different things: 1 = Several days Trouble relaxin = Several days Being so restless that it is hard to sit still: 1 = Several days Becoming easily annoyed or irritable: 1 = Several days Feeling afraid as if something awful might happen: 1 = Several days Total WILLY-7 score (0-4 normal; 5-9 mild; 10-14 moderate; 15-21 severe): 6 Source: Developed by Drs. Gopi Rodríguez, Estefani Diggs, Juancho Rivero and colleagues, with an educational marquis from [employer]. WILLY-7 Assessment Billing WILLY-7 Assessment Tool: WILLY-7 Assessment 23842 Physical exam (Primary Care) Vital Signs: Last Vital Signs Pulse 65 02/16/25 09:39 BP 122/62 02/16/25 09:39 Pulse Ox 99 02/16/25 09:39 Oxygen Delivery Method Room Air 02/16/25 09:39 BMI result Body Mass Index 28.9 Tobacco/Smoking Status: Tobacco use Status Tobacco use date assessed 12/01/24 02/16/25 09:46 Patient Tobacco Use Status Former Tobacco user 02/16/25 09:46 Tobacco use type Cigarette 02/16/25 09:46 e-Cigarette/Vaping Use Never Used 02/16/25 09:46 PHQ-9: PHQ-9 Score PHQ-9: Total score 0 02/16/25 09:54 Depression Screening Interpretation: Negative Thrive Assessment: Date of Thrive Assessment Date Thrive assessed 02/09/25 02/16/25 09:46 Currently or been in a relationship where the following occur: No concerns reported Const General: alert; No acute distress Eyes Conjunctivae: conjunctivae normal Resp Auscultation: clear to auscultation bilaterally Cardio Rate: regular rate Rhythm: regular rhythm GI Inspection: Yes normal to inspection Extrem General: Yes normal to inspection and No edema Coding Level of Care Code Est Pt Level 4 (23043) Complex EM visit Add On G2211 Diagnoses Primary hypertension I10 Hypertension type: primary hypertension Hypercholesterolemia E78.00 Generalized anxiety disorder F41.1 Acquired hypothyroidism E03.9 Hypothyroidism type: acquired Gastroesophageal reflux disease without esophagitis K21.9 Esophagitis presence: without esophagitis Renal calculi N20.0 Osteopenia of multiple sites M85.89 Osteopenia location: multiple sites Diarrhea, travelers' A09 Additional Codes WILLY-7 Assessment Billing - WILLY-7 Assessment Tool: WILLY-7 Assessment 50545 ([id number]) Assessment & Plan Assessment & Plan (1) Hypertension: Code(s): I10 - Essential (primary) hypertension Category: Medical Qualifiers: Hypertension type: primary hypertension Qualified Code(s): I10 - Essential (primary) hypertension Plan: Continue with blood pressure medication. Decrease salt intake and exercise on lisinopril 10 mg once a day and triamterene hydrochlorothiazide once a day June 2024 last blood work (2) Hypercholesterolemia: Code(s): E78.00 - Pure hypercholesterolemia, unspecified Category: Medical Plan: Avoid fried foods, chicken skin, eggs, butter margarine, pastries and meat. Be it pork or beef they have a lot of cholesterol on simvastatin 40 mg once a day (3) Generalized anxiety disorder: Comment: decline counselling Code(s): F41.1 - Generalized anxiety disorder Category: Medical Plan: Patient on citalopram and alprazolam as needed (4) Hypothyroidism: Code(s): E03.9 - Hypothyroidism, unspecified Category: Medical Qualifiers: Hypothyroidism type: acquired Qualified Code(s): E03.9 - Hypothyroidism, unspecified Plan: Continue with monitoring of the thyroid blood work. (5) GERD (gastroesophageal reflux disease): Code(s): K21.9 - Gastro-esophageal reflux disease without esophagitis Category: Medical Qualifiers: Esophagitis presence: without esophagitis Qualified Code(s): K21.9 - Gastro-esophageal reflux disease without esophagitis Plan: Avoid the foods that causes that usually spicy foods, tomato products, juices, coffee, soda and foods that your sensitive to. After eating do not lie down, allow 3-4 hours before in lie down. And keep the head of bed above 30 degrees to avoid the acid from going up. (6) Renal calculi: Comment: Left upper pole April 2023 2 mm Code(s): N20.0 - Calculus of kidney Category: Medical Plan: Keep well hydrated (7) Osteopenia: Comment: 2021 Code(s): M85.80 - Other specified disorders of bone density and structure, unspecified site Category: Medical Qualifiers: Osteopenia location: multiple sites Qualified Code(s): M85.89 - Other specified disorders of bone density and structure, multiple sites Plan: Discussed about repeating bone density (8) Diarrhea, travelers': Code(s): A09 - Infectious gastroenteritis and colitis, unspecified Category: Medical Plan: concern on dehydration Plan History of Present Illness The patient is a 74-year-old female presenting with sinus problems. She reports a history of sinusitis, for which she received prednisone and amoxicillin. Following a recent trip to [facility] in December 2024, the patient reports gastrointestinal issues, which have persisted post-travel, indicating a possible infection. She is concurrently managing several chronic conditions, including essential hypertension, hypercholesterolemia, generalized anxiety disorder, hypothyroidism, GERD, and nephrolithiasis. Her blood work, last taken in July, confirmed mild leukemia with normal counts of electrolytes and normal renal function. She experienced back pain in August 2024. Current medications include lisinopril for blood pressure and simvastatin for cholesterol. Lifestyle-related factors such as limited mobility and potential dehydration from a concurrent diuretic treatment were discussed. There is concern about possible viral or bacterial infection symptoms, electrolyte imbalance due to diuretic effects, and ongoing health monitoring due to a background of mild leukemia. Health Maintenance - Mammogram is due, but declined by the patient. - Reminder about maintaining bone density; potential for repeat evaluation given a decrease noted in November 2024. - Discussed hydration and monitoring electrolyte levels due to use of diuretics and recent episodes of diarrhea. - Reiterated importance of vitamin D and calcium intake, especially given history of nephrolithiasis. - Reinforced the need for thyroid monitoring. - Encouraged walking and stretching to improve mobility and joint health. - Ensured patient adherence to simvastatin 40 mg once daily for hypercholesterolemia and lisinopril 10 mg twice daily for hypertension. Social History - Diet: Patient asserts she is eating healthily. - Exercise: Decreased physical activity is noted; patient has limited mobility, attempting short walks and daily stretches. - Travel: Recently traveled to [facility]; subsequent onset of gastrointestinal symptoms post-trip. - Hydration discussed, patient encouraged to consume 60-80 ounces of water daily. 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 Review of Systems - General: Denies fever. - HEENT: Reports sinus issues. - Cardiovascular: Denies chest pain. - Gastrointestinal: Reports diarrhea post-travel. Denies nausea, vomiting. - Musculoskeletal: Reports back pain in August 2024; also reports leg cramps, possibly related to diuretic effects. - Neurological: Reports nighttime jerks; denies sleep disturbance, gets approximately 8 hours of sleep. - Psychiatric: Reports generalized anxiety disorder; history of treatment with alprazolam as needed. Physical Exam Results - Labs: Previous blood work in July showed mild leukemia with normal blood count and normal electrolytes. - Imaging: Chest X-ray requested post-back pain was negative. Plan I have reinforced the use of prednisone and amoxicillin for her sinus infection, along with monitoring for further complications. Continued use of lisinopril and simvastatin for hypertension and cholesterol, respectively, ensures sustained control over these conditions with regular monitoring planned. I maintain awareness regarding her mild leukemia, encouraging vigilance despite normal counts in July. Given her reported diarrhea post-travel, further stool-based diagnostic investigations were advised, as well as meticulous management of the diuretic regimen to prevent dehydration and electrolyte imbalances. Discussions also covered GERD management through adequate hydration and lifestyle modification alongside omeprazole usage. Potential mammographic and bone density screenings were reviewed, given their importance in ongoing preventive health strategies. For her general health, I have recommended she stays hydrated and included lifestyle adjustments to bolster her mobility and prevent further health complications. Patient was informed and verbally consented to the use of an ambient scribe for clinic note documentation during this visit. Discussion Notes I reviewed potential infection sources related to her post-travel symptoms, indicating stool testing could help with definitive identification and treatment planning, including the potential use of antibiotics like ciprofloxacin. The conversation included the continued administration of lisinopril and simvastatin, noting the benefits these medications offer for blood pressure and cholesterol management. Her lab results for leukemia were discussed; reassurance was provided around her normal counts. Concerns about electrolyte imbalance due to diuretics were addressed; strategies to alleviate this through improved hydration were planned. Preventive screenings like mammograms were reviewed, suggesting adherence would help in early detection. Emphasis was placed on refining her routine by incorporating movement, and thyroid monitoring was encouraged. Patient Instructions - Take all medications as prescribed, including lisinopril and simvastatin. - Continue prednisone and amoxicillin for sinus symptoms as instructed. - Drink plenty of fluids regularly throughout the day to stay hydrated. - Try to incorporate daily physical activity, like short walks and stretching. - Monitor for any unusual symptoms following your trip, and report them. - Attend any recommended follow-up appointments for further blood work or examinations. - Discuss potential dietary sources of calcium and vitamin D with a game attendant to prevent kidney stones. Orders: Orders Leukocytes Stool Qualitative Today A09 - Infectious gastroenteritis and colitis, unspecified Comprehensive Met. Panel Today G25.81 - Restless legs syndrome Complete Blood Count Auto Diff Today G25.81 - Restless legs syndrome Magnesium Today G25.81 - Restless legs syndrome Lipid Panel Today E78.00 - Pure hypercholesterolemia, unspecified Ova and Parasite Today A09 - Infectious gastroenteritis and colitis, unspecified Free T4 (Free Thyroxine) Today G25.81 - Restless legs syndrome Thyroid Stimulating Hormone Today G25.81 - Restless legs syndrome Hemoglobin A1c Today E78.00 - Pure hypercholesterolemia, unspecified Medications: New azithromycin (Zithromax) 1,000 mg (2 x 500 mg) PO ONCE 2 tabs 0RF A09 - Infectious gastroenteritis and colitis, unspecified Changed From citalopram 40 mg PO DAILY 90 days 90 tabs 1RF F41.1 - Generalized anxiety disorder To citalopram 20 mg PO DAILY F41.1 - Generalized anxiety disorder
[2025-02-16 09:39] VITALS: BP 122/62; PULSE 65; O2SAT 99; BMI 28.9
--- OUTSIDE RECORDS SUMMARY | 2025-02-16 10:50 | XMS_ITS ---
Author Organization [facility] Address [address] [place] [address] Care Team Providers Care Otorhinolaryngologist Name Role Phone Po Jesenia JACKSON Primary Care Provider Gopi Nolan [phone] REASON FOR VISIT screening, hx polyps Problems Problem Type SNOMED Code ICD Code Onset Dates Problem Status W/U Status Risk Notes Problem Diverticular disease of colon (332066982) Diverticulosis of large intestine without perforation or abscess without bleeding (K57.30) Active confirmed Encounters Encounter Location Date Provider Diagnosis [facility] [address] [place] [phone] 03/01/2024 Gopi Zavaleta Encounter for scre ening [...] Notes * MALISSA TABARESDOB:1950 (74 yo F)Acc No.[id number]:03/01/2024 COLON WITH MAC Patient:?MALISSA TABARES Provider:?Gopi Zavaleta MD :1950???Age:73 Y???Sex:Female D ate:03/01/2024 Address:[facility] Pcp:Jesenia Winkler MD Subjective: * Chief Complaints: * ???1. Screening, hx polyps. * Medical History:? Objective: * Vitals:? Assessment: * Assessment: 1.?Encounter for screening c olonoscopy - Z12.11 (Primary)???2.?Colon polyps - K63.5???3.?Diverticulosis of large intestine without perforation or abscess without bleeding - K57.30???4.?Internal hemorrhoids - K64.8??? Plan: * Treatment: * Procedure Codes:?41542 COLON OSCOPY AND BIOPSY, Modifiers: PT * * The named appointment provid er may or may not be the originator of this progress note, and it is not deemed complete until electronically signed by the appointment provider. Sign off status: Pending * Provider:?Gopi Zavaleta MD Date:? 024 Generated for Savanna brown/Ophelia/eTransmitting on:?02/16/2025 10:50 AM EDT
--- OUTSIDE RECORDS SUMMARY | 2025-02-16 10:50 | XMS_ITS | Patient Health Record ---
Author Organization [facility] Address [address] [place] [address] Care Team Providers Care Nutrition Consultant Name Role Phone Jesenia Winkler MD Primary Care Provider Gopi Nolan Unavailable [phone] Allergies Allergen (clinical drug ingredient) Drug/Non Drug Allergy documented on EMR Reaction Allergy Type Onset Date Status Pollen Pollen Unknown Allergy Active Mold Unknown Allergy Active Substance with sulfonamide structure and antibacterial mechanism of action (substance) Sulfa (uncoded) Unknown Allergy Active Results Component Value Reference Range Notes Pathology (Not yet reviewed by provider) Interpretation: Performing Lab:[facility], [address] [place] [id number] Notes/Report: Name: Malissa Tabares Age/Sex: 73/F : 1950 Unit#: [id number] Attend Dr: Gopi Zavaleta Re03/01/24 Status : [facility] Location: [facility] Disch: SPEC : [id number] RECD : 03/01/24 STATUS: YAHAIRA SALCEDO NUM: [id number] DMITRI: 03/01/24-1010 [facility] DR: Gopi Zavaleta ENTERED: 03/01/24-11 41 SP [...] A. CEDS Copies To: Jesenia Winkler MD [address] [place] [address] [address] [place] [address] Gopi Zavaleta [address] [place] [address] [address] [place] [address] Signed (si gnature on file) Liane Cunningham [...] Status Risk Notes Problem Colon cancer screening (782693130) Colon cancer screening (Z12.11) Active confirmed Problem History of adenomatous polyp of colon (046512307) History of adenomatous polyp of colon (Z86.010) Active confirmed Problem History of polyp of colon (situation) (010828871) Personal history of colonic polyps (Z86.010) Active confirmed Problem Pre-procedure evaluation check (540197957) Encounter for other preprocedural examination (Z01.818) Active confirmed Problem Diverticulosis o f large intestine without perforation or abscess without bleeding (K57.30) Active confirmed Encounters Encounter Location Date Provider Diagnosis [facility] [place] [address] [place] [id number] 03/01/2024 Gopi Zavaleta Encounter for scre ening [...] hemorrhoids (ICD-10 - K64.8) Plan Of Treatment Pending Test Test Name Order Date Pathology 03/01/2024 Future Test Test Name Order Date COLONOSCOPY 10/14/2012 COLONOSCOPY 12/02/2023 Insurance Providers Payer Name Payer Address Payer Phone Subscriber Number Group Number Insured Name Patient Relationship to Insured Coverage Start Date Coverage End Date [facility] [address] [place] [address] [phone] [id number] Self - patient is the insured Medical (General) History Medical History History ICD Code Colonoscopy 05/18/2007-with removal of a tubular adenoma Anxiety HTN Hyperlipidemia Denies MD,DM,CVA,Lung disease,renal dise ase Negative screening colonoscopy in 2012 Surgical History Surgery Date(Month/Year) Rectocele surgery Left Eye surgery for lazy eye
--- OUTSIDE RECORDS SUMMARY | 2025-02-16 10:51 | XMS_ITS | Patient Health Record ---
Author Organization [facility] Address [address] [facility] [place] [address] Care Team Providers Care Handbag Operator Name Role Phone Chapito Mena MD Primary Care Provider Unavail able Black, Maribel Unavailable [phone] Allergies Allergen (clinical drug ingredient) Drug/Non Drug [...] Treatment Pending Test Test Name Order Date [id number] NAIL, 6 OR MORE 04/29/2014 [id number] NAIL, 6 OR MORE 08/31/2015 89795-[id number] NAIL, 6 OR MORE 02/29/2016 [id number] NAIL, 6 OR MORE 09/05/2016 79234-Uwcohnee Plate 04/29/2014 60531-Yvmrofwo Plate Each Additional 09/2013 Insurance Providers Payer Name Payer Address Payer Phone Subscriber Number Group Number Insured Name Patient Relationship to Insured Coverage Start Date Coverage End Date [employer] Medicare [id number] [address] [address] [place] [address] [id number] Geraldine Best Self - patient is the insured Medical (General) History Medical History History ICD Code anxiety high blood pressure scarlet fever measles chicken pox Mumps Surgical History Surgery Date(Month/Year) eye surgery
--- OUTSIDE RECORDS SUMMARY | 2025-02-16 10:51 | XMS_ITS | Clinical Summary ---
Author Organization [facility] ity Address [address] [place] [address] Care Team Providers Care Junior Java Developer Name Role Phone Sendy Conley MD Primary Care Provider [phone] Allergies Active Allergy Reactions Criticality Noted Date [...] kidney disease) stage 3, GFR 30-59 ml/min ([facility] V24, [facility] V28) 05/16/2015 Diverticulosis 04/21/2013 Overview (09/24/2024): Seen at [...] Site/Laterality Comments OTHER SURGICAL HISTORY 1960 PROCEDURE: [place] UNLISTED PROCEDURE EXTRAOCULAR MUSCLE OTHER SURGICAL HISTORY 1970 PROCEDURE: [place] REPAIR RECTOCELE SEPARATE PROCEDURE TONSILLECTOMY 1951 PROCEDURE: HISTORICAL TONSILLECTOMY COLONOSCOPY 02/18/13 PROCEDURE: HISTORICAL COLONOSCOPY MULTIPLE TOOTH EXTRACTIONS PROCEDURE: HISTORICAL DENTAL EXTRACTION OTHER SURGICAL HISTORY 11/2018 PROCEDURE: MAMMOGRAM Medical History Medical History Date Comments Essential hypertension, benign D X:Essential hypertension, benign Pure hypercholesterolemia DX:Pur e hypercholesterolemia 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/13/2012 DX:Otitis spike maker a History of malignant neoplas m of [...] BMP Blood Test 03/18/2023 03/18/2022 RSV Immunization Adult Patients (1 - 1-dose 75+ series) 2023 COVID-19 Vaccine ( season) 2024 07/23/2021, 01/10/2021, 12/13/2020 Influenza Vaccine (Season Ended) 2025 08/31/2021, 08/09/2020, 07/19/2019, Additional history exists Cholesterol Screening [...] age to complete this topic Meningococcal B Vaccine Aged Out No l onger eligible based on patient's age to complete [...] (World Health Organization Fracture Risk Assessment) [facility] Department of Internal Medicine recommends [...] alternative screening schedule based on [place]., [facility] October 17, 2011 for patients [...] (World Health Organization Fracture Risk Assessment) [facility] Department of Internal Medicine recommendsusing [...] -1.50 and higher), BMD testingevery 15 years us Sarah VAUGHAN IMG DXA PROCEDURES Final Resu [...] Recently Relevant to Health Maintenance Care Teams Junior Java Developer Relationship Specialty Start Date End Date Sendy Conley MD [address] [place] [address] PCP - General Internal Medicine 04/24/20
--- OUTSIDE RECORDS SUMMARY | 2025-02-16 10:51 | XMS_ITS ---
Author Organization [facility] Address [address] [place] [address] Care Team Providers Care Histology Aide Name Role Phone Jesenia Winkler MD Primary Care Provider Gopi Nolan [phone] Allergies Allergen (clinical drug ingredient) Drug/Non Drug [...] Status Risk Notes Problem Colon cancer screening (876530434) Colon cancer screening (Z12.11) Active confirmed Problem History of polyp of colon (situation) (751782804) Personal history of colonic polyps (Z86.010) Active confirmed Problem History of adenomatous polyp of colon (204511568) History of adenomatous polyp of colon (Z86.010) Active confirmed Problem Pre-procedure evaluation check (176032565) Encounter for other preprocedural examination (Z01.818) Active confirmed Vital Signs Temperature 97.4 degrees Fahrenheit 12/02/19 24 Blood pressure systolic 00 mm Hg 12/02/19 24 Blood pressure diastolic 00 mm Hg 024 Height 62 in 12/02/2023 Weight 159 lbs 12/02/2023 BMI 29.08 kg/m2 12/02/2023 Encounters Encounter Location Date Provider Diagnosis [facility] [address] [place] [address] 12/02/2023 Gopi Zavaleta Colon cancer screeni ng [...] Notes * MALISSA TABARESDOB:1950 (73 yo F)Acc No.[id number]:12/02/2023 Progress Notes Patient:?MALISSA TABARES Provider:?Gopi Zavaleta MD :1950???Age:73 Y???Sex:Female D ate:12/02/2023 Address: [address] [id number] Pcp:Jesenia Winkler MD Subjective: * Chief Complaints: [...] points),?Points?3,?Interpretation?Positive.?Miscellaneous:?Marital status: . 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 ???Nonsmoker; 1 glass of wine with [...] Procedure Codes:?3017F COLOR ECTAL CA SCREEN DOC [id number] TOBACCO NON-SMRES1351 BP SCR NOT PRFRM REC REASON NOS * Preventive Medicine:? ??Counseling:?Care goal follow-up plan:?Above Normal BMI Follow-up?Giving encouragement to exercise,?BMI management provided?Yes.? ??Urinary Incontinence:?Urinary Incontinence?Assessment:?Present,?Plan of care documented:?Yes,?Type of plan of care:?Lifestyle interventions.? * Follow Up:?prn * * Sign off status: Completed true * Provider:?Gopi Zavaleta MD Date:? 024 Generated for Savanna brown/Ophelia/Lopez on:?02/16/2025 10:50 AM EDT History and Physical Notes * HPI (History [...]
== END 2025-02-16 10:16 | disposition home or self-care (01) ==
LOC: HO.HMCH 09:36
PROVIDERS: PCP Internal Medicine; Visit Provider Internal Medicine
DX: I10 Essential (primary) hypertension (principal); E78.00 Pure hypercholesterolemia, unspecified; F41.1 Generalized anxiety disorder; E03.9 Hypothyroidism, unspecified; K21.9 Gastro-esophageal reflux disease without esophagitis; N20.0 Calculus of kidney; M85.89 Other specified disorders of bone density and structure, multiple sites; A09 Infectious gastroenteritis and colitis, unspecified

== ENCOUNTER → 2025-02-16 09:35 | Outpatient (BNVA) | payer MEDICARE, SELFPAY | PROVIDERS: PCP Internal Medicine; Visit Provider Internal Medicine | DX: I10 Essential (primary) hypertension (principal); E78.00 Pure hypercholesterolemia, unspecified; F41.1 Generalized anxiety disorder; E03.9 Hypothyroidism, unspecified; K21.9 Gastro-esophageal reflux disease without esophagitis; N20.0 Calculus of kidney; M85.89 Other specified disorders of bone density and structure, multiple sites; G25.81 Restless legs syndrome | CPT/HCPCS: 96127; 99212 ==

== ENCOUNTER 2025-02-23 08:02 | Outpatient (REF) | payer MEDICARE, SELFPAY ==
--- OUTSIDE RECORDS SUMMARY | 2025-02-23 08:07 | XMS_ITS | Encounter Summary ---
Author Organization [facility] Address [address] [place] [address] Care Team Providers Care Reheater Helper Name Role Phone Chapito Mena MD Primary Care Provider Unavail able Sendy Conley MD Primary Care Provider [phone] [facility], Pcp Primary Care Provider Unavailabl e Reason for Visit * Reason Comments E-prescribe Rx Request Encounter Details Date Type Department Care Team Description 01/10/2020 Refill Adult Medicine [address] [address] Chapito Mena MD E-prescribe Rx Request Social History Tobacco Use Types Packs/Day Years Used Date Smoking Tobacco: Former Cigarettes 1 18 0 09/29/1967 - 09/29/1985 Smokeless Tobacco: Former Comments:quit over 30 years ago Alcohol Use Standard Drinks/Week Comments Yes 0 (1 standard drink = 0.6 oz pur e alcohol) 1 glass wine daily Sex Assigned at Date Recorded Not on file Job Start Date Occupation Industry Not on file Not on file Not on file documented as of this encounter Miscellaneous Notes * Telephone Encounter - Elida Antoine - 01/10/2020 1:41 PM EDT Lab Results Component Value Date NA 138 11/26/2019 K 3.6 11/26/2019 CO2 31 11/26/2019 CL 104 11/26/2019 BUN 16 11/26/2019 CREAT 0.94 11/26/2019 GLU 98 11/26/2019 CA 9.4 11/26/2019 GFR 59 11/26/2019 * Telephone Encounter - Radha Ifeanyi - 01/10/2020 11:20 AM EDT Patient would like script to be: E-PRESCRIBED/FAXED TO PHARMACY WHEN WAS THE PATIENT'S LAST APPOINTMENT IN ADULT MEDICINE? 11/26/19 WHEN WAS THE LAST TIME THE PATIENT SAW THEIR PCP? 07/01/19 Does patient have an upcoming appointment? Yes 03/10/20 (THE MEDICATION REQUESTED IS ON THE MED LIST ABOVE) All of the medications requested were on the CURRENT MEDS list Did you check the Pharmacy information above?: YES Patient wants: 90 -day supply Is this a mail order prescription request ? NO If the refill is from a FAXED refill request what is the RX # listed on the fax? N/A Patients current insurance carrier is: Payor: WORKERS COMP / Plan: WORKERS COMPENSATION/[place] / Product Type: OTHER documented in this encounter Plan of Treatment Not on file documented as of this encounter Visit Diagnoses Not on filedocumented in this encounter Care Teams Reheater Helper Relationship Specialty Start Date End Date Chapito Mena MD PCP - General 04/05/1994 04/23/20 Sendy Conley MD [address] [place] [address] PCP - General Internal Medicine 04/24/20 10/24/[address] [address] PCP - General Internal Medicine 10/25/22 documented as of this encounter
[2025-02-23 10:18] LABS: MANUAL DIFF FLAG NO
[2025-02-23 10:25] LABS: Basophils Percent Auto 0.4 % (0-2); Eosinophils Absolute Auto 0.1 X10*3/uL (0.0-0.4); Hematocrit 39.1 % (37.0-47.0); Hemoglobin 13.1 g/dl (12.0-16.0); Imm Gran Abs Auto 0.01 X10*3/uL (0.00-0.03); Imm Gran Pct Auto 0.2 % (0.0-0.4); Lymphocytes Absolute Auto 1.4 X10*3/uL (1.2-4.9); Lymphocytes Percent Auto 26.7 % (20-40); Mean Corpuscular HGB Conc 33.5 g/dl (31.0-35.0); Mean Corpuscular Hemoglobin 30.5 pg (27.0-33.0); Mean Corpuscular Volume 91.1 fL (80.0-98.0); Mean Platelet Volume 10.7 fL (9.4-12.3); Monocytes Absolute Auto 0.5 X10*3/uL (0.1-1.2); Monocytes Percent Auto 9.4 % (2-11); Neutrophils Absolute Auto 3.3 x10*3/uL (2.0-8.3); Neutrophils Percent Auto 62.3 % (45-73); Platelet Count 281 X10*3/uL (160-400); Red Blood Count 4.29 X10*6/uL (4.20-5.50); Red Cell Distribution Width 12.7 % (11.0-16.0); White Blood Count 5.2 X10*3/uL (4.8-10.8)
[2025-02-23 10:37] LABS: Estimated Average Glucose 111 mg/dL; Hemoglobin A1c % 5.5 % (<6.0)
[2025-02-23 10:51] LABS: Alanine Aminotransferase 19 U/L (0-31); Albumin Level 4.4 g/dL (3.5-5.0); Alkaline Phosphatase 44 U/L (39-117); Anion Gap 13 (12-20); Aspartate Amino Transferase 30 U/L (5-31); Bilirubin Total 0.5 mg/dL (0.0-1.0); Blood Urea Nitrogen 19 mg/dL (9-16); Calcium 9.6 mg/dL (8.4-10.2); Carbon Dioxide 27 mmol/L (22-29); Chloride 105 mmol/L (96-108); Cholesterol 228 mg/dL (<200); Estimated Glomerular Filt Rate 52; Glucose Random 99 mg/dL (60-115); HDL Cholesterol 72 mg/dL (>40); LDL Cholesterol Calculated 128 mg/dL (<100); Magnesium 1.6 mg/dL (1.6-2.6); Potassium 3.8 mmol/L (3.3-5.1); Sodium 141 mmol/L (135-145); Triglycerides 140 mg/dL (<150)
[2025-02-23 11:10] LABS: Thyroid Stimulating Hormone 4.27 uIU/mL (0.32-4.0)
== END 2025-02-23 08:03 | disposition home or self-care (01) ==
LOC: HO.HMGCLDS 08:02
PROVIDERS: PCP Internal Medicine; Visit Provider Internal Medicine
DX: G25.81 Restless legs syndrome (principal); E78.00 Pure hypercholesterolemia, unspecified; Z13.1 Encounter for screening for diabetes mellitus
CPT/HCPCS: 80053; 80061; 83036; 83735; 84439; 84443; 85025

== ENCOUNTER 2025-02-24 07:40 | Outpatient (REF) | payer MEDICARE, SELFPAY ==
--- OUTSIDE RECORDS SUMMARY | 2025-02-24 10:21 | XMS_ITS | Patient Health Record ---
Author Organization [facility] Address [address] [place] [address] Care Team Providers Care Forming Machine Adjuster Name Role Phone Jesenia Winkler MD Primary Care Provider Gopi Nolan Unavailable [phone] Allergies Allergen (clinical drug ingredient) Drug/Non Drug Allergy documented on EMR Reaction Allergy Type Onset Date Status Pollen Pollen Unknown Allergy Active Mold Unknown Allergy Active Substance with sulfonamide structure and antibacterial mechanism of action (substance) Sulfa (uncoded) Unknown Allergy Active Results Component Value Reference Range Notes Pathology (Not yet reviewed by provider) Interpretation: Performing Lab:[facility], [address] [place] [id number] Notes/Report: Name: Malissa Tabares Age/Sex: 73/F : 1950 Unit#: [id number] Attend Dr: Gopi Zavaleta Re03/01/24 Status : [facility] Location: [facility] Disch: SPEC : [id number] RECD : 03/01/24 STATUS: YAHAIRA SALCEDO NUM: [id number] DMITRI: 03/01/24-101[address] [facility] [address]: Gopi Zavaleta ENTERED: 03/01/24-11 41 SP [...] A. CEDS Copies To: Jesenia Winkler MD [address] [place] [address] [address] [place] [address] Gopi Zavaleta [address] [place] [address] [address] [place] [address] Signed (si gnature on file) Liane Cunningham [...] Status Risk Notes Problem Colon cancer screening (566593483) Colon cancer screening (Z12.11) Active confirmed Problem History of adenomatous polyp of colon (811402492) History of adenomatous polyp of colon (Z86.010) Active confirmed Problem History of polyp of colon (situation) (575294996) Personal history of colonic polyps (Z86.010) Active confirmed Problem Pre-procedure evaluation check (341275686) Encounter for other preprocedural examination (Z01.818) Active confirmed Problem Diverticular disease of colon (153271961) Diverticulosis of large intestine without perforation or abscess without bleeding (K57.30) Active confirmed Encounters Encounter Location Date Provider Diagnosis [facility] Outpatient [address] [place] [phone] 03/01/2024 Gopi Zavaleta Encounter for scre ening [...] Insured Coverage Start Date Coverage End Date [facility] [address] [place] [address] [id number] MALISSA TABARES Self - patient is the insured Medical (General) History Medical History History ICD Code Colonoscopy 05/18/2007-with removal of a tubular adenoma Anxiety HTN Hyperlipidemia Denies NM,DM,CVA,Lung disease,renal dise ase Negative screening colonoscopy in 2012 Surgical History Surgery Date(Month/Year) Rectocele surgery Left Eye surgery for lazy eye
[2025-02-24 14:22] LABS: CDiff Gene PCR NEGATIVE (Negative)
[2025-02-24 15:26] LABS: Leukocytes Stool Qualitative NEGATIVE (NEGATIVE)
== END 2025-02-24 07:41 | disposition home or self-care (01) ==
LOC: HO.HMGCLNP 07:40
PROVIDERS: PCP Internal Medicine; Visit Provider Internal Medicine
DX: A09 Infectious gastroenteritis and colitis, unspecified (principal)
CPT/HCPCS: 87493; 89055

== ENCOUNTER 2025-03-29 14:27 | Outpatient (AMB) | payer MEDICARE, SELFPAY ==
--- NOTE | 2025-03-29 14:53 | AM.OFFWIN_ITS ---
Intake Vital Signs 03/29/25 15:01 Height 5 ft 1 in Weight 150 lb BMI 28.3 BP 122/74 Blood Pressure Location Lt brachial Position Sitting Pulse 69 Pulse Source Pulse Oximeter Temp 97.9 F Temp Source Oral Pulse Oximetry (%) 100 Oxygen Delivery Method Room Air Intake Visit Reasons: EP-mid back pain Intake Note: pt presents with radiating mid back pain x1 day, denies any injury Patient Tobacco Use Status: Former Tobacco user Allergies Sulfa (Sulfonamide Antibiotics) Allergy (Severe, Verified 03/29/25 15:05) Anaphylaxis atenolol Adverse Reaction (Intermediate, Verified 03/29/25 15:05) bradycardia pantoprazole Adverse Reaction (Intermediate, Verified 03/29/25 15:05) Diarrhea Do you need a note to return to daycare/school/sports/work: No HPI HPI Comments History of Present Illness Details History - The patient is a 74-year-old female pr esenting with intense pain radiating from the back for the last day. - The pain has occurred three times, wit h the most recent episode reaching a severity of 10 out of 10. - The pain radiates down the back and is described as intense, [place] to being stabbed. - Interventions include the use of a hea ting pad and muscle relaxants, which provided temporary relief. - The patient has a known kidney stone i n the left kidney, measuring 0.2 x 0.2 x 0.3 cm, identified via renal ultrasound on May 02, 2023. - The patient reports no prior pain asso ciated with the kidney stone and no changes in urination, fevers or hematuria. Physical Exam General: cooperative, healthy appearing and comfortable, patient oriented x3 Head: Yes normal to inspection and Yes normocephalic General nose exam: Normal external nose present Face and sinus: Yes normal facial exam Effort & Inspection: normal respiratory effort and able to speak in complete sentences Back/spine: tenderness all over the back cervical, thoracic and lumbar spine normal to inspection cervical ROM normal, thoracic ROM normal, lumbar ROM normal no Cervical, thoracic or lumbar spine tenderness TTP on left mid thoracic, slightly + CVA tenderness left side [facility] Medical History Colon cancer screening Anxiety HTN (hypertension) GERD (gastroesophageal reflux disease) Surgical History H/O colonoscopy Hx of tonsillectomy H/O eye surgery H/O rectocele repair Family History Father No problems noted. Mother No problems noted. Sister No problems noted. Daughter No problems noted. Daughter No problems noted. Social History Housing: House Alcohol intake: current Alcohol intake frequency: 0-2 drinks per day Comment: Q day glass of wine Patient Tobacco Use Status: Former Tobacco user Tobacco use type: Cigarette Years Smoked: quit 1984 e-Cigarette/Vaping Use: Never Used Second Hand Smoke Exposure: No service: No Current occupational status: retired Cognitive needs: No Hearing needs: No Vision needs: Yes Review of Systems Const All systems reviewed & are unremarkable except as noted in HPI and below Physical Exam Vital Signs: Last Vital Signs Temp 97.9 F 03/29/25 15:01 Pulse 69 03/29/25 15:01 BP 122/74 03/29/25 15:01 Pulse Ox 100 03/29/25 15:01 Oxygen Delivery Method Room Air 03/29/25 15:01 BMI result Body Mass Index 28.3 Assessment & Plan Assessment & Plan (1) Acute left-sided thoracic back pain: Code(s): M54.6 - Pain in thoracic spine Plan: Patient was informed and verbally consented to the use of an ambient scribe for clinic note documentation during this visit. - Musculoskeletal pain versus kidney stones. - Recommend use of Voltaren gel for topical relief as pt having procedure tomorrow and cannot take NSAIDS. - Prescribed cyclobenzaprine 5 mg for muscle relaxation at night. - Advised monitoring for worsening symptoms and ER visit if pain increases. - Advised monitoring for symptoms such as increased pain, hematuria, or fever. - Recommended ER visit for imaging if symptoms worsen to assess stone size and location. Medications: New cyclobenzaprine 5 mg PO Q8H PRN 20 tabs 0RF Muscle Spasm Coding Level of Care Code Est Pt Level 3 (24255) Diagnoses Acute left-sided thoracic back pain M54.6
[2025-03-29 15:01] VITALS: BP 122/74; PULSE 69; TEMP 36.6; O2SAT 100; BMI 28.3
--- OUTSIDE RECORDS SUMMARY | 2025-03-29 15:37 | XMS_ITS | Patient Health Record ---
Author Organization [facility] Address [address] [place] [address] Care Team Providers Care Dining Room Hostess Name Role Phone Po Jesenia JACKSON Primary Care Provider Gopi Nolan [phone] Allergies Allergen (clinical drug ingredient) Drug/Non Drug Allergy documented on EMR Reaction Allergy Type Onset Date Status Pollen Pollen Unknown Allergy Active Mold Unknown Allergy Active Substance with sulfonamide structure and antibacterial mechanism of action (substance) Sulfa (uncoded) Unknown Allergy Active Reason For Referral No Information [...] Status Risk Notes Problem Colon cancer screening (616811817) Colon cancer screening (Z12.11) Active confirmed Problem History of adenomatous polyp of colon (860434686) History of adenomatous polyp of colon (Z86.010) Active confirmed Problem History of polyp of colon (situation) (186259221) Personal history of colonic polyps (Z86.010) Active confirmed Problem Pre-procedure evaluation check (664664697) Encounter for other preprocedural examination (Z01.818) Active confirmed Problem Diverticulosis o f large intestine without perforation or abscess without bleeding (K57.30) Active confirmed Plan Of Treatment Pending Test Test Name Order Date Pathology 03/01/2024 Future Test Test Name Order Date COLONOSCOPY 10/14/2012 COLONOSCOPY 12/02/2023 Next Appt Details Provider Name:Gopi Zavaleta , 06/15/2025 03:00:00 PM, [address] [facility], [address], [place], [address], Insurance Providers Payer Name Payer Address Payer Phone Subscriber Number Group Number Insured Name Patient Relationship to Insured Coverage Start Date Coverage End Date [facility] [address] [place] [address] [phone] [id number] MALISSA TABARES Self - patient is the insured Medical (General) History Medical History History ICD Code Colonoscopy 05/18/2007-with removal of a tubular adenoma Anxiety HTN Hyperlipidemia Denies [place],DM,CVA,Lung disease,renal dise ase Negative screening colonoscopy in 2012 Surgical History Surgery Date(Month/Year) Rectocele surgery Left Eye surgery for lazy eye
--- OUTSIDE RECORDS SUMMARY | 2025-03-29 15:37 | XMS_ITS | Clinical Summary ---
Author Organization [facility] ity Address [address] [place] [address] Care Team Providers Care Statistics Teacher Name Role Phone Sendy Conley MD Primary Care Provider [phone] Allergies Active Allergy Reactions Criticality Noted Date [...] kidney disease) stage 3, GFR 30-59 ml/min ([facility] V24, [facility] V28) 05/16/2015 Diverticulosis 04/21/2013 Overview (09/24/2024): Seen [...] Site/Laterality Comments OTHER SURGICAL HISTORY 1960 PROCEDURE: [place] UNLISTED PROCEDURE EXTRAOCULAR MUSCLE OTHER SURGICAL HISTORY 1970 PROCEDURE: ND REPAIR RECTOCELE SEPARATE PROCEDURE TONSILLECTOMY 1951 PROCEDURE: HISTORICAL TONSILLECTOMY COLONOSCOPY 02/18/13 PROCEDURE: HISTORICAL COLONOSCOPY MULTIPLE TOOTH EXTRACTIONS PROCEDURE: HISTORICAL DENTAL EXTRACTION OTHER SURGICAL HISTORY 11/2018 PROCEDURE: MAMMOGRAM Medical History Medical History Date Comments Essential hypertension, benign D X:Essential hypertension, benign Pure hypercholesterolemia DX:Pur e hypercholesterolemia 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/13/2012 DX:Otitis maternity nurse a History of malignant neoplas m of [...] Due Date Last Done Comments Zoster Vaccines (1 of 2) 09/13/2015 07/19/2015 Depression Screening 09/07/2022 Falls Risk [...] 11/29/2021 10:39 AM EST BONE DENSITY (DEXA) Lumbar Spine T-score is [...] (World Health Organization Fracture Risk Assessment) [facility] Department of Internal Medicine recommends using [...] alternative screening schedule based on [place]., [facility] October 17, 2011 for patients with osteopenia [...] (World Health Organization Fracture Risk Assessment) [facility] Department of Internal Medicine recommendsusing National [...] alternative screening schedule based on v[place]shi [place]., NEJMJanuary 2011 for patients with osteopenia (based [...] interpreted with the aid of computer-aided detection. Comparison is made with 12/17/2018. Breast parenchyma is composed of scattered fibroglandular densities. No new suspicious mass, architectural distortion, or suspicious [...] evidence of malignancy. BI-RADS 1 - negative us Sendy Conley MD IMG XR PROCEDURES Final Result * Hepatitis C Screening (08/04/2013) Hepatitis C Screening Abstracted Historical Provider HEALTH MAINTENANCE Final Result from Last 3 Months or Most Recently Relevant to Health Maintenance Care Teams Statistics Teacher Relationship Specialty Start Date End Date Sendy Conley MD [address] [place] [address] PCP - General Internal Medicine 04/24/20
--- OUTSIDE RECORDS SUMMARY | 2025-03-29 15:37 | XMS_ITS | Patient Health Record ---
Author [facility] Address [address] [place] [address] Care Team Providers Care Layout Designer Name Role Phone Chapito Mena MD Primary Care Provider Unavail able Black, Maribel Unavailable [phone] Allergies Allergen (clinical drug ingredient) Drug/Non Drug Allergy documented on EMR Reaction Allergy Type Onset Date Status sulfamethoxazole / trimethoprim Bactrim Unknown Drug Allergy Active Reason For Referral No Information Medications Medication SIG (Take, Route, Frequency, Duration) Notes Start Date End Date Status Aspirin 81 MG 1 tablet Orally Once a day; Duration: 30 day(s) Active Triamterene-HCTZ 37.5-25 MG 1 tablet in the morning Orally Once a day; Duration: 30 day(s) Active CeleXA 20 MG 1 tablet Orally Once a day; Duration: 30 day(s) Active Atenolol 25 MG 1 tablet Orally Once a day; Duration: 30 day(s) Active Simvastatin 40 MG 1 tablet every eveni ng Orally Once a day; Duration: 30 day(s) Active Social History Tobacco use other than smoking: Question Answer Notes Are you an other tobacco user? No Problems No Known Problems Plan Of Treatment Pending Test Test Name Order Date [id number] NAIL, 6 OR MORE 04/29/2014 [id number] NAIL, 6 OR MORE 08/31/2015 [id number] NAIL, 6 OR MORE 02/29/2016 [id number] NAIL, 6 OR MORE 09/05/2016 42595-Jlcagztb Plate 04/29/2014 55332-Chfwdudz Plate Each Additional 09/2013 Insurance Providers Payer Name Payer Address Payer Phone Subscriber Number Group Number Insured Name Patient Relationship to Insured Coverage Start Date Coverage End Date [employer] Medicare [id number] [address] [address] [place] [address] [id number] Geraldine Best Self - patient is the insured Medical (General) History Medical History History ICD Code anxiety high blood pressure scarlet fever measles chicken pox Mumps Surgical History Surgery Date(Month/Year) eye surgery
== END 2025-03-29 15:50 | disposition home or self-care (01) ==
PROVIDERS: PCP Internal Medicine; Visit Provider Physician Assistant
DX: M54.6 Pain in thoracic spine (principal)

== ENCOUNTER → 2025-03-29 14:27 | Outpatient (BNVA) | payer MEDICARE, SELFPAY | PROVIDERS: PCP Internal Medicine; Visit Provider Physician Assistant | DX: M54.6 Pain in thoracic spine (principal) | CPT/HCPCS: 99212 ==

== ENCOUNTER 2025-07-21 10:48 | Outpatient (AMB) | payer MEDICARE, SELFPAY ==
--- NOTE | 2025-07-21 11:12 | MHC.PC.OV ---
Vital Signs 07/21/25 11:13 Height 5 ft 1 in Weight 149 lb 4 oz BMI 28.2 BP 132/62 Blood Pressure Location Lt brachial Position Sitting Pulse 61 Pulse Source Pulse Oximeter Temp 97.3 F Temp Source Temporal Artery Scan Pulse Oximetry (%) 100 Oxygen Delivery Method Room Air Intake Visit Reasons: Julianne Lozano's office 08/18 lt eye Intake Note: Patient is here for a Pre-op for Left eye Cataract scheduled with Julianne Lozano on 08/18/25. Area Intelligence Technician Required: No Outboard Motors Experimental Mechanic: Not Required per policy Accompanied by: Self / Same As Patient Allergies Sulfa (Sulfonamide Antibiotics) Allergy (Severe, Verified 07/21/25 11:13) Anaphylaxis atenolol Adverse Reaction (Intermediate, Verified 07/21/25 11:13) bradycardia pantoprazole Adverse Reaction (Intermediate, Verified 07/21/25 11:13) Diarrhea Medication List - Last Reconciled 07/21/25 by Neto Zafar MD alprazolam 0.5 mg PO BEDTIME PRN ascorbate calcium (vitamin C) 500 mg PO DAILY betamethasone dipropionate 0.05% topical BID PRN blood pressure monitor (Blood Pressure Kit) As directed cetirizine (All Day Allergy (cetirizine)) 10 mg PO DAILY cholecalciferol (vitamin D3) 25 mcg PO DAILY citalopram 20 mg (1/2 x 40 mg) PO DAILY cyclobenzaprine 5 mg PO Q8H PRN famotidine (Pepcid) 40 mg PO BEDTIME lisinopril 10 mg PO DAILY 90 days simvastatin 40 mg PO QPM triamterene-hydrochlorothiazid 75-50 mg 1 tab PO DAILY 90 days [zinc magnesium and calcium PO .QD] Tobacco use date assessed: 07/21/25 Fall risk assessment: No Falls in past year Last assessed Fall Risk: 07/21/25 Dental Screening Dental Screen Date: 12/01/24 HPI HPI Comments History of Present Illness Details The patient is a 75-year-old female presenting with preoperative clearance for cataract surgery. The patient has a history of cataract in the left eye, for which surgery is scheduled on August 18. She underwent laboratory tests in January, but current labs are required for preoperative clearance. [facility] Medical History Colon cancer screening Anxiety HTN (hypertension) GERD (gastroesophageal reflux disease) Surgical History H/O colonoscopy Hx of tonsillectomy H/O eye surgery H/O rectocele repair Family History Father No problems noted. Mother No problems noted. Sister No problems noted. Daughter No problems noted. Daughter No problems noted. Social History Housing: House Alcohol intake: current Alcohol intake frequency: 0-2 drinks per day Comment: Q day glass of wine Patient Tobacco Use Status: Former Tobacco user Tobacco use type: Cigarette Years Smoked: quit 1984 e-Cigarette/Vaping Use: Never Used Second Hand Smoke Exposure: Yes service: No Current occupational status: retired Cognitive needs: No Hearing needs: No Vision needs: Yes Questionnaire Thrive Questionnaire Date Thrive assessed: 02/09/25 I am a: Patient What is your living situation today?: I have a steady place to live Within the past 12 months, did the food you bought not last and you didn't have the money to get more?: Never true Within the past 12 months, did you worry whether your food would run out before you got money to buy more?: Never true Do you have trouble paying for medicines?: No Do you have trouble getting transportation to medical appointments?: No Do you have trouble paying your heating and electricity bill?: No Do you have trouble taking care of your child, family member or friend?: No Do you have trouble with day-to-day activities such as bathing, preparing meals, shopping, managing finances, etc.?: No Are you currently unemployed and looking for a job?: No Are you interested in more education?: No Please select the resources that you would like help with: None Currently or been in a relationship where the following occur: No concerns reported THRIVE Score: 0 WILLY-7 AMB Questionnaire WILLY-7 Date WILLY - 7 assessed: 02/16/25 Source: Developed by Drs. Gopi Rodríguez, Estefani Diggs, Juancho Rivero and colleagues, with an educational marquis from [employer]. Review of Systems Const Details: Positives besides what was mentioned in HPI are in BOLD Constitutional: No Weight Change, No Fever, No Chills, No Night Sweats, No Fatigue, No Malaise ENT/Mouth: No Hearing Changes, No Ear Pain, No Nasal Congestion, No Sinus Pain, No Hoarseness, No sore throat, No Rhinorrhea, No Swallowing Difficulty Eyes: No Eye Pain, No Swelling, No Redness, No Foreign Body, No Discharge, No Vision Changes Cardiovascular: No Chest Pain, No SOB, No PND, No Dyspnea on Exertion, No Orthopnea, No Claudication, No Edema, No Palpitations Respiratory: No Cough, No Sputum, No Wheezing, No Smoke Exposure, No Dyspnea Gastrointestinal: No Nausea, No Vomiting, No Diarrhea, No Constipation, No Pain, No Heartburn, No Anorexia, No Dysphagia, No Hematochezia, No Melena, No Flatulence, No Jaundice Genitourinary: No Dysmenorrhea, No DUB, No Dyspareunia, No Dysuria, No Urinary Frequency, No Hematuria, No Urinary Incontinence, No Urgency, No Flank Pain, No Urinary Flow Changes, No Hesitancy Musculoskeletal: No Arthralgias, No Myalgias, No Joint Swelling, No Joint Stiffness, No Back Pain, No Neck Pain, No Injury History Skin: No Skin Lesions, No Pruritis, No Hair Changes, No Breast/Skin Changes, No Nipple Discharge Neuro: No Weakness, No Numbness, No Paresthesias, No Loss of Consciousness, No Syncope, No Dizziness, No Headache, No Coordination Changes, No Recent Falls Psych: No Anxiety/Panic, No Depression, No Insomnia, No Personality Changes, No Delusions, No Rumination, No SI/HI/AH/VH, No Social Issues, No Memory Changes, No Violence/Abuse Hx., No Eating Concerns Heme/Lymph: No Bruising, No Bleeding, No Transfusions History, No Lymphadenopathy Endocrine: No Polyuria, No Polydipsia, No Temperature Intolerance Physical exam (Primary Care) Vital Signs: Last Vital Signs Temp 97.3 F 07/21/25 11:13 Pulse 61 07/21/25 11:13 BP 132/62 07/21/25 11:13 Pulse Ox 100 07/21/25 11:13 Oxygen Delivery Method Room Air 07/21/25 11:13 BMI result Body Mass Index 28.2 Tobacco/Smoking Status: Tobacco use Status Tobacco use date assessed 07/21/25 07/21/25 11:18 Patient Tobacco Use Status Former Tobacco user 07/21/25 11:18 Tobacco use type Cigarette 07/21/25 11:18 e-Cigarette/Vaping Use Never Used 07/21/25 11:18 Thrive Assessment: Date of Thrive Assessment Date Thrive assessed 02/09/25 07/21/25 11:18 Currently or been in a relationship where the following occur: No concerns reported Const Other: Pertinent findings are in BOLD GENERAL APPEARANCE NAD, activity normal for age, well developed/ well nourished, no cyanosis, pallor, or diaphoresis. EYES lids/conjunctiva normal. EARS/NOSE/THROAT Mucous membranes moist, nares normal, lips/teeth normal uvula midline without oral pharyngeal erythema, exudate or swelling TMs normal bilaterally. No lymphangitis/lymphedema. HEAD/NECK normocephalic atraumatic, no facial trauma, neck is supple. RESPIRATORY respiratory effort normal, speaks in full sentences, no tripod position, no accessory muscle use. Lungs clear to auscultation without rhonchi, wheezes, rales CARDIAC Regular rate and rhythm, no edema. ABDOMINAL Soft, ND/NT. No evidence of fluid wave. No pulsatile masses on exam, rebound tenderness, Dolan sign or pain over Mcburney's point. MUSCLES/EXTREMITIES No abnormal range of motion, no swelling. SKIN Warm, pink and dry. No rashes, dermatoses, petechiae or lesions. NEUROLOGICAL Speech is clear and appropriate. Normal level of consciousness. Gait and coordination are normal. 5/5 strength in all extremities. PSYCH Normal mood and affect. Judgement/competence is appropriate Office Procedures EKG 84489-[id number], Complete Coding Level of Care Code Est Pt Level 4 (66105) Diagnoses Pre-op exam Z01.818 RLS (restless legs syndrome) G25.81 CPT Codes EKG - CPT: 35388-Nzdfegewjebdrojpd, Complete ([id number]) Time Spent (min) 20 Assessment & Plan Assessment & Plan (1) Pre-op exam: Code(s): Z01.818 - Encounter for other preprocedural examination Category: Medical Plan: Repeat labs ordered. Pending. Patient denies any cardiac, renal, liver, lung problems. EKG in clinic showing sinus rythm. She tolerates physical activity well. RCRI: 0. Clearance pending labs. (2) RLS (restless legs syndrome): Code(s): G25.81 - Restless legs syndrome Category: Medical Plan: - Dietary modifications suggested to manage symptoms, though effectiveness is uncertain. - Patient advised to monitor dietary intake and symptom correlation. Plan I discussed the plan for cataract surgery on August 18, emphasizing the need for preoperative clearance, including labs and an EKG. We also talked about managing restless leg syndrome through dietary modifications and monitoring symptom correlation with dietary intake. Orders: Orders Complete Blood Count no Diff Today Z01.818 - Encounter for other preprocedural examination Comprehensive Met. Panel Today Z01.818 - Encounter for other preprocedural examination AMB EKG-In Office Today Z01.818 - Encounter for other preprocedural examination
[2025-07-21 11:13] VITALS: BP 132/62; PULSE 61; TEMP 36.3; O2SAT 100; BMI 28.2
--- OUTSIDE RECORDS SUMMARY | 2025-07-21 13:13 | XMS_ITS | Clinical Summary ---
Author Organization [facility] Address [address] [place] [address] Care Team Providers Care Drafter Name Role Phone Sendy Conley MD Primary Care Provider [phone] Allergies Active Allergy Reactions Criticality Noted Date [...] kidney disease) stage 3, GFR 30-59 ml/min ([facility] V24, [facility] V28) 05/16/2015 Diverticulosis 04/21/2013 Overview (09/24/2024): Seen at colonoscopy along with internal and external hemorrhoids 02/18/2013 Benign neoplasm of colon 06/08/2007 Overview (09/24/2024): tubular adenoma of colon, Dr. Zavaleta, 06/02/2007, follow-up recommended in 5 years Anxiety state 08/21/2005 Essential hypertension, benign 08/21/2005 Pure hypercholesterolemia 08/21/2005 Immunizations Immunization Administration Dates Next Due Influenza trivalent, 0.5mL [...] Site/Laterality Comments OTHER SURGICAL HISTORY 1960 PROCEDURE: NC UNLISTED PROCEDURE EXTRAOCULAR MUSCLE OTHER SURGICAL HISTORY 1970 PROCEDURE: NC REPAIR RECTOCELE SEPARATE PROCEDURE TONSILLECTOMY 1951 PROCEDURE: HISTORICAL TONSILLECTOMY COLONOSCOPY 02/18/13 PROCEDURE: HISTORICAL COLONOSCOPY MULTIPLE TOOTH EXTRACTIONS PROCEDURE: HISTORICAL DENTAL EXTRACTION OTHER SURGICAL HISTORY 11/2018 PROCEDURE: MAMMOGRAM Medical History Medical History Date Comments Essential hypertension, benign D X:Essential hypertension, benign Pure hypercholesterolemia DX:Pur e hypercholesterolemia 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/13/2012 DX: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 a History of malignant neoplas m of [...] Zoster Vaccines (1 of 2) 09/13/2015 07/19/2015 Falls Risk Assessment 09/07/2022 Social Influencers of Health Screening 09/07/2022 Hypertension/CHF/CAD Annual BMP Blood Test 03/18/2023 03/18/2022 RSV Immunization Adult Patients (1 - 1-dose 75+ series) 2023 Depression Screening 09/29/2024 COVID-19 Vaccine ( season) 2025 07/23/2021, 01/10/2021, 12/13/2020 Influenza Vaccine (#1) 2025 , 08/09/2020, 07/19/2019, Additional history exists Cholesterol [...] (World Health Organization Fracture Risk Assessment) [facility] Department of Internal Medicine recommends using National [...] alternative screening schedule based on [place] [facility] October 17, 2011 for patients with [...] (World Health Organization Fracture Risk Assessment) [facility] Department of Internal Medicine recommendsusing National Osteoporosis [...] Recently Relevant to Health Maintenance Care Teams Drafter Relationship Specialty Start Date End Date Sendy Conley MD [address] [place] [address] PCP - General Internal Medicine 04/24/20
== END 2025-07-21 11:53 | disposition home or self-care (01) ==
LOC: HO.HMCH 10:48
PROVIDERS: PCP Internal Medicine; Visit Provider Internal Medicine
DX: Z01.818 Encounter for other preprocedural examination (principal); G25.81 Restless legs syndrome

== ENCOUNTER → 2025-07-21 10:48 | Outpatient (BNVA) | payer MEDICARE, SELFPAY | PROVIDERS: PCP Internal Medicine; Visit Provider Internal Medicine | DX: Z01.818 Encounter for other preprocedural examination (principal); H26.9 Unspecified cataract; G25.81 Restless legs syndrome | CPT/HCPCS: 93005; 99212 ==

== ENCOUNTER 2025-07-23 11:11 | Outpatient (REF) | payer MEDICARE, SELFPAY ==
--- OUTSIDE RECORDS SUMMARY | 2024-03-01 05:50 | XMS_ITS ---
Author Organization [facility] Address [address] [place] [phone] Care Team Providers Care Dish Stacker Name Role Phone Po Jesenia JACKSON Primary Care Provider Gopi Nolan [phone] REASON FOR VISIT screening, hx polyps Problems Problem Type SNOMED Code ICD Code Onset Dates Problem Status W/U Status Risk Notes Problem Diverticular disease of colon (673853765) Diverticulosis of large intestine without perforation or abscess without bleeding (K57.30) Active confirmed Encounters Encounter Location Date Provider Diagnosis [facility] [place] [address] [place] [phone] 03/01/2024 Gopi Zavaleta Encounter for scre ening [...] Notes * MALISSA TABARESDOB:1950 (75 yo F)Acc No.[id number]:03/01/2024 COLON WITH MAC Patient: Robbie MALISSA MOURA Provider: Khari Zavaleta MD :1950 A ge:73 Y S ex:Female Date:03/01/2024 Address:[address] [facility] Pcp:Jesenia Winkler MD Subjective: * Chief Complaints: [...] 03/01/2024 Generated for Savanna brown/Ophelia/Vangiesmitting on: 1 11:14 AM EDT
--- OUTSIDE RECORDS SUMMARY | 2025-06-09 06:40 | XMS_ITS ---
Author Organization [facility] Address [address] [place] [address] Care Team Providers Care Boat Finisher Name Role Phone Jesenia Winkler MD Primary Care Provider Gopi Nolan [phone] REASON FOR VISIT INFECTIOUS GASTROENTERITIS, COLITIS Encounters Encounter Location Date Provider Diagnosis [facility] [address] [place] [address] 2025 Gopi Zavaleta Plan Of Treatment No Information Progress Notes * MALISSA TABARESDOB:1950 (75 yo F)Acc No.[id number]:2025 Progress Notes Patient: MALISSA VILLA Provider: Khari Zavaleta MD :1950 A ge:75 Y S ex:Female Date:2025 Address: [address] [facility] Pcp:Jesenia Winkler MD Subjective: * Chief Complaints: [...] 0 2025 Generated for Savanna brown/Ophelia/eTransmitting on: 1 11:13 AM EDT
--- OUTSIDE RECORDS SUMMARY | 2025-06-15 11:00 | XMS_ITS ---
Author Organization [facility] Address [address] [place] [address] Care Team Providers Care Preformer Impregnated Fabrics Name Role Phone Jesenia Winkler MD Primary Care Provider Gopi Nolan [phone] REASON FOR VISIT Patient presents today for INFECTIOUS GASTROENTERITIS, COLITIS Encounters Encounter Location Date Provider Diagnosis [facility] [address] [place] [address] 06/15/2025 Gopi Zavaleta Plan Of Treatment No Information Progress Notes * MALISSA TABARESDOB:1950 (75 yo F)Acc No.[id number]:06/15/2025 Progress Notes Patient: MALISSA VILLA Provider: Khari Zavaleta MD :1950 A ge:75 Y S ex:Female Date:06/15/2025 [facility] Pcp:Jesenia Winkler MD Subjective: * Chief Complaints: [...] 0 06/15/2025 Generated for Savanna brown/Ophelia/eTransmitting on: 1 11:13 AM EDT
--- OUTSIDE RECORDS SUMMARY | 2025-07-23 11:13 | XMS_ITS | Encounter Summary ---
Author Organization [facility] Address [address] [place] [address] Care Team Providers Care Wrapper Operator Name Role Phone Chapito Mena MD Primary Care Provider Unavail able Sendy Conley MD Primary Care Provider [phone] [facility], Pcp Primary Care Provider Unavailabl e Reason for Visit * Reason Comments E-prescribe Rx Request Encounter Details Date Type Department Care Team Description 01/10/2020 Refill Adult Medicine [address] [address] Chapito Mena MD E-prescribe Rx Request Social [...] on filedocumented in this encounter Care Teams Wrapper Operator Relationship Specialty Start Date End Date Chapito Mena MD PCP - General 04/05/1994 04/23/20 Sendy Conley MD [address] [place] [address] PCP - General Internal Medicine 04/24/20 10/24/[address] [address] PCP - General Internal Medicine 10/25/22 documented as of this encounter
--- OUTSIDE RECORDS SUMMARY | 2025-07-23 11:13 | XMS_ITS | Encounter Summary ---
Author Organization [facility] Address [address] [place] [address] Care Team Providers Care Student Support Advisor Name Role Phone Chapito Mena MD Primary Care Provider Unavail able Sendy Conley MD Primary Care Provider [phone] [facility], Pcp Primary Care Provider Unavailabl e Encounter Details Date Type Department Care Team Description 02/18/2005 Orders Only Medical [address] [place] [id number] Chapito Mena MD MIXED HYPERLIPIDEMIA (Primary Dx) Social History Tobacco Use Types Packs/Day Years Used Date Smoking Tobacco: Never Assessed Sex Assigned at Date Recorded Not on file Job Start Date Occupation Industry Not on file Not on file Not on file documented as of this encounter Plan of Treatment Scheduled Orders Name Type Priority Associated Diagnoses Orde r Schedule VENIPUNCTURE Lab Routine Mixed Hyperlipidemia Ordered: 02/18/2005 documented as of this encounter Procedures Procedure Name Priority Date/Time Associated Diagnosis Comments CHG TRANSFERASE ALANINE AMINO ALT SGPT Routine 02/18/2005 7:45 AM EDT Mixed Hyperlipidemia CHG TRANSFERASE ASPARTATE AMINO AST SGOT Routine 02/18/2005 7:45 AM EDT Mixed Hyperlipidemia CHG LIPID PANEL Routine 02/18/2005 7:45 AM EDT Mixed Hyperlipidemia documented in this encounter Results * TRANSAMINASE (SGPT)(ALT) UV- (02/18/2005 7:45 AM EDT) ALT (SGPT) 33 10 - 60 U/L [facility] 02/18/2005 7:45 AM EDT 02/18/2005 7:47 AM EDT Chapito Mena MD LAB Performing Organization Address City/[facility]/ZIP Co de Phone Number [facility] * TRANSAMINASE (SGOT)(AST) UV- (02/18/2005 7:45 AM EDT) AST (SGOT) 24 10 - 42 U/L [facility] 02/18/2005 7:45 AM EDT 02/18/2005 7:47 AM EDT Chapito Mena MD LAB Performing Organization Address [facility] Co de Phone Number [facility] * (ABNORMAL) LIPID PROFILE (02/18/2005 7:45 AM EDT) Cholesterol 214(H) 0 - 200 mg/dL [facility] TRIGLYCERIDES 109 0 - 150 mg/dL [facility] HDL CHOLESTEROL 76 >40 mg/dL [facility] LDL CALCULATED 117(H) 0 - 100 mg/dL [facility] TC-HDLC RATIO 2.8 0 - 4.4 mg/dL [facility] 02/18/2005 7:45 AM EDT 02/18/2005 7:47 AM EDT Chapito Mena MD LAB Performing Organization Address [facility] Co de Phone Number [facility] documented in this encounter Visit Diagnoses Diagnosis Mixed hyperlipidemia- Primary documented in this encounter Care Teams Student Support Advisor Relationship Specialty Start Date End Date Chapito Mena MD PCP - General 04/05/1994 04/23/20 Sendy Conley MD [address] [place] [address] PCP - General Internal Medicine 04/24/20 10/24/22 [facility], Pcp [address] [place] [address] PCP - General Internal Medicine 10/25/22 documented as of this encounter
--- OUTSIDE RECORDS SUMMARY | 2025-07-23 11:13 | XMS_ITS | Encounter Summary ---
Author Organization [facility] Address [address] [place] [address] Care Team Providers Care Cad Designer Drafter Name Role Phone Chapito Mena MD Primary Care Provider Unavail able Sendy Conley MD Primary Care Provider [phone] Formerly [facility], Pcp Primary Care Provider Unavaillegacy health e Reason for Visit * Reason Comments Watch Parts Grinder Feedback PODIATRY Encounter Details Date Type Department Care Team Description 03/22/2004 Telephone Adult Medicine [address] [address] Chapito Mena MD Watch Parts Grinder Feedback (PODIATRY) Social History Tobacco Use Types Packs/Day Years Used Date Smoking Tobacco: Never Assessed Sex Assigned at Date Recorded Not on file Job Start Date Occupation Industry Not on file Not on file Not on file documented as of this encounter Miscellaneous Notes * Telephone Encounter - 10/22/2004 2:50 PM ESTNEVER CALLED BACK/GIVEN TO PCP * Telephone Encounter - 03/22/2004 12:39 PM EDTCALL RECEIVED. Contact: DOCUMENTING PT. NOTIFIED, BY MAIL, TO BOOK APPT.,GET BACK W/ SPEC AND DATE documented in this encounter Plan of Treatment Not on file documented as of this encounter Visit Diagnoses Not on filedocumented in this encounter Care Teams Cad Designer Drafter Relationship Specialty Start Date End Date Chapito Mena MD PCP - General 04/05/1994 04/23/20 Sendy Conley MD [address] [place] [address] PCP - General Internal Medicine 04/24/20 10/24/22 Formerly [facility], Pcp [address] [place] [address] PCP - General Internal Medicine 10/25/22 documented as of this encounter
--- OUTSIDE RECORDS SUMMARY | 2025-07-23 11:13 | XMS_ITS | Encounter Summary ---
Author Organization [facility] Address [address] [facility] [place] [address] Care Team Providers Care Section Repairer Name Role Phone Sendy Conley MD Primary Care Provider [phone] Formerly [facility], Pcp Primary Care Provider Unavailabl e Encounter Details Date Type Department Care Team Description 11/16/2020 Leather Belt Shaper Report Medical Records [address] [place] [address] Kim Chadwick Social History Tobacco Use Types Packs/Day Years [...] as of this encounter Plan of Treatment Not on file documented as of this encounter Visit Diagnoses Not on filedocumented in this encounter Care Teams Section Repairer Relationship Specialty Start Date End Date Sendy Conley MD [address] [place] [address] PCP - General Internal Medicine 04/24/20 10/24/22 Formerly [facility], Pcp [address] [place] [address] PCP - General Internal Medicine 10/25/22 documented as of this encounter
--- OUTSIDE RECORDS SUMMARY | 2025-07-23 11:14 | XMS_ITS | Encounter Summary ---
Author Organization [facility] Address [address] [place] [address] Care Team Providers Care Deep Fryer Assembler Name Role Phone Chapito Mena MD Primary Care Provider Unavail able Sendy Conley MD Primary Care Provider [phone] [facility], Pcp Primary Care Provider [facility] Encounter Details Date Type Department Care Team Description 04/29/2014 Classifications Officer Cc/Cm Report Medical Records [address] [place] [address] Black, Maribel Social History Tobacco Use Types Packs/Day Years Used Date Smoking Tobacco: Never Smokeless Tobacco: Never Alcohol Use Standard Drinks/Week Comments Yes 0 [...] on filedocumented in this encounter Care Teams Deep Fryer Assembler Relationship Specialty Start Date End Date Chapito Mena MD PCP - General 04/05/1994 04/23/20 Sendy Conley MD [address] [place] [address] PCP - General Internal Medicine 04/24/20 10/24/22 [facility], Pcp [address] [place] [address] PCP - General Internal Medicine 10/25/22 documented as of this encounter
--- OUTSIDE RECORDS SUMMARY | 2025-07-23 11:14 | XMS_ITS | Clinical Summary ---
Author Organization [facility] Address [address] [place] [address] Care Team Providers Care Rodding Machine Tender Name Role Phone Sendy Conley MD Primary Care Provider [phone] Allergies Active Allergy Reactions Criticality Noted Date [...] kidney disease) stage 3, GFR 30-59 ml/min ([facility] V24, 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 History of malignant neoplas m of [...] (World Health Organization Fracture Risk Assessment) [facility] Department of Internal Medicine recommends using National [...] alternative screening schedule based on [place] [facility] October 17, 2011 for patients with [...] (World Health Organization Fracture Risk Assessment) [facility] Department of Internal Medicine recommendsusing National Osteoporosis [...] Recently Relevant to Health Maintenance Care Teams Rodding Machine Tender Relationship Specialty Start Date End Date Sendy Conley MD [address] [place] [address] PCP - General Internal Medicine 04/24/20
--- OUTSIDE RECORDS SUMMARY | 2025-07-23 11:14 | XMS_ITS | Encounter Summary ---
Author Organization [facility] Address [address] [place] [address] Care Team Providers Care Video Game Script Writer Name Role Phone Chapito Mena MD Primary Care Provider Unavail able Sendy Conley MD Primary Care Provider [phone] [facility], Pcp Primary Care Provider Unavailabl e Reason for Referral * Specialist (Urgent) - Authorized/Booked Specialty Diagnoses / Procedures Referred By Contact Referred To Contact Otolaryngology / EarNoseThroat Procedures REFERRAL TO EAR, NOSE & THROAT Kadeem Lao MD [address] [place] [address] External Ent Referral ID Status Reason Start Date Expiration Date V isits Requested Visits Authorized SEE REVIEW 05/26 Authorized/ Booked 05/26/2012 08/26/2012 1 1 Reason for Visit * Reason Onset Date Comments ear problems 05/26/2012 Encounter Details Date Type Department Care Team Description 05/26/2012 Telephone Adult Medicine [address] [address] Chapito Mena MD ear problems Social History Tobacco Use Types Packs/Day Years Used Date Smoking Tobacco: Never Smokeless Tobacco: Never Alcohol Use Standard Drinks/Week Comments Yes 0 (1 standard drink = 0.6 oz pur e alcohol) socially Sex Assigned at Date Recorded Not on file Job Start Date Occupation Industry Not on file Not on file Not on file documented as of this encounter Miscellaneous Notes * Telephone Encounter - Yael Butt R.N. - 05/26/2012 4:59 PM EDT Will address this tomorrow when ENT offices are open. * Telephone Encounter - Kadeem Lao MD - 05/26/2012 4:05 PM EDT Since she has not improved with antibiotics I would like her to see ear nose and throat. I will puta referral in. Can we see if we can get her in [place]? * Telephone Encounter - Shena Perez R.N. - 05/26/2012 3:16 PM EDT Pt was seen by dr lao on 05/13 for otitis externa, was given po antibiotics and otic drops. Pt has not improved , she continues to have sharp pain in her ear every day, usually in the evening, she uses the drops and has some relief but the next day it begins again Pt denies any new symptoms, has no N/V/d or fever, she has no drainage from the ear, the ear/ face are not red or swollen. Pt is asking for a referral for ENT * Telephone Encounter - Yudelka Caro - 05/26/2012 3:05 PM EDT Patient is returning call. Please call the patient at [phone] * Telephone Encounter - Shena Perez R.N. - 05/26/2012 2:48 PM EDT I left a message for the patient to return my call. * Telephone Encounter - Liana Malave - 05/26/2012 1:57 PM EDT Symptoms patient is presenting: ear pain pt saw Kadeem Lao he told her if needed he would refer her to ENT she would like that she is asking to speak to the nurse How long has patient had these symptoms?: [id number] PCP: Chapito Mena MD Payor: GENEVA Plan: POS $30 MOMO [id number] Product Type: PPO [id number] documented in this encounter Plan of Treatment Not on file documented as of this encounter Visit Diagnoses Diagnosis Otitis externa- Primary Infective otitis externa, unspecified documented in this encounter Care Teams Video Game Script Writer Relationship Specialty Start Date End Date Chapito Mena MD PCP - General 04/05/1994 04/23/20 Sendy Conley MD [address] [place] [address] PCP - General Internal Medicine 04/24/20 10/24/22 [place] [address] PCP - General Internal Medicine 10/25/22 documented as of this encounter
--- OUTSIDE RECORDS SUMMARY | 2025-07-23 11:14 | XMS_ITS | Encounter Summary ---
Author Organization [facility] Address [address] [place] [address] Care Team Providers Care Plastics Design Engineer Name Role Phone Chapito Mena MD Primary Care Provider Unavail able Sendy Conley MD Primary Care Provider [phone] [facility] [place] [facility], Pcp Primary Care Provider [facility] Encounter Details Date Type Department Care Team Description 11/25/2018 [facility] Medical Records [address] [place] [address] Abstract, Provider Social History Tobacco Use Types Packs/Day Years Used Date Smoking Tobacco: Former Cigarettes Q uit: 09/29/1985 Smokeless Tobacco: Former Comments:quit over 28 [...] on filedocumented in this encounter Care Teams Plastics Design Engineer Relationship Specialty Start Date End Date Chapito Mena MD PCP - General 04/05/1994 04/23/20 Sendy Conley MD [address] [place], [place] [id number] PCP - General Internal Medicine 04/24/20 10/24/22 [facility], Pcp [address] [place] [address] PCP - General Internal Medicine 10/25/22 documented as of this encounter
--- OUTSIDE RECORDS SUMMARY | 2025-07-23 11:14 | XMS_ITS | Encounter Summary ---
Author Organization [facility] Address [address] [place] [address] Care Team Providers Care Nutrition Worker Name Role Phone Sendy Conley MD Primary Care Provider [phone] [facility], Pcp Primary Care Provider Unavailabl e Reason for Visit * Reason Onset Date Comments Mychart Rx Refill 05/14/2022 Encounter Details Date Type Department Care Team Description 05/14/2022 Refill Adult Medicine [address] [id number] Sarah Wright PA-C [address] [place] [address] [id number] Mychart Rx Refill Social History Tobacco Use Types Packs/Day Years [...] file Not on file Not on file COVID-19 Exposure Response Date Recorded In the last 10 days, have yo u been in contact with someone who was confirmed or suspected to have Coronavirus/COVID-19? No / Unsure 04/30/2022 9:53 AM EDT documented as of this encounter Miscellaneous Notes * Telephone Encounter - Olvin Rose M.A. - 05/14/2022 3:43 PM EDT Pt not on CSC for this rx. Per refill note, this is to last 6 mos. Lab Results Component Value Date URBENZO NONE DETECTED 04/30/2019 UROPIATES NONE DETECTED 04/30/2019 UROXYCODONE NONE DETECTED 04/30/2019 URBARBITUATE NONE DETECTED 04/30/2019 PAINAMPHETAM NONE DETECTED 04/30/2019 PAINCOCAINE NONE DETECTED 04/30/2019 PAINCANNABIN NONE DETECTED 04/30/2019 JOSÉ 04/30/2022 w/Dr. Garcia JOSÉ w/PCP 03/18/2022 Next OV 10/28/[address] Garcia & Dr. Conley's absence, thank you. Are you able to fill? 08/31/2021 08/31/2021 1 Alprazolam 0.25 Mg Tablet 20 20 [place] [id number] [facility] (5471) 0/0 0.50 LME [place] * Telephone Encounter - Uzma Tran - 05/14/2022 3:26 PM EDT 10/28/22 appt * Telephone Encounter - Olvin Rose M.A. - 05/14/2022 11:26 AM EDT Pt nds to schedule appt for rx refills. Will route to veterinary receptionist staff for scheduling. documented in this encounter Plan of Treatment Not on file documented as of this encounter Visit Diagnoses Not on filedocumented in this encounter Care Teams Nutrition Worker Relationship Specialty Start Date End Date Sendy Conley MD [address] [place] [address] PCP - General Internal Medicine 04/24/20 10/24/22 [facility], [address] [address] PCP - General Internal Medicine 10/25/22 documented as of this encounter
--- OUTSIDE RECORDS SUMMARY | 2025-07-23 11:14 | XMS_ITS | Encounter Summary ---
Author Organization [facility] Address [address] [place] [address] Care Team Providers Care Set Up Person Name Role Phone Chapito Mena MD Primary Care Provider Unavail able Sendy Conley MD Primary Care Provider [phone] [facility], Pcp Primary Care Provider Unavailabl e Reason for Visit * Reason Comments E-prescribe Rx Request Encounter Details Date Type Department Care Team Description 05/20/2018 Refill Adult Medicine [address] [address] Chapito Mena MD E-prescribe Rx Request Social [...] encounter Miscellaneous Notes * Telephone Encounter - Jayla Bhatti M.A. - 05/20/2018 1:43 PM EDT Pt was ordered to have a UDS June and it was not done. Message left for patient to return my call. Pt needs to have UDS done. New order needs to be placed once pt has been notified. Script manually faxed * Telephone Encounter - Chapito Mena MD - 05/20/2018 12:12 PM EDT Please get in for urine drug screen. * Telephone Encounter - Sia Peralta C.M.A. - 05/20/2018 10:39 AM EDT JOSÉ 11/26/17 This was last prescribed on 06/23/2017 Pt is contracted Lab Results Component Value Date URINEOXYCOD NEGATIVE 01/10/2016 URBENZO NEGATIVE 01/10/2016 URAMPHETAMIN NEGATIVE 01/10/2016 URMARIJUANA NEGATIVE 01/10/2016 UROPIATES NEGATIVE 01/10/2016 URBARBITUATE NEGATIVE 01/10/2016 URCOCAINE NEGATIVE 01/10/2016 HYDROCODONE Negative 01/10/2016 * Telephone Encounter - Liana Malave - 05/20/2018 10:35 AM EDT Patient would like script to be: E-PRESCRIBED/FAXED TO PHARMACY WHEN WAS THE PATIENT'S LAST APPOINTMENT IN ADULT MEDICINE? 11/26/17 WHEN WAS THE LAST TIME THE PATIENT SAW THEIR PCP? Same as above Does patient have an upcoming appointment? No-unable to reach left [facility] to call for appointment due to refill request. Appt due may 2018 (THE MEDICATION REQUESTED IS ON THE MED LIST ABOVE) All of the medications requested were on the CURRENT MEDS list Did you check the Pharmacy information above?: YES Patient wants: 30 -day supply Is this a mail order prescription request ? NO If the refill is from a FAXED refill request what is the RX # listed on the fax? N/A Patients current insurance carrier is: Payor: [facility] FFS / Plan: [facility] MEDICARE PLUS $20 [place] / Product Type: MEDICARE [id number] documented in this encounter Plan of Treatment Not on file documented as of this encounter Visit Diagnoses Not on filedocumented in this encounter Care Teams Set Up Person Relationship Specialty Start Date End Date Chapito Mena MD PCP - General 04/05/1994 04/23/20 Sendy Conley MD [address] [place] [address] PCP - General Internal Medicine 04/24/20 10/24/22 [place] [address] PCP - General Internal Medicine 10/25/22 documented as of this encounter
--- OUTSIDE RECORDS SUMMARY | 2025-07-23 11:14 | XMS_ITS | Encounter Summary ---
Author Organization [facility] Address [address] [place] [address] Care Team Providers Care Communications Station Manager Name Role Phone Chapito Mena MD Primary Care Provider Unavail able Sendy Conley MD Primary Care Provider [phone] [facility], Pcp Primary Care Provider Unavailabl e Reason for Visit * Reason Onset Date Comments immunizations 07/17/2015 Encounter Details Date Type Department Care Team Description 07/17/2015 Telephone Adult Medicine [address] [address] Chapito Mena MD immunizations Social History Tobacco Use Types Packs/Day Years [...] Telephone Encounter - Jayla Bhatti M.A. - 07/17/2015 1:35 PM EDT Please schedule pt for zostavax and flu shot on chronic nurse, thank you * Telephone Encounter - Chapito Mena MD - 07/17/2015 12:28 PM EDT Orders are in. * Telephone Encounter - Opal Malin - 07/17/2015 11:38 AM EDT Payor: [facility] [employer] [employer] / Plan: [facility] MEDICARE PLUS $20 [place] / Product Type: MEDICARE [id number] Patient is requesting a list of their previous immunizations NO Does the patient have an immunization form to be completed? NO Is the patient requesting immunizations to be administered? YES If yes, which immunizations are needed? Shingles/flu shot/same day?/ins will pay for shingles Is the patient traveling to a foreign country: NO If traveling: Which country: Date patient is leaving: documented in this encounter Plan of Treatment Not on file documented as of this encounter Visit Diagnoses Diagnosis Need for prophylactic vaccination against viral disease- Primary Need for prophylactic vaccination and inoculation against other viral diseases documented in this encounter Care Teams Communications Station Manager Relationship Specialty Start Date End Date Chapito Mena MD PCP - General 04/05/1994 04/23/20 Sendy Conley MD [address] [place] [address] PCP - General Internal Medicine 04/24/20 10/24/22 [facility], [place] [address] PCP - General Internal Medicine 10/25/22 documented as of this encounter
--- OUTSIDE RECORDS SUMMARY | 2025-07-23 11:14 | XMS_ITS | Encounter Summary ---
Author Organization [facility] Address [address] [place] [address] Care Team Providers Care Screen Printing Machine Operator Helper Name Role Phone Chapito Mena MD Primary Care Provider Unavail able Sendy Conley MD Primary Care Provider [facility], Pcp Primary Care [facility] Reason for Visit * Reason Onset Date Comments TEST RESULTS 06/11/2019 Encounter Details Date Type Department Care Team Description 06/11/2019 Telephone Adult Medicine [address] [address] Laura Burrell PA-C [address] [place] [id number] TEST RESULTS Social History Tobacco Use Types Packs/Day Years [...] encounter Miscellaneous Notes * Telephone Encounter - Sapna Murray M.A. - 06/14/2019 10:47 AM EDT Left another message for patient to call back Licha Anoop Ext [phone] * Telephone Encounter - Sapna Murray M.A. - 06/11/2019 4:29 PM EDT Left message for patient to call back Licha Khan Notes Recorded by Laura Burrell PA-C on 2019 at 1:59 PM Please call patient with urine culture results. Sample was contaminated. Advise to take Macrobid asprescribed (had issue at pharmacy, please ask if she has medication). She should call me if sxs dont resolve over the next a few days. documented in this encounter Plan of Treatment Not on file documented as of this encounter Visit Diagnoses Not on filedocumented in this encounter Care Teams Screen Printing Machine Operator Helper Relationship Specialty Start Date End Date Chapito Mena MD PCP - General 04/05/1994 04/23/20 Sendy Conley MD [address] [place] [address] PCP - General Internal Medicine 04/24/20 10/24/22 [facility], [address] [address] PCP - General Internal Medicine 10/25/22 documented as of this encounter
--- OUTSIDE RECORDS SUMMARY | 2025-07-23 11:14 | XMS_ITS | Encounter Summary ---
Author Organization [facility] Address [address] [place] [address] Care Team Providers Care Mechanical Design Engineer Facilities Name Role Phone Chapito Mena MD Primary Care Provider Unavail able Sendy Conley MD Primary Care Provider [phone] [facility], Pcp Primary Care Provider Unavailabl e Encounter Details Date Type Department Care Team Description 10/20/2012 Quality Assurance/R&D Lab Technician Report Medical Records [address] [place] [address] Gopi Zavaleta MD Social History Tobacco Use Types Packs/Day Years [...] on filedocumented in this encounter Care Teams Mechanical Design Engineer Facilities Relationship Specialty Start Date End Date Chapito Mena MD PCP - General 04/05/1994 04/23/20 Sendy Conley MD [address] [place] [address] PCP - General Internal Medicine 04/24/20 10/24/22 [facility], Pcp [address] [place] [address] PCP - General Internal Medicine 10/25/22 documented as of this encounter
--- OUTSIDE RECORDS SUMMARY | 2025-07-23 11:14 | XMS_ITS | Patient Health Record ---
Author Organization [facility] Address [address] [place] [address] Care Team Providers Care Weather Algorithm Scientist Name Role Phone Po Jesenia JACKSON Primary Care Provider Gopi Nolan [phone] Allergies Allergen (clinical drug ingredient) Drug/Non Drug [...] MG TAKE 1 TABLET BY MOUTH DAILY Oral; Duration: 90 Active Triamterene-HCTZ 75-50 MG 1 TABLET BY MO UTH DAILY FOR 90 DAYS Oral; Duration: 90 Active Problems Problem Type SNOMED Code ICD Code Onset Dates Problem Status W/U Status Risk Notes Problem Colon cancer screening (800952062) Colon cancer screening (Z12.11) Active confirmed Problem History of adenomatous polyp of colon (087701117) History of adenomatous polyp of colon (Z86.010) Active confirmed Problem History of polyp of colon (situation) (871543733) Personal history of colonic polyps (Z86.010) Active confirmed Problem Pre-procedure evaluation check (081451001) Encounter for other preprocedural examination (Z01.818) Active confirmed Problem Diverticular disease of colon (964285865) Diverticulosis of large intestine without perforation or abscess without bleeding (K57.30) Active confirmed Encounters Encounter Location Date Provider Diagnosis [facility] [address] [place] [address] 2025 Gopi Zavaleta Plan Of Treatment Pending Test Test Name Order Date Pathology 03/01/2024 Future Test Test Name Order Date COLONOSCOPY 10/14/2012 COLONOSCOPY 12/02/2023 Insurance Providers Payer Name Payer Address Payer Phone Subscriber Number Group Number Insured Name Patient Relationship to Insured Coverage Start Date Coverage End Date [employer] [address] [place] [address] [id number] MALISSA TABARES Self - patient is the insured Medical (General) History Medical History History ICD Code Colonoscopy 05/18/2007-with removal of a tubular adenoma Anxiety HTN Hyperlipidemia Denies SD,DM,CVA,Lung disease,renal dise ase Negative screening colonoscopy in 2012 Surgical History Surgery Date(Month/Year) Rectocele surgery Left Eye surgery for lazy eye
--- OUTSIDE RECORDS SUMMARY | 2025-07-23 11:14 | XMS_ITS | Encounter Summary ---
Author Organization [facility] Address [address] [place] [address] Care Team Providers Care Rock Crusher Operator Name Role Phone Chapito Mena MD Primary Care Provider Unavail able Sendy Conley MD Primary Care Provider [phone] [facility], Pcp Primary Care Provider Unavailabl e Reason for Visit * Reason Onset Date Comments refill request 04/08/2005 EMMA Encounter Details Date Type Department Care Team Description 04/08/2005 Telephone OBGYN - [place] [address] [place] [address] Tigre Morales MD refill request (EMMA) Social History Tobacco Use Types Packs/Day Years Used Date Smoking Tobacco: Never Assessed Sex Assigned at Date Recorded Not on file Job Start Date Occupation Industry Not on file Not on file Not on file documented as of this encounter Miscellaneous Notes * Telephone Encounter - 04/08/2005 3:19 PM EDTrefill of cream called into [facility] for pt per dr morales. bandar mario strap sewer * Telephone Encounter - 04/08/2005 12:20 PM EDTThe chart was requested for review.SGS * Telephone Encounter - 04/08/2005 10:50 AM EDT RX REFILLS MED NAME: betamethasone valerate cream DOSAGE: # OF TABLETS: INSTRUCTIONS: PHARMACY NAME AND TEL#: [facility] [phone] INDICATE WHETHER IT IS: Call to outside pharmacy WHEN WAS THE PATIENT'S LAST ADULT MEDICINE APPOINTMENT? IS THE DOCTOR HERE TODAY?: YES CAN THE MESSAGE WAIT UNTIL THE DOCTOR RETURNS?: NO HAS PATIENT BEEN TOLD THAT THE PRESCRIPTION WILL NOT BE COMPLETED UNTIL THE END OF THE DAY? YES Payor: DEX/ASHWINI COMM Plan: HMO BLUE $20 CAP Product Type: HMO PRE-PAID documented in this encounter Plan of Treatment Not on file documented as of this encounter Visit Diagnoses Not on filedocumented in this encounter Care Teams Rock Crusher Operator Relationship Specialty Start Date End Date Chapito Mena MD PCP - General 04/05/1994 04/23/20 Sendy Conley MD [address] [place] [address] PCP - General Internal Medicine 04/24/20 10/24/[address] [address] PCP - General Internal Medicine 10/25/22 documented as of this encounter
--- OUTSIDE RECORDS SUMMARY | 2025-07-23 11:14 | XMS_ITS | Patient Health Record ---
Author [facility] Address [address] [place] [address] Care Team Providers Care Appliance Servicer Name Role Phone Chapito Mena MD Primary Care Provider Unavail able Black, Maribel Unavailable [phone] Allergies Allergen (clinical drug ingredient) Drug/Non Drug [...] Treatment Pending Test Test Name Order Date [id number] NAIL, 6 OR MORE 04/29/2014 [id number] NAIL, 6 OR MORE 08/31/2015 [id number] NAIL, 6 OR MORE 02/29/2016 [id number] NAIL, 6 OR MORE 09/05/2016 [id number] Plate 04/29/2014 [id number] Plate Each Additional 09/2013 Insurance Providers Payer Name Payer Address Payer Phone Subscriber Number Group Number Insured Name Patient Relationship to Insured Coverage Start Date Coverage End Date [employer] Medicare [id number] [address] [address] [place] [address] [id number] Geraldine Best Self - patient is the insured Medical (General) History Medical History History ICD Code anxiety high blood pressure scarlet fever measles chicken pox Mumps Surgical History Surgery Date(Month/Year) eye surgery
[2025-07-23 13:59] LABS: Hematocrit 36.1 % (37.0-47.0); Hemoglobin 12.0 g/dl (12.0-16.0); Mean Corpuscular HGB Conc 33.2 g/dl (31.0-35.0); Mean Corpuscular Hemoglobin 30.1 pg (27.0-33.0); Mean Corpuscular Volume 90.5 fL (80.0-98.0); NRBC Abs Auto 0.000 X10*3/uL (0.0-0.012); NRBC Pct Auto 0.0 /100WBC (0.0-0.2); Platelet Count 282 X10*3/uL (160-400); Red Blood Count 3.99 X10*6/uL (4.20-5.50); White Blood Count 6.3 X10*3/uL (4.8-10.8)
[2025-07-23 14:30] LABS: Alanine Aminotransferase 24 U/L (0-31); Albumin Level 4.2 g/dL (3.5-5.0); Alkaline Phosphatase 57 U/L (39-117); Anion Gap 13 (12-20); Aspartate Amino Transferase 25 U/L (5-31); Blood Urea Nitrogen 30 mg/dL (9-16); Calcium 8.9 mg/dL (8.4-10.2); Carbon Dioxide 25 mmol/L (22-29); Chloride 107 mmol/L (96-108); Estimated Glomerular Filt Rate 46; Potassium 4.2 mmol/L (3.3-5.1); Sodium 141 mmol/L (135-145); Total Protein 6.8 g/dL (6.5-8.0)
== END 2025-07-23 11:12 | disposition home or self-care (01) ==
LOC: HO.HMGCLDS 11:11
PROVIDERS: PCP Internal Medicine; Visit Provider Internal Medicine
DX: Z01.818 Encounter for other preprocedural examination (principal)
CPT/HCPCS: 36415; 80053; 85027

== ENCOUNTER 2025-08-01 10:41 | Outpatient (AMB) | payer MEDICARE, SELFPAY ==
--- OUTSIDE RECORDS SUMMARY | 2024-03-01 04:50 | XMS_ITS ---
Author Organization [facility] Address [address] [place] [phone] Care Team Providers Care Edge Blacker Name Role Phone Po Jesenia JACKSON Primary Care Provider Gopi Nolan [phone] REASON FOR VISIT screening, hx polyps Problems Problem Type SNOMED Code ICD Code Onset Dates Problem Status W/U Status Risk Notes Problem Diverticular disease of colon (624926890) Diverticulosis of large intestine without perforation or abscess without bleeding (K57.30) Active confirmed Encounters Encounter Location Date Provider Diagnosis [facility] [place] [address] [place] [phone] 03/01/2024 Gopi Zavaleta Encounter for scre ening [...] Notes * MALISSA TABARESDOB:1950 (75 yo F)Acc No.[id number]:03/01/2024 COLON WITH MAC Patient: Robbie MALISSA MOURA Provider: Khari Zavaleta MD :1950 A ge:73 Y S ex:Female Date:03/01/2024 Address:[address] [facility] Pcp:Jesenia Winkler MD Subjective: * Chief Complaints: * 1 . Screening, hx polyps. * Medical History: Objective: * Vitals: Assessment: * Assessment: 1. E ncounter for screening colonoscopy - Z12.11 (Primary) 2 . C olon polyps - K63.5 3 . D iverticulosis of large intestine without perforation or abscess without bleeding - K57.30 4 . I nternal hemorrhoids - K64.8 Plan: * Treatment: * Procedure Codes: 4 5380 COLONOSCOPY AND BIOPSY, Modifiers: PT * * The named appointment provid er may or may not be the originator of this progress note, and it is not deemed complete until electronically signed by the appointment provider. Sign off status: Pending * Provider: Khari Zavaleta MD Date: 0 03/01/2024 Generated for Savanna brown/Ophelia/Vangiesmitting on: 10/01/2024 01:03 PM EST
--- OUTSIDE RECORDS SUMMARY | 2025-06-09 05:40 | XMS_ITS ---
Author Organization [facility] Address [address] [place] [address] Care Team Providers Care Crane Operator Name Role Phone Jesenia Winkler MD Primary Care Provider Gopi Nolan [phone] REASON FOR VISIT INFECTIOUS GASTROENTERITIS, COLITIS Encounters Encounter Location Date Provider Diagnosis [facility] [address] [place] [address] 2025 Gopi Zavaleta Plan Of Treatment No Information Progress Notes * MALISSA TABARESDOB:1950 (75 yo F)Acc No.[id number] Progress Notes Patient: MALISSA VILLA Provider: Khari Zavaleta MD :1950 A ge:75 Y S ex:Female Date:2025 Address: [address] [facility] Pcp:Jesenia Winkler MD Subjective: * Chief Complaints: * 1 . INFECTIOUS GASTROENTERITIS, COLITIS. * Medical History: Objective: * Vitals: Assessment: Plan: * Treatment: * * The named appointment provid er may or may not be the originator of this progress note, and it is not deemed complete until electronically signed by the appointment provider. Sign off status: Pending * Provider: Khari Zavaleta MD Date: 0 2025 Generated for Savanna brown/Ophelia/eTransmitting on: 10/01/2024 01:03 PM EST
--- OUTSIDE RECORDS SUMMARY | 2025-06-15 10:00 | XMS_ITS ---
Author Organization [facility] Address [address] [place] [address] Care Team Providers Care Stacker Driver Name Role Phone Jesenia Winkler MD Primary Care Provider Gopi Nolan [phone] REASON FOR VISIT Patient presents today for INFECTIOUS GASTROENTERITIS, COLITIS Encounters Encounter Location Date Provider Diagnosis [facility] [address] [place] [phone] 06/15/2025 Gopi Zavaleta Plan Of Treatment No Information Progress Notes * MALISSA TABARESDOB:1950 (75 yo F)Acc No.[id number]:06/15/2025 Progress Notes Patient: MALISSA VILLA Provider: Khari Zavaleta MD :1950 A ge:75 Y S ex:Female Date:06/15/2025 [facility] Pcp:Jesenia Winkler MD Subjective: * Chief Complaints: * 1 . Patient presents today for INFECTIOUS GASTROENTERITIS, COLITIS. * Medical History: Objective: * Vitals: Assessment: Plan: * Treatment: * * The named appointment provid er may or may not be the originator of this progress note, and it is not deemed complete until electronically signed by the appointment provider. Sign off status: Pending * Provider: Khari Zavaleta MD Date: 0 06/15/2025 Generated for Savanna brown/Ophelia/eTransmitting on: 10/01/2024 01:03 PM EST
--- NOTE | 2025-08-01 10:56 | A.OFFPC_ITS ---
Vital Signs 08/01/25 10:57 Height 5 ft 1 in Weight 149 lb BMI 28.2 BP 138/60 Blood Pressure Location Rt brachial Position Sitting Temp 97.1 F Temp Source Temporal Artery Scan Intake Visit Reasons: pain in both legs Intake Note: Patient is here to follow up on Pain in both legs. 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 Required: No Is/It Project Manager: Present Accompanied by: Spouse Allergies Sulfa (Sulfonamide Antibiotics) Allergy (Severe, Verified 08/01/25 10:57) Anaphylaxis atenolol Adverse Reaction (Intermediate, Verified 08/01/25 10:57) bradycardia pantoprazole Adverse Reaction (Intermediate, Verified 08/01/25 10:57) Diarrhea Tobacco use date assessed: 08/01/25 Fall risk assessment: No Falls in past year Last assessed Fall Risk: 08/01/25 Dental Screening Dental Screen Date: 12/01/24 HPI HPI Comments History of Present Illness Details The patient is a 75-year-old female presenting with muscular pain and sensory disturbance in her legs. The symptoms began approximately two to three weeks ago, initiated during a visit to the [facility]. Initial symptoms included tender and aching areas in bilateral thighs, especially prominent at night. The patient notes intermittent tingling and soreness, without sharp pain, that worsens with massage but feels better with gentle touch. There was no specific activity she attributes as a trigger, although she engaged in some squats and rearrangement of items during that time. Increased sensitivity is noted upon standing after sitting for long periods, along with reports of low back discomfort attributed to aging as she states. Denies low back pain weakness, hip pain, shoulder neck pain. Denies new medications. Has tried cyclobenzaprine and ibuprofen to address her symptoms, that only provided temporary relief. [facility] Medical History Colon cancer screening Anxiety HTN (hypertension) GERD (gastroesophageal reflux disease) Surgical History H/O colonoscopy Hx of tonsillectomy H/O eye surgery H/O rectocele repair Family History Father No problems noted. Mother No problems noted. Sister No problems noted. Daughter No problems noted. Daughter No problems noted. Social History Housing: House Alcohol intake: current Alcohol intake frequency: 0-2 drinks per day Comment: Q day glass of wine Patient Tobacco Use Status: Former Tobacco user Tobacco use type: Cigarette Years Smoked: quit 1984 e-Cigarette/Vaping Use: Never Used Second Hand Smoke Exposure: Yes service: No Current occupational status: retired Cognitive needs: No Hearing needs: No Vision needs: Yes (Glasses) Questionnaire PHQ-9 Over the last 2 weeks, how often have you been bothered by any of the following problems? 1. Little interest or pleasure in doing things: several days Depression Screening Interpretation: Positive Depression Screening Done: Yes Source: Developed by Drs. Gopi Rodríguez, Estefani Diggs, Juancho Rivero and colleagues, with an educational marquis from [employer]. Thrive Questionnaire Date Thrive assessed: 02/09/25 I am a: Patient What is your living situation today?: I have a steady place to live Within the past 12 months, did the food you bought not last and you didn't have the money to get more?: Never true Within the past 12 months, did you worry whether your food would run out before you got money to buy more?: Never true Do you have trouble paying for medicines?: No Do you have trouble getting transportation to medical appointments?: No Do you have trouble paying your heating and electricity bill?: No Do you have trouble taking care of your child, family member or friend?: No Do you have trouble with day-to-day activities such as bathing, preparing meals, shopping, managing finances, etc.?: No Are you currently unemployed and looking for a job?: No Are you interested in more education?: No Please select the resources that you would like help with: None Currently or been in a relationship where the following occur: No concerns repo rted THRIVE Score: 0 WILLY-7 AMB Questionnaire WILLY-7 Date WILLY - 7 assessed: 02/16/25 Source: Developed by Drs. Gopi Rodríguez, Juancho Levy and colleagues, with an educational marquis from [employer]. Physical exam (Primary Care) Vital Signs: Last Vital Signs Temp 97.1 F 08/01/25 10:57 BP 138/60 11/03/25 10:57 General: Well-appearing, alert, oriented ?3, in no acute distress. Bilateral lower extremity: No swelling, erythema. Generalized tenderness upon palpation of the entire lower extremity. No muscle wasting. No focal neurological deficit. Strength and sensation intact in both lower extremities. BMI result Body Mass Index 28.2 Tobacco/Smoking Status: Tobacco use Status Tobacco use date assessed 08/01/25 08/01/25 11:03 Patient Tobacco Use Status Former Tobacco user 08/01/25 11:03 Tobacco use type Cigarette 08/01/25 11:03 e-Cigarette/Vaping Use Never Used 08/01/25 11:03 Depression Screening Interpretation: Positive Thrive Assessment: Date of Thrive Assessment Date Thrive assessed 02/09/25 08/01/25 11:03 Currently or been in a relationship where the following occur: No concerns reported Coding Level of Care Code Est Pt Level 4 (77106) Diagnoses Muscle ache of extremity M79.18 Hyperlipidemia, unspecified hyperlipidemia type E78.5 Hyperlipidemia type: unspecified Tingling in extremities R20.2 Assessment & Plan Assessment & Plan (1) Muscle ache of extremity: Code(s): M79.18 - Myalgia, other site Plan: Patient is presenting with 2 weeks history of myalgia in bilateral thighs after a trip to the [facility], most prominent night, associated with intermittent tingling and soreness without sharp pain. Ibuprofen cyclobenzaprine only provided temporary relief. - will obtain iron panel, magnesium and vitamin B12 levels. - meloxicam 7.5 mg b.i.d. for 5 days - use magnesium supplements QHS - patient has follow-up appointment with Dr. Winkler in 2 weeks (2) Hyperlipidemia: Code(s): E78.5 - Hyperlipidemia, unspecified Category: Medical Qualifiers: Hyperlipidemia type: unspecified Qualified Code(s): E78.5 - Hyperlipidemia, unspecified Plan: Repeat lipid panel (3) Tingling in extremities: Code(s): R20.2 - Paresthesia of skin Category: Medical Plan: As above Orders: Orders IRON PROFILE Today G25.81 - Restless legs syndrome Vitamin B12 Today R20.2 - Paresthesia of skin Magnesium Today R25.2 - Cramp and spasm Lipid Panel with Reflex Today E78.5 - Hyperlipidemia, unspecified Medications: New meloxicam 7.5 mg PO DAILY 5 tabs 0RF 5 days magnesium oxide 250 mg PO BEDTIME 30 tabs 0RF
[2025-08-01 10:57] VITALS: BP 138/60; TEMP 36.2; BMI 28.2
--- OUTSIDE RECORDS SUMMARY | 2025-08-01 13:04 | XMS_ITS | Patient Health Record ---
Author Organization [facility] Address [address] [place] [address] Care Team Providers Care Welfare Interviewer Name Role Phone Po Jesenia JACKSON Primary Care Provider Gopi Nolan [phone] Allergies Allergen (clinical drug ingredient) Drug/Non Drug [...] Status Risk Notes Problem Colon cancer screening (636323983) Colon cancer screening (Z12.11) Active confirmed Problem History of adenomatous polyp of colon (742678987) History of adenomatous polyp of colon (Z86.010) Active confirmed Problem History of polyp of colon (situation) (878555117) Personal history of colonic polyps (Z86.010) Active confirmed Problem Pre-procedure evaluation check (553239283) Encounter for other preprocedural examination (Z01.818) Active confirmed Problem Diverticular disease of colon (133951543) Diverticulosis of large intestine without perforation or abscess without bleeding (K57.30) Active confirmed Encounters Encounter Location Date Provider Diagnosis [facility] [address] [place] [address] 2025 Gopi Zavaleta Plan Of Treatment Pending Test Test Name Order Date Pathology 03/01/2024 Future Test Test Name Order Date COLONOSCOPY 10/14/2012 COLONOSCOPY 12/02/2023 Insurance Providers Payer Name Payer Address Payer Phone Subscriber Number Group Number Insured Name Patient Relationship to Insured Coverage Start Date Coverage End Date [facility] [address] [place] [address] [id number] MALISSA TABARES Self - patient is the insured Medical (General) History Medical History History ICD Code Colonoscopy 05/18/2007-with removal of a tubular adenoma Anxiety HTN Hyperlipidemia Denies [place],DM,CVA,Lung disease,renal dise ase Negative screening colonoscopy in 2012 Surgical History Surgery Date(Month/Year) Rectocele surgery Left Eye surgery for lazy eye
--- OUTSIDE RECORDS SUMMARY | 2025-08-01 13:04 | XMS_ITS | Patient Health Record ---
[facility] Address [address] [place] [address] Care Team Providers Care Environmental Services Technician Name Role Phone Chapito Mena MD Primary Care Provider Unavail able Black, Maribel Unavailable [phone] Allergies Allergen (clinical drug ingredient) Drug/Non Drug [...] Treatment Pending Test Test Name Order Date [id number] NAIL, 6 OR MORE 04/29/2014 [id number] NAIL, 6 OR MORE 08/31/2015 [id number] NAIL, 6 OR MORE 02/29/2016 [id number] NAIL, 6 OR MORE 09/05/2016 [id number] Plate 04/29/2014 [id number] Plate Each Additional 09/2013 Insurance Providers Payer Name Payer Address Payer Phone Subscriber Number Group Number Insured Name Patient Relationship to Insured Coverage Start Date Coverage End Date [employer] Medicare [id number] [address] [address] [place] [address] [id number] Geraldine Best Self - patient is the insured Medical (General) History Medical History History ICD Code anxiety high blood pressure scarlet fever measles chicken pox Mumps Surgical History Surgery Date(Month/Year) eye surgery
--- OUTSIDE RECORDS SUMMARY | 2025-08-01 13:05 | XMS_ITS | Clinical Summary ---
Author Organization [facility] Address [address] [place] [address] Care Team Providers Care Assistant Branch Manager Name Role Phone Sendy Conley MD Primary Care Provider [phone] Allergies Active Allergy Reactions Criticality Noted Date [...] kidney disease) stage 3, GFR 30-59 ml/min ([facility] V24, [facility] V28) 05/16/2015 Diverticulosis 04/21/2013 Overview [...] Site/Laterality Comments OTHER SURGICAL HISTORY 1960 PROCEDURE: TX UNLISTED PROCEDURE EXTRAOCULAR MUSCLE OTHER SURGICAL HISTORY 1970 PROCEDURE: TX REPAIR RECTOCELE SEPARATE PROCEDURE TONSILLECTOMY 1951 PROCEDURE: HISTORICAL TONSILLECTOMY COLONOSCOPY 02/18/13 PROCEDURE: HISTORICAL COLONOSCOPY MULTIPLE TOOTH EXTRACTIONS PROCEDURE: HISTORICAL DENTAL EXTRACTION OTHER SURGICAL HISTORY 11/2018 PROCEDURE: MAMMOGRAM Medical History Medical History Date Comments Essential hypertension, benign D X:Essential hypertension, benign Pure hypercholesterolemia DX:Pur e hypercholesterolemia 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/13/2012 DX:Otitis parts clerk a History of malignant neoplas m of [...] (World Health Organization Fracture Risk Assessment) [facility] Department of Internal Medicine recommends using [...] screening schedule based on [place] [facility] October 17, 2011 for patients [...] (World Health Organization Fracture Risk Assessment) [facility] Department of Internal Medicine recommendsusing National [...] Recently Relevant to Health Maintenance Care Teams Assistant Branch Manager Relationship Specialty Start Date End Date Sendy Conley MD [address] [place] [address] PCP - General Internal Medicine 04/24/20
== END 2025-08-01 11:29 | disposition home or self-care (01) ==
LOC: HO.HMCH 10:41
PROVIDERS: PCP Internal Medicine; Visit Provider Student in an Organized Health Care Education/Training Program
DX: M79.18 Myalgia, other site (principal); E78.5 Hyperlipidemia, unspecified; R20.2 Paresthesia of skin

== ENCOUNTER → 2025-08-01 10:41 | Outpatient (BNVA) | payer MEDICARE, SELFPAY | PROVIDERS: PCP Internal Medicine; Visit Provider Student in an Organized Health Care Education/Training Program | DX: M79.18 Myalgia, other site (principal); E78.5 Hyperlipidemia, unspecified; G25.81 Restless legs syndrome | CPT/HCPCS: 99212 ==

== ENCOUNTER 2025-08-22 09:15 | Outpatient (REF) | payer MEDICARE, SELFPAY ==
--- OUTSIDE RECORDS SUMMARY | 2024-03-01 04:50 | XMS_ITS ---
Author Organization [facility] Address [address] [place] [phone] Care Team Providers Care Chief Executive Or Managing Director Name Role Phone Po Jesenia JACKSON Primary Care Provider Gopi Nolan [phone] REASON FOR VISIT screening, hx polyps Problems Problem Type SNOMED Code ICD Code Onset Dates Problem Status W/U Status Risk Notes Problem Diverticular disease of colon (036302654) Diverticulosis of large intestine without perforation or abscess without bleeding (K57.30) Active confirmed Encounters Encounter Location Date Provider Diagnosis [facility] [place] [place] Out[place] [address] [place] [phone] 03/01/2024 Gopi Zavaleta Encounter for scre ening [...] Notes * MALISSA TABARESDOB:1950 (75 yo F)Acc No.[id number]:03/01/2024 COLON WITH MAC Patient: Robbie MALISSA MOURA Provider: Khari Zavaleta MD :1950 A ge:73 Y S ex:Female Date:03/01/2024 Address:[address] [facility] Pcp:Jesenia Winkler MD Subjective: * Chief Complaints: [...] Modifiers: PT Billing Information: * Procedure Codes: 36408 COLONOSCOPY AND BIOPSY. Modifiers: PT * The named appointment provid er may or may not be the originator of this progress note, and it is not deemed complete until electronically signed by the appointment provider. Sign off status: Pending * Provider: Khari Zavaleta MD Date: 0 03/01/2024 Generated for Savanna brown/Ophelia/Vangiesmitting on: 1 10/22/2024 10:19 AM EST
--- OUTSIDE RECORDS SUMMARY | 2025-06-09 05:40 | XMS_ITS ---
Author Organization [facility] Address [address] [place] [address] Care Team Providers Care Oracle Endeca Consultant Name Role Phone Jesenia Winkler MD Primary Care Provider Gopi Nolan [phone] REASON FOR VISIT INFECTIOUS GASTROENTERITIS, COLITIS Encounters Encounter Location Date Provider Diagnosis [facility] [address] [place] [address] 2025 Gopi Zavaleta Plan Of Treatment No Information Progress Notes * MALISSA TABARESDOB:1950 (75 yo F)Acc No.[id number] Progress Notes Patient: MALISSA VILLA Provider: Khari Zavaleta MD :1950 A ge:75 Y S ex:Female Date:2025 Address: [address] [id number] Pcp:Jesenia Winkler MD Subjective: * Chief Complaints: * I NFECTIOUS GASTROENTERITIS, COLITIS * The named appointment provid er may or may not be the originator of this progress note, and it is not deemed complete until electronically signed by the appointment provider. Sign off status: Pending * Provider: Khari Zavaleta MD Date: 0 2025 Generated for Savanna brown/Faандрейg/eTransmitting on: 1 10/22/2024 10:19 AM EST
--- OUTSIDE RECORDS SUMMARY | 2025-06-15 10:00 | XMS_ITS ---
Author Organization [facility] Address [address] [place] [address] Care Team Providers Care Soft Metals Engraver Hand Name Role Phone Jesenia Winkler MD Primary Care Provider Gopi Nolan [phone] REASON FOR VISIT Patient presents today for INFECTIOUS GASTROENTERITIS, COLITIS Encounters Encounter Location Date Provider Diagnosis [facility] [address] [place] [address] 06/15/2025 Gopi Zavaleta Plan Of Treatment No Information Progress Notes * MALISSA TABARESDOB:1950 (75 yo F)Acc No.[id number]:06/15/2025 Progress Notes Patient: MALISSA VILLA Provider: Khari Zavaleta MD :1950 A ge:75 Y S ex:Female Date:06/15/2025 Address: [id number] Pcp:Jesenia Winkler MD Subjective: * Chief Complaints: * P atient presents today for INFECTIOUS GASTROENTERITIS, COLITIS * The named appointment provid er may or may not be the originator of this progress note, and it is not deemed complete until electronically signed by the appointment provider. Sign off status: Pending * Provider: Khari Zavaleta MD Date: 0 06/15/2025 Generated for Printi ng/Faандрейg/eTransmitting on: 1 10/22/2024 10:19 AM EST
--- OUTSIDE RECORDS SUMMARY | 2025-08-22 10:19 | XMS_ITS | Patient Health Record ---
Author Organization [facility] Address [address] [place] [address] Care Team Providers Care Auto Damage Trainee Name Role Phone Jesenia Winkler MD Primary Care Provider Gopi Nolan [phone] Allergies Allergen (clinical drug ingredient) Drug/Non Drug Allergy documented on EMR Reaction Allergy Type Onset Date Status Substance with sulfonamide structure and antibacterial mechanism of action (substance) Sulfa (uncoded) Unknown Allergy Active Mold Unknown Allergy Active Pollen Pollen Unknown Allergy Active Reason For Referral No Information Medications Medication SIG (Take, Route, Frequency, Duration) Notes Start Date End Date Status Vitamin D Active Zinc Active Calcium Active potassium Active Simvastatin Active Citalopram Hydrobromide 20 MG Tablet TAKE 1 TABLET BY MOUTH DAILY Oral; Duration: 90 Active Triamterene-HCTZ 75-50 MG Tablet 1 TABLET BY MOUTH DAILY FOR 90 DAYS Oral; Duration: 90 Active Social History Social History Additional Details Category Social Info Options Details Miscellaneous: Marital status: 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 Section Notes: Nonsmoker; 1 glass of wine w ith dinner Nonsmoker; 1 glass of wine w ith dinner Problems Problem Type SNOMED Code ICD Code Onset Dates Problem Status W/U Status Risk Notes Problem Colon cancer screening (192532732) Colon cancer screening (Z12.11) Active confirmed Problem History of adenomatous polyp of colon (191909666) History of adenomatous polyp of colon (Z86.010) Active confirmed Problem History of polyp of colon (situation) (935095706) Personal history of colonic polyps (Z86.010) Active confirmed Problem Pre-procedure evaluation check (572120815) Encounter for other preprocedural examination (Z01.818) Active confirmed Problem Diverticular disease of colon (461443268) Diverticulosis of large intestine without perforation or abscess without bleeding (K57.30) Active confirmed Encounters Encounter Location Date Provider Diagnosis [facility] [address] [place] [address] 2025 Gopi Zavaleta Plan Of Treatment Pending Test Test Name Order Date Pathology 03/01/2024 Future Test Test Name Order Date COLONOSCOPY 10/14/2012 COLONOSCOPY 12/02/2023 Insurance Providers Payer Name Payer Address Payer Phone Subscriber Number Group Number Insured Name Patient Relationship to Insured Coverage Start Date Coverage End Date [facility] [address] [place] [address] [id number] MALISSA TABARES Self - patient is the insured Medical (General) History Medical History History ICD Code Colonoscopy 05/18/2007-with removal of a tubular adenoma Anxiety HTN Hyperlipidemia Denies [place],DM,CVA,Lung disease,renal dise ase Negative screening colonoscopy in 2012 Surgical History Surgery Date(Month/Year) Rectocele surgery Left Eye surgery for lazy eye
--- OUTSIDE RECORDS SUMMARY | 2025-08-22 10:20 | XMS_ITS | Patient Health Record ---
Author [facility] Address [address] [place] [address] Care Team Providers Care Passenger Attendant Name Role Phone Chapito Mena MD Primary Care Provider Unavail able Black, Maribel Unavailable [phone] Allergies Allergen (clinical drug ingredient) Drug/Non Drug [...] Treatment Pending Test Test Name Order Date [id number] NAIL, 6 OR MORE 08/31/2015 [id number] NAIL, 6 OR MORE 02/29/2016 [id number] NAIL, 6 OR MORE 09/05/2016 [id number] NAIL, 6 OR MORE 04/29/2014 [id number] Plate 04/29/2014 [id number] Plate Each Additional 09/2013 Insurance Providers Payer Name Payer Address Payer Phone Subscriber Number Group Number Insured Name Patient Relationship to Insured Coverage Start Date Coverage End Date [employer] Medicare [id number] [address] [address] [place] [address] [id number] Geraldine Best Self - patient is the insured Medical (General) History Medical History History ICD Code anxiety high blood pressure scarlet fever measles chicken pox Mumps Surgical History Surgery Date(Month/Year) eye surgery
[2025-08-22 10:27] LABS: Cholesterol 237 mg/dL (<200); HDL Cholesterol 70 mg/dL (>40); Iron 84 mcg/dL (30-160); Magnesium 1.5 mg/dL (1.6-2.6); Percent Iron Saturation 34 % (15-50); Total Iron Binding Capacity 249 mcg/dL (228-428); Triglycerides 146 mg/dL (<150); Unsaturated Iron Binding 165 ug/dL
[2025-08-22 11:21] LABS: Reflex LDLD? No
[2025-08-22 11:39] LABS: Vitamin B12 568 pg/mL (200-900)
== END 2025-08-22 09:16 | disposition home or self-care (01) ==
LOC: HO.HMGCLDS 09:15
PROVIDERS: PCP Internal Medicine; Visit Provider Student in an Organized Health Care Education/Training Program
DX: G25.81 Restless legs syndrome (principal); R20.2 Paresthesia of skin; E78.5 Hyperlipidemia, unspecified; Z13.0 Encounter for screening for diseases of the blood and blood-forming organs and certain disorders involving the immune mechanism
CPT/HCPCS: 36415; 80061; 82607; 83540; 83735

== ENCOUNTER 2025-08-24 09:03 | Outpatient (AMB) | payer MEDICARE, SELFPAY ==
--- OUTSIDE RECORDS SUMMARY | 2024-03-01 04:50 | XMS_ITS ---
Author Organization [facility] Address [address] [place] [id number] Care Team Providers Care Golf Course Ranger Name Role Phone Po Jesenia JACKSON Primary Care Provider Gopi Nolan [phone] REASON FOR VISIT screening, hx polyps Problems Problem Type SNOMED Code ICD Code Onset Dates Problem Status W/U Status Risk Notes Problem Diverticular disease of colon (002050835) Diverticulosis of large intestine without perforation or abscess without bleeding (K57.30) Active confirmed Encounters Encounter Location Date Provider Diagnosis [facility] [place] Out[place] [address] [place] [phone] 03/01/2024 Gopi Zavaleta Encounter for scre ening colonoscopy Z12.11 ; Colon polyps K63.5 ; Diverticulosis of large intestine without perforation or abscess without bleeding K57.30 and Internal hemorrhoids K64.8 Assessments Encounter Date Diagnosis (ICD Code) Assessment Notes Treatment Notes Treatment Clinical Notes Section Notes 03/01/2024 Encounter for screening colonoscopy (ICD-10 - Z12.11) 03/01/2024 Colon polyps (ICD-10 - K63.5) 03/01/2024 Diverticulosis of large intestine without perforation or abscess without bleeding (ICD-10 - K57.30) 03/01/2024 Internal hemorrhoids (ICD-10 - K64.8) Plan Of Treatment No Information Progress Notes * MALISSA TABARESDOB:1950 (75 yo F)Acc No.[id number]:03/01/2024 COLON WITH MAC Patient: MALISSA VILLA Provider: Khari Zavaleta MD :1950 A ge:73 Y S ex:Female Date:03/01/2024 Address:[address] [id number] Pcp:Jesenia Winkler MD Subjective: * Chief Complaints: * S creening, hx polyps Assessment: * Assessment: 1. E ncounter for screening colonoscopy - Z12.11 (Primary) 2 . C olon polyps - K63.5 3 . D iverticulosis of large intestine without perforation or abscess without bleeding - K57.30 4 . I nternal hemorrhoids - K64.8 Plan: * Procedure Codes: 4 5380 COLONOSCOPY AND BIOPSY, Modifiers: PT Billing Information: * Procedure Codes: 29979 COLONOSCOPY AND BIOPSY. Modifiers: PT * The named appointment provid er may or may not be the originator of this progress note, and it is not deemed complete until electronically signed by the appointment provider. Sign off status: Pending * Provider: Khari Zavaleta MD Date: 0 03/01/2024 Generated for Savanna brown/Ophelia/Vangiesmitting on: 10/24/2024 09:43 AM EST
--- OUTSIDE RECORDS SUMMARY | 2025-06-09 05:40 | XMS_ITS ---
Author Organization [facility] Address [address] [place] [address] Care Team Providers Care Java Manager Name Role Phone Jesenia Winkler MD Primary Care Provider Gopi Nolan [phone] REASON FOR VISIT INFECTIOUS GASTROENTERITIS, COLITIS Encounters Encounter Location Date Provider Diagnosis [facility] [address] [place] [phone] 2025 Gopi Zavaleta Plan Of Treatment No Information Progress Notes * MALISSA TABARESDOB:1950 (75 yo F)Acc No.[id number]:2025 Progress Notes Patient: MALISSA VILLA Provider: Khari Zavaleta MD :1950 A ge:75 Y S ex:Female Date:2025 Address: [id number] Pcp:Jesenia Winkler MD Subjective: * Chief Complaints: * I NFECTIOUS GASTROENTERITIS, COLITIS * The named appointment provid er may or may not be the originator of this progress note, and it is not deemed complete until electronically signed by the appointment provider. Sign off status: Pending * Provider: Khari Zavaleta MD Date: 0 2025 Generated for Savanna brown/Faандрейg/eTransmitting on: 1 10/24/2024 09:42 AM EST
--- OUTSIDE RECORDS SUMMARY | 2025-06-15 10:00 | XMS_ITS ---
Author Organization [facility] Address [address] [place] [address] Care Team Providers Care Performance Solutions Specialist Name Role Phone Jesenia Winkler MD Primary Care Provider Gopi Nolan [phone] REASON FOR VISIT Patient presents today for INFECTIOUS GASTROENTERITIS, COLITIS Encounters Encounter Location Date Provider Diagnosis [facility] [address] [place] [phone] 06/15/2025 Gopi Zavaleta Plan Of Treatment No Information Progress Notes * MALISSA TABARESDOB:1950 (75 yo F)Acc No.[id number]:06/15/2025 Progress Notes Patient: MALISSA VILLA Provider: Khari Zavaleta MD :1950 A ge:75 Y S ex:Female Date:06/15/2025 Address: [address] [id number] Pcp:Jesenia Winkler MD Subjective: * Chief Complaints: [...] 06/15/2025 Generated for Printi ng/Faандрейg/eTransmitting on: 1 10/24/2024 09:42 AM EST
[2025-08-24 09:11] VITALS: BP 128/62; PULSE 71; O2SAT 97; BMI 28.0
--- NOTE | 2025-08-24 09:11 | MHC.PC.OV ---
Vital Signs 08/24/25 09:11 Height 5 ft 1 in Weight 148 lb BMI 28.0 BP 128/62 Blood Pressure Location Lt brachial Position Sitting Pulse 71 Pulse Source Pulse Oximeter Pulse Oximetry (%) 97 Oxygen Delivery Method Room Air Intake Visit Reasons: Annual exam Allergies Sulfa (Sulfonamide Antibiotics) Allergy (Severe, Verified 08/24/25 09:11) Anaphylaxis atenolol Adverse Reaction (Intermediate, Verified 08/24/25 09:11) bradycardia pantoprazole Adverse Reaction (Intermediate, Verified 08/24/25 09:11) Diarrhea Medication List - Last Reconciled 08/24/25 by Jesenia Winkler MD alprazolam 0.5 mg PO BEDTIME PRN ascorbate calcium (vitamin C) 500 mg PO DAILY betamethasone dipropionate 0.05% topical BID PRN blood pressure monitor (Blood Pressure Kit) As directed cetirizine (All Day Allergy (cetirizine)) 10 mg PO DAILY cholecalciferol (vitamin D3) 25 mcg PO DAILY citalopram 20 mg (1/2 x 40 mg) PO DAILY cyclobenzaprine 5 mg PO Q8H PRN lisinopril 10 mg PO DAILY 90 days magnesium oxide 250 mg PO BEDTIME meloxicam 7.5 mg PO DAILY 5 days omeprazole 20 mg PO DAILY simvastatin 40 mg PO QPM triamterene-hydrochlorothiazid 75-50 mg 1 tab PO DAILY 90 days [zinc magnesium and calcium PO .QD] Tobacco use date assessed: 08/01/25 Fall risk assessment: No Falls in past year Last assessed Fall Risk: 08/24/25 Dental Screening Dental Screen Date: 12/01/24 HPI Annual exam HPI Details L chest discomfort, HPI Comments History of Present Illness Details History of Present Illness The patient is a 75-year-old overweight individual presenting for a physical exam. The patient has a past medical history of hypertension, hypercholesterolemia, generalized anxiety disorder, hypothyroidism, nephrolithiasis, and tubular adenoma of the colon, with the last colonoscopy in February 2024. The patient was recently seen on August 01 for bilateral lower extremity pain. Subsequent blood work revealed hypomagnesemia, and the patient was prescribed magnesium, which has reportedly helped with the leg symptoms. The patient has a history of mid-back pain, for which a muscle relaxant was previously given. The patient recently underwent cataract surgery on one eye with Dr. Bayland and plans to have the other eye done in a couple of weeks. The patient also reports that an insurance doctor recently noted a blockage in the neck during an exam. Medications include lisinopril 10 mg, triamterene-hydrochlorothiazide 75/50 mg, simvastatin 40 mg, citalopram 20 mg, and omeprazole. The patient also takes vitamin C, a multivitamin, vitamin D3, Zyrtec for allergies, and alprazolam as needed. There are known allergies to sulfa drugs, atenolol, and pantoprazole. Regarding health maintenance, the patient's last bone density scan was in November 2021, and the patient has declined mammograms. Thyroid testing was last performed in January 2025 and is due for a recheck. Health Maintenance The patient is up-to-date with colonoscopy and immunizations. An order was placed for a follow-up bone density scan, as the last was in November 2021. The patient continues to decline mammograms. Social History - Nutrition: The patient acknowledges that dietary choices have contributed to an increase in cholesterol levels. - Exercise: The patient reports having been walking regularly for two weeks prior to a recent cataract surgery. - Functional Status: The patient ambulates and navigates stairs at home frequently without reported issues. Results - Labs (July 23): - CBC: Normal blood count, no anemia. - CMP: Electrolytes normal. - Creatinine 1.15. - Glucose normal. - Magnesium low. - BUN 30 (Normal 9-16). - Lipid Panel: LDL cholesterol high at 138 mg/dL. - Total cholesterol 237. - TSH: Last done January 2025 and needs retesting. - Other: Iron normal, B12 normal. - Procedures: - Colonoscopy (February 2024): Showed tubular adenoma. - Bone Density (November 2021): Results not detailed. [facility] Medical History Colon cancer screening Anxiety HTN (hypertension) GERD (gastroesophageal reflux disease) Surgical History H/O colonoscopy Hx of tonsillectomy H/O eye surgery H/O rectocele repair Family History Father No problems noted. Mother No problems noted. Sister No problems noted. Daughter No problems noted. Daughter No problems noted. Social History Housing: House Alcohol intake: current Alcohol intake frequency: 0-2 drinks per day Comment: Q day glass of wine Patient Tobacco Use Status: Former Tobacco user Tobacco use type: Cigarette Years Smoked: quit 1984 e-Cigarette/Vaping Use: Never Used Second Hand Smoke Exposure: Yes service: No Current occupational status: retired Cognitive needs: No Hearing needs: No Vision needs: Yes (Glasses) Questionnaire PHQ-9 Over the last 2 weeks, how often have you been bothered by any of the following problems? 1. Little interest or pleasure in doing things: not at all 2. Feeling down, depressed, or hopeless: not at all 3. Trouble falling or staying asleep, or sleeping too much: not at all 4. Feeling tired or having little energy: not at all 5. Poor appetite or overeating: not at all 6. Feeling bad about yourself - or that you are a failure or have let yourself or your family down: not at all 7. Trouble concentrating on things, such as reading the newspaper or watching television: not at all 8. Moving or speaking so slowly that other people could have noticed. Or the opposite - being so fidgety or restless that you have been moving around a lot more than usual: not at all 9. Thoughts that you would be better off or of hurting yourself in some way: not at all Total score: 0 Depression Screening Interpretation: Negative Depression Screening Done: Yes Source: Developed by Drs. Gopi Rodríguez, Estefani Diggs, Juancho Rivero and colleagues, with an educational marquis from [employer]. Thrive Questionnaire Date Thrive assessed: 02/09/25 I am a: Patient What is your living situation today?: I have a steady place to live Within the past 12 months, did the food you bought not last and you didn't have the money to get more?: Never true Within the past 12 months, did you worry whether your food would run out before you got money to buy more?: Never true Do you have trouble paying for medicines?: No Do you have trouble getting transportation to medical appointments?: No Do you have trouble paying your heating and electricity bill?: No Do you have trouble taking care of your child, family member or friend?: No Do you have trouble with day-to-day activities such as bathing, preparing meals, shopping, managing finances, etc.?: No Are you currently unemployed and looking for a job?: No Are you interested in more education?: No Please select the resources that you would like help with: None Currently or been in a relationship where the following occur: No concerns reported THRIVE Score: 0 AUDIT C Alcohol Use Questionnaire (AUDIT-C) 1. How often do you have a drink containing alcohol?: 4 or more times a week 2. How many drinks containing alcohol do you have on a typical day when you are drinking?: 1 or 2 3. How often do you have six or more drinks on one occasion?: Weekly Total Score: 7 WILLY-7 AMB Questionnaire WILLY-7 Date WILLY - 7 assessed: 02/16/25 Source: Developed by Drs. Gopi Rodríguez, Estefani Diggs, Juancho Rivero and colleagues, with an educational marquis from [employer]. Review of Systems Narrative Review of Systems - Constitutional: Denies fever. - Eyes: Reports recent cataract surgery on one eye. - Ears: Reports hearing the heartbeat in the right ear and that hearing is generally good. - Cardiovascular: Denies chest pain, heaviness, or waking up short of breath. - Reports one recent episode of a novel pushing sensation in the chest which occurred while waiting for surgery and has not recurred. - Respiratory: Denies dyspnea on exertion, dysphagia, or coughing when eating. - Gastrointestinal: Denies nausea, vomiting, constipation, or hematochezia. - Reports regular daily bowel movements. - Genitourinary: Denies urinary problems or nocturia. - Musculoskeletal: Reports bilateral lower extremity pain that has improved with magnesium supplementation. - Neurological: Denies syncope or dizziness. Const Denies poor appetite and Denies weakness Eyes Denies no additional complaints ENT Reports Normal hearing present, Denies dizziness, Denies nasal congestion, Denies tinnitus and Denies sore throat Card Denies chest pain, Denies syncope, Denies rapid heart rate and Denies dyspnea Resp Denies cough and Denies dyspnea GI Denies change in stool character, Reports constipation, Denies diarrhea, Denies nausea and Denies vomiting Denies urinary frequency, Denies difficulty voiding and Denies dysuria Neuro Reports Normal hearing present, Denies confusion, Denies dizziness, Denies syncope and Denies weakness Psych Denies confusion Physical exam (Primary Care) Vital Signs: Last Vital Signs Pulse 71 08/24/25 09:11 BP 128/62 08/24/25 09:11 Pulse Ox 97 08/24/25 09:11 Oxygen Delivery Method Room Air 08/24/25 09:11 BMI result Body Mass Index 28.0 Tobacco/Smoking Status: Tobacco use Status Tobacco use date assessed 08/01/25 08/24/25 09:24 Patient Tobacco Use Status Former Tobacco user 08/24/25 09:24 Tobacco use type Cigarette 08/24/25 09:24 e-Cigarette/Vaping Use Never Used 08/24/25 09:24 PHQ-9: PHQ-9 Score PHQ-9: Total score 0 08/24/25 09:40 Depression Screening Interpretation: Negative Thrive Assessment: Date of Thrive Assessment Date Thrive assessed 02/09/25 08/24/25 09:24 Currently or been in a relationship where the following occur: No concerns reported Narrative Physical Exam General: Cooperative, healthy appearing, comfortable, no acute distress and well developed Orientation: Patient oriented x3 Limitations: No limitations Head: Normal to inspection Ears: Hearing less on the right side, eardrum stiffened compared to the left Nose: Normal external nose present Face and sinus: Normal facial exam Eyes: Appearance normal, both eyes and all related structures Neck: Normal visual inspection, Yes full ROM, bilateral bruits noted Respiratory: Normal respiratory effort and able to speak in complete sentences. Clear to auscultation bilaterally Cardiovascular: Regular rate and rhythm. Normal S1 and S2 GI: Normal to inspection. Soft to palpation and nontender Skin: No rashes or lesions noted Neuro: Patient oriented x3 Extremities: Normal to inspection, bilateral lower extremity pain noted previously Const General: No confusion Orientation/consciousness: No confusion HENMT Head: Yes normocephalic Ears: external ears normal and TM's normal bilaterally Face and sinus: Yes normal facial exam Mouth: moist mucous membranes Throat: Yes tonsils normal Eyes Conjunctivae: conjunctivae normal Pupils: Equal, round and reactive pupils present and Pupil accommodation reflex normal Direct Ophthalmoscopy: normal light reflex Neck Neck: No lymphadenopathy Thyroid: Thyroid normal Chest Chest palpation & inspection: normal inspection of the chest Resp Effort & Inspection: normal respiratory effort and no audible wheezes Auscultation: clear to auscultation bilaterally, no crackles, no wheezes and lung sounds not diminished Cardio Rate: regular rate Rhythm: regular rhythm Peripheral pulses: radial pulses present and dorsalis pedis present GI Palpation (GI): no masses Auscultation: normal bowel sounds and normoactive bowel sounds Rectal Exam - Female: deferred Skin General skin exam: no rashes or lesions noted Rashes: no rashes Neuro General: No confusion Cranial nerves: Yes Equal, round and reactive pupils present and Yes Normal hearing present Cognition (Neuro): normal cognition Gait exam (Neuro): Normal gait present Motor exam (neuro): 5/5 motor strength present throughout Deep tendon reflexes (DTR's): Right brachioradialis reflex intensity grade: 2+, Left brachioradialis reflex intensity grade: 2+, Right patellar reflex intensity grade: 2+ and Left patellar reflex intensity grade: 2+ Extrem General: No edema Office Procedures Flu Questionnaire Does the patient have a severe egg allergy?: No Does the patient have severe life threatening allergies?: No Does the patient have a fever or illness today?: No Has the patient ever had Guillain-Hugoton Syndrome?: No Has the patient ever had any past reaction to a flu shot?: No Immunizations Fluarix [id number] (PF) 45 mcg (15 mcg x 3)/0.5 mL IM syringe Performing Provider: Jesenia Winkler MD Performing Location: [facility] Administered by: Ana Ardon CMA on 08/24/25 09:24 Dose Route Admin Location Dispensed Lot Number Expiration Date 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.5 mL IM Right Deltoid 0.5 mL [id number] 03/28/26 [id number] [employer] VIS Given Date VIS Provided VIS Publication Date 08/24/25 Single Vaccine 24 Eligibility Eligibility Date Funding Source Not [facility] Eligible 08/24/25 Private Coding Level of Care Code Est Pt Prev Care >65y(36788) Diagnoses Annual physical exam Z00.00 Primary hypertension I10 Hypertension type: primary hypertension Hypercholesterolemia E78.00 Acquired hypothyroidism E03.9 Hypothyroidism type: acquired Osteopenia of multiple sites M85.89 Osteopenia location: multiple sites Hypomagnesemia E83.42 Gastroesophageal reflux disease without esophagitis K21.9 Esophagitis presence: without esophagitis History of cataract surgery Z98.49 Carotid artery bruit R09.89 Assessment & Plan Assessment & Plan (1) Annual physical exam: Code(s): Z00.00 - Encounter for general adult medical examination without abnormal findings Category: Medical Plan: Patient is advised to eat healthy, keep well hydrated, keep active and have adequate sleep. (2) Hypertension: Code(s): I10 - Essential (primary) hypertension Category: Medical Qualifiers: Hypertension type: primary hypertension Qualified Code(s): I10 - Essential (primary) hypertension Plan: Continue with blood pressure medication. Decrease salt intake and exercise patient is taking lisinopril 10 mg once a day and triamterene hydrochlorothiazide 75/50 mg once a day (3) Hypercholesterolemia: Code(s): E78.00 - Pure hypercholesterolemia, unspecified Category: Medical Plan: Avoid fried foods, chicken skin, eggs, butter margarine, pastries and meat. Be it pork or beef they have a lot of cholesterol LDL goal of less than 130 and triglyceride of less than 150 patient is on simvastatin 40 mg once a day (4) Hypothyroidism: Code(s): E03.9 - Hypothyroidism, unspecified Category: Medical Qualifiers: Hypothyroidism type: acquired Qualified Code(s): E03.9 - Hypothyroidism, unspecified Plan: Continue with thyroid medication but needs to be retested (5) Osteopenia: Comment: 2021 Code(s): M85.80 - Other specified disorders of bone density and structure, unspecified site Category: Medical Qualifiers: Osteopenia location: multiple sites Qualified Code(s): M85.89 - Other specified disorders of bone density and structure, multiple sites Plan: Discussed about follow-up bone density (6) Hypomagnesemia: Code(s): E83.42 - Hypomagnesemia Category: Medical Plan: Replete magnesium with magnesium oxide (7) GERD (gastroesophageal reflux disease): Code(s): K21.9 - Gastro-esophageal reflux disease without esophagitis Category: Medical Qualifiers: Esophagitis presence: without esophagitis Qualified Code(s): K21.9 - Gastro-esophageal reflux disease without esophagitis Plan: Avoid the foods that causes that usually spicy foods, tomato products, juices, coffee, soda and foods that your sensitive to. After eating do not lie down, allow 3-4 hours before in lie down. And keep the head of bed above 30 degrees to avoid the acid from going up. (8) History of cataract surgery: Comment: 07/[address] Paz Code(s): Z98.49 - Cataract extraction status, unspecified eye Category: Surgical (9) Carotid artery bruit: Code(s): R09.89 - Other specified symptoms and signs involving the circulatory and respiratory systems Category: Medical Plan Plan Patient was informed and verbally consented to the use of an ambient scribe for clinic note documentation during this visit. 1. Hyperlipidemia The patient's LDL cholesterol is elevated at 138 mg/dL, above the goal of <130 mg/dL, and the total cholesterol is 237 mg/dL, showing a worsening trend. The patient is currently on the maximum dose of simvastatin 40 mg daily. It was discussed that a stronger medication would be necessary if lifestyle changes are ineffective. The patient has opted to attempt dietary modifications for three months. A fasting lipid panel will be rechecked in three months to assess response. 2. Hypertension Blood pressure is well-controlled. The plan is to continue the current regimen of lisinopril 10 mg and triamterene-hydrochlorothiazide 75/50 mg daily. 3. Hypomagnesemia / Dehydration / Chronic Kidney Disease Recent labs showed low magnesium, an elevated BUN of 30, and a creatinine of 1.15, which is an increase from previous levels. These findings are likely multifactorial, related to medication side effects (HCTZ, omeprazole) and inadequate fluid intake. The patient will continue magnesium oxide supplementation, which has improved leg cramps. The patient was counseled to increase daily water intake to 6-8 glasses and to avoid NSAIDs (e.g., ibuprofen, Aleve), using acetaminophen for pain instead, to protect renal function. 4. Carotid Bruit The patient was recently informed of a potential blockage in the neck, and bilateral carotid bruits were auscultated on exam. The patient denies associated symptoms such as dizziness or syncope. It was explained that surgical intervention is generally not pursued unless there are symptoms or near-complete stenosis, given the procedural risks. A carotid ultrasound has been ordered for further evaluation. 5. Hypothyroidism The patient is on thyroid medication, and the last TSH was in January 2025. The plan is to continue the current medication and recheck TSH levels with the next lab draw in three months. Discussion Notes I reviewed the patient's recent lab work. We discussed the hyperlipidemia, noting the LDL is 138 mg/dL and trending upwards. I explained that the current medication, simvastatin 40 mg, is at its maximum dose, and if diet is not effective, we would need to switch to a different agent. The patient agreed to attempt dietary modification, and we will recheck a fasting lipid panel in three months. I also addressed the elevated BUN and creatinine, explaining this is a sign of dehydration and a gradual decline in kidney function. I emphasized the importance of increasing water intake to 6-8 glasses daily and avoiding NSAIDs like ibuprofen to protect the kidneys. We discussed that the low magnesium is a side effect of both HCTZ and omeprazole. Bilateral carotid bruits were noted on exam. I explained that while this suggests possible stenosis, we do not intervene surgically without significant symptoms or near-total blockage due to the risks. As the patient is asymptomatic, we will proceed with a carotid ultrasound for further assessment. I placed orders for a follow-up bone density scan and lab work in three months, to include a lipid panel and TSH. We reviewed that the patient is up-to-date on vaccinations. Patient Instructions - Continue to take all your current medications as prescribed, including the magnesium supplement, which is helping your leg cramps. - Please make an effort to improve your diet over the next three months to help lower your cholesterol. - It is very important to drink more water, aiming for 6 to 8 glasses a day, to help your kidneys. - If you need pain relief, use Tylenol. - Avoid medications like Ibuprofen (Advil, Motrin) and naproxen (Aleve), as they can be hard on your kidneys. - I have ordered an ultrasound of the arteries in your neck. - The scheduling department will call you to set up this appointment. - I have also ordered a bone density scan. - You will be contacted to schedule this test. - In three months, please go for a follow-up blood test. - You will need to fast (nothing to eat or drink except water) before this test. - Let me know if the chest sensation you described returns or worsens. Orders: Orders Influenza [id number] Immunization Today Z23 - Encounter for immunization Complete Blood Count Auto Diff 3 Months E78.00 - Pure hypercholesterolemia, unspecified Free T4 (Free Thyroxine) 3 Months E78.00 - Pure hypercholesterolemia, unspecified Magnesium 3 Months E78.00 - Pure hypercholesterolemia, unspecified US carotid duplex BI Today R09.89 - Other specified symptoms and signs involving the circulatory and respiratory systems Comprehensive Met. Panel 3 Months E78.00 - Pure hypercholesterolemia, unspecified Lipid Panel 3 Months E78.00 - Pure hypercholesterolemia, unspecified Thyroid Stimulating Hormone 3 Months E78.00 - Pure hypercholesterolemia, unspecified Vitamin B12 and Folate 3 Months E78.00 - Pure hypercholesterolemia, unspecified Hemoglobin A1c 3 Months E78.00 - Pure hypercholesterolemia, unspecified UA CC w/rflx Micro + Cult 3 Months E78.00 - Pure hypercholesterolemia, unspecified, R30.0 - Dysuria XR DEXA axial skeleton Today M81.0 - Age-related osteoporosis without current pathological fracture, M85.89 - Other specified disorders of bone density and structure, multiple sites Medications: Discontinued meloxicam Discontinued Reason: Doctor's Order 7.5 mg PO DAILY 5 days 5 tabs 0RF
--- OUTSIDE RECORDS SUMMARY | 2025-08-24 09:43 | XMS_ITS | Patient Health Record ---
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 [employer] Name Role Phone Chapito Mena MD Primary Care Provider Unavail able Black, Maribel Unavailable [phone] Allergies Allergen (clinical drug ingredient) Drug/Non Drug [...] Treatment Pending Test Test Name Order Date [id number] NAIL, 6 OR MORE 04/29/2014 [id number] NAIL, 6 OR MORE 08/31/2015 [id number] NAIL, 6 OR MORE 02/29/2016 [id number] NAIL, 6 OR MORE 09/05/2016 [id number] Plate 04/29/2014 [id number] Plate Each Additional 09/2013 Insurance Providers Payer Name Payer Address Payer Phone Subscriber Number Group Number Insured Name Patient Relationship to Insured Coverage Start Date Coverage End Date [employer] Medicare [id number] [address] [address] [place] [phone] [id number] Geraldine Best Self - patient is the insured Medical (General) History Medical History History ICD Code anxiety high blood pressure scarlet fever measles chicken pox Mumps Surgical History Surgery Date(Month/Year) eye surgery
--- OUTSIDE RECORDS SUMMARY | 2025-08-24 09:43 | XMS_ITS | Patient Health Record ---
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 Section Notes: Nonsmoker; 1 glass of wine w ith dinner Nonsmoker; 1 glass of wine w ith dinner Problems Problem Type SNOMED Code ICD Code Onset Dates Problem Status W/U Status Risk Notes Problem Colon cancer screening (728233884) Colon cancer screening (Z12.11) Active confirmed Problem History of adenomatous polyp of colon (372368063) History of adenomatous polyp of colon (Z86.010) Active confirmed Problem History of polyp of colon (situation) (673921398) Personal history of colonic polyps (Z86.010) Active confirmed Problem Pre-procedure evaluation check (925876438) Encounter for other preprocedural examination (Z01.818) Active confirmed Problem Diverticular disease of colon (155070627) Diverticulosis of large intestine without perforation or abscess without bleeding (K57.30) Active confirmed Encounters Encounter Location Date Provider Diagnosis [facility] [address] [place] [address] 2025 Gopi Zavaleta Plan Of Treatment Pending Test Test Name Order Date Pathology 03/01/2024 Future Test Test Name Order Date COLONOSCOPY 10/14/2012 COLONOSCOPY 12/02/2023 Insurance Providers Payer Name Payer Address Payer Phone Subscriber Number Group Number Insured Name Patient Relationship to Insured Coverage Start Date Coverage End Date [facility] [address] [place] [address] [phone] [id number] MALISSA TABARES Self - patient is the insured Medical (General) History Medical History History ICD Code Colonoscopy 05/18/2007-with removal of a tubular adenoma Anxiety HTN Hyperlipidemia Denies PA,DM,CVA,Lung disease,renal dise ase Negative screening colonoscopy in 2012 Surgical History Surgery Date(Month/Year) Rectocele surgery Left Eye surgery for lazy eye
--- OUTSIDE RECORDS SUMMARY | 2025-08-24 09:43 | XMS_ITS | Clinical Summary ---
Author Organization [facility] ity Address [address] [place] [address] Care Team Providers Care Per Diem Physical Therapist Name Role Phone Sendy Conley MD Primary Care Provider [phone] Allergies Active Allergy Reactions Criticality Noted Date [...] kidney disease) stage 3, GFR 30-59 ml/min ([facility] V24, [facility] V28) 05/16/2015 Diverticulosis 04/21/2013 Overview (09/24/2024): Seen [...] Site/Laterality Comments OTHER SURGICAL HISTORY 1960 PROCEDURE: [place] UNLISTED PROCEDURE EXTRAOCULAR MUSCLE OTHER SURGICAL HISTORY 1970 PROCEDURE: [place] REPAIR RECTOCELE SEPARATE PROCEDURE TONSILLECTOMY 1951 PROCEDURE: HISTORICAL TONSILLECTOMY COLONOSCOPY 02/18/13 PROCEDURE: HISTORICAL COLONOSCOPY MULTIPLE TOOTH EXTRACTIONS PROCEDURE: HISTORICAL DENTAL EXTRACTION OTHER SURGICAL HISTORY 11/2018 PROCEDURE: MAMMOGRAM Medical History Medical History Date Comments Essential hypertension, benign D X:Essential hypertension, benign Pure hypercholesterolemia DX:Pur e hypercholesterolemia 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/13/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 History of malignant neoplas m of [...] (World Health Organization Fracture Risk Assessment) [facility] Department of Internal Medicine recommends [...] alternative screening schedule based on [place] [facility] October 17, 2011 for patients with osteopenia [...] (World Health Organization Fracture Risk Assessment) [facility] Department of Internal Medicine recommendsusing [...] Recently Relevant to Health Maintenance Care Teams Per Diem Physical Therapist Relationship Specialty Start Date End Date Sendy Conley MD [address] [place] [address] PCP - General Internal Medicine 04/24/20
== END 2025-08-24 10:09 | disposition home or self-care (01) ==
LOC: HO.HMCH 09:04
PROVIDERS: PCP Internal Medicine; Visit Provider Internal Medicine
DX: Z00.00 Encounter for general adult medical examination without abnormal findings (principal); I10 Essential (primary) hypertension; E78.00 Pure hypercholesterolemia, unspecified; E03.9 Hypothyroidism, unspecified; M85.89 Other specified disorders of bone density and structure, multiple sites; E83.42 Hypomagnesemia; K21.9 Gastro-esophageal reflux disease without esophagitis; Z98.49 Cataract extraction status, unspecified eye; R09.89 Other specified symptoms and signs involving the circulatory and respiratory systems; Z23 Encounter for immunization

== ENCOUNTER → 2025-08-24 09:03 | Outpatient (BNVA) | payer MEDICARE, SELFPAY | PROVIDERS: PCP Internal Medicine; Visit Provider Internal Medicine | DX: Z00.00 Encounter for general adult medical examination without abnormal findings (principal); E66.3 Overweight; M79.605 Pain in left leg; M79.604 Pain in right leg; I10 Essential (primary) hypertension; E78.00 Pure hypercholesterolemia, unspecified; E03.9 Hypothyroidism, unspecified; M85.89 Other specified disorders of bone density and structure, multiple sites; E83.42 Hypomagnesemia; K21.9 Gastro-esophageal reflux disease without esophagitis; R09.89 Other specified symptoms and signs involving the circulatory and respiratory systems; Z23 Encounter for immunization; Z98.49 Cataract extraction status, unspecified eye; Z79.899 Other long term (current) drug therapy; Z68.28 Body mass index [BMI] 28.0-28.9, adult | CPT/HCPCS: 90471; 90656; 96127; 99397 ==